=== PATIENT | female | born 1955 | race Caucasian/White ===

== ENCOUNTER → 2016-10-07 | Outpatient (CLI) | payer MEDICARE, BC ==
[2016-10-07 20:29] LABS: Basophils # (A) 0.1 k/uL (0-0.2); Basophils % (A) 1 %; CH 29.9; CHCM 32.7; Eosinophils # (A) 0.2 k/uL (0-0.7); Eosinophils % (A) 3 %; HCT 47.2 % (34.0-46.0); HDW 2.68; HGB 15.2 gm/dL (11.4-16.0); Luc # (Auto) 0.14; Luc % (Auto) 1; Lymphocytes # (A) 1.6 k/uL (1.0-4.8); Lymphocytes % (A) 17 %; MCH 29.7 pg (25.0-35.0); MCHC 32.3 g/dL (31.0-37.0); MCV 91.8 fL (80.0-100.0); Mean Platelet Volume 8.4; Monocytes # (A) 0.5 k/uL (0-1.0); Monocytes % (A) 5 %; Neutrophils # (A) 7.1 k/uL (1.3-7.7); Neutrophils % (A) 73 %; RBC 5.14 m/uL (3.80-5.40); RDW 13.6 % (11.5-15.5); WBC 9.7 k/uL (3.8-10.6); WBC (Perox) 9.87
[2016-10-07 21:19] LABS: ALT 37 U/L (9-52); AST 16 U/L (14-36); Alkaline Phosphatase 130 U/L (38-126); Amylase 41 U/L (30-110); Anion Gap 12 mmol/L; Blood Urea Nitrogen 25 mg/dL (7-17); Calcium 9.6 mg/dL (8.4-10.2); Carbon Dioxide 27 mmol/L (22-30); Chloride 105 mmol/L (98-107); Glucose 96 mg/dL (74-99); Non-African American GFR(MDRD) 51 (>60 ml/min/1.73 sqM); Sodium 144 mmol/L (137-145); Total Bilirubin 1.6 mg/dL (0.2-1.3); Total Protein 7.4 g/dL (6.3-8.2)
== END | disposition home or self-care (01) ==
LOC: MMGSC 12:43
PROVIDERS: ATTEND Family Medicine
DX: R10.9 Unspecified abdominal pain (principal)
CPT/HCPCS: 36415; 80053; 82150; 83690; 85025; 99214

== ENCOUNTER → 2016-10-13 | Outpatient (CLI) | payer MEDICARE, BC ==
--- NOTE | 2016-10-13 09:53 | US ---
EXAMINATION TYPE: US abdomen complete DATE OF EXAM: 10/13/2016 9:31 AM COMPARISON: No previous CLINICAL HISTORY: RUQ Pain R10.11, R10.84 Nausea, R11.0 Abd Pain. RUQ pain x 1 month, nausea, loss of appetite, diarrhea, history of cholecystectomy, obese patient EXAM MEASUREMENTS: Liver Length: 19.0 cm Gallbladder Wall: surgically absent CBD: 0.6 cm Spleen: 11.5 cm Right Kidney: 11.2 x 5.1 x 5.0 cm Left Kidney: 11.1 x 5.5 x 5.1 cm Technically difficult and limited study due to patient's body habitus Pancreas: visualized portions wnl, tail obscured by overlying midline bowel gas Liver: enlarged at 19.0cm, heterogeneous without any definite lesions seen at this time, scanned int ercostally, limited by rib shadowing Gallbladder: surgically absent Evidence for sonographic Jones's sign: no CBD: visualized portions wnl, limited by overlying bowel gas Spleen: visualized portions wnl, limited by rib shadowing Right Kidney: wnl Left Kidney: 0.6cm echogenic focus superior pole Upper IVC: wnl Abd Aorta: visualized portions wnl, limited by overlying midline bowel gas The liver is heterogenous. The intrahepatic portion of the IVC and proximal abdominal aorta are withi n normal limits. The gallbladder is surgically absent. Common bile duct is unremarkable. The visuali zed portions of the pancreas are homogenous. The spleen is unremarkable. Kidneys are symmetric and free of hydronephrosis. Nonobstructing calculus upper pole left kidney. No renal lesions are seen. IMPRESSION: 1. Fatty liver versus diffuse hepatocellular disease. Mild hepatomegaly. 2. Nonobstructing calculus upper pole left kidney.
== END | disposition home or self-care (01) ==
LOC: RADUSWWP 09:06
PROVIDERS: ATTEND Family Medicine
DX: R16.0 Hepatomegaly, not elsewhere classified (principal); N20.0 Calculus of kidney
CPT/HCPCS: 76700

== ENCOUNTER → 2017-02-18 | Outpatient (CLI) | payer MEDICARE, BC ==
--- NOTE | 2017-02-18 21:24 | XR ---
EXAMINATION TYPE: XR KUB DATE OF EXAM: 02/18/2017 COMPARISON: NONE HISTORY: Pain TECHNIQUE: One view abdominal series FINDINGS: The osseous structures are intact. The bowel gas pattern is nonspecific. Lung bases are clear. Calc ifications the pelvis are nonspecific. Arthropathy of the hips. Surgical change in the right upper qu adrant. Degenerative change of the spine. IMPRESSION: 1. Nonspecific abdomen. No definite calcifications overlying the left kidney. Calcifications in the pelvis are nonspecific. A distal ureteral calculus cannot be entirely excluded. No prior x-ray availa ble to compare.
== END ==
LOC: RADXRMAIN 16:16
PROVIDERS: ATTEND Urology
DX: N20.0 Calculus of kidney (principal)
CPT/HCPCS: 74000

== ENCOUNTER → 2017-02-23 | Outpatient (CLI) | payer MEDICARE, BC ==
[2017-02-23 19:33] LABS: Basophils % (A) 1 %; CH 29.8; CHCM 33.5; Eosinophils # (A) 0.2 k/uL (0-0.7); Eosinophils % (A) 3 %; HCT 42.2 % (34.0-46.0); HDW 2.97; HGB 14.4 gm/dL (11.4-16.0); Luc # (Auto) 0.19; Luc % (Auto) 3; Lymphocytes # (A) 1.6 k/uL (1.0-4.8); Lymphocytes % (A) 21 %; MCH 30.6 pg (25.0-35.0); MCHC 34.2 g/dL (31.0-37.0); MCV 89.6 fL (80.0-100.0); Mean Platelet Volume 8.4; Monocytes # (A) 0.5 k/uL (0-1.0); Monocytes % (A) 6 %; Neutrophils % (A) 67 %; RBC 4.72 m/uL (3.80-5.40); RDW 13.4 % (11.5-15.5); WBC 7.5 k/uL (3.8-10.6); WBC (Perox) 7.45
[2017-02-23 19:40] LABS: ALT 40 U/L (9-52); AST 22 U/L (14-36); Alkaline Phosphatase 127 U/L (38-126); Anion Gap 12 mmol/L; Blood Urea Nitrogen 15 mg/dL (7-17); Calcium 9.6 mg/dL (8.4-10.2); Carbon Dioxide 23 mmol/L (22-30); Chloride 110 mmol/L (98-107); Cholesterol 160 mg/dL (<200); Glucose 97 mg/dL (74-99); HDL Cholesterol 49 mg/dL (40-60); Non-African American GFR(MDRD) >60 (>60 ml/min/1.73 sqM); Potassium 4.1 mmol/L (3.5-5.1); Sodium 145 mmol/L (137-145); Total Bilirubin 1.1 mg/dL (0.2-1.3); Total Protein 6.7 g/dL (6.3-8.2)
[2017-02-23 20:28] LABS: Vitamin B12 331 pg/mL (239-931)
== END | disposition home or self-care (01) ==
LOC: MMGSC 13:51
PROVIDERS: ATTEND Family Medicine
DX: E78.5 Hyperlipidemia, unspecified (principal); R53.83 Other fatigue; I10 Essential (primary) hypertension; R10.11 Right upper quadrant pain
CPT/HCPCS: 36415; 80053; 80061; 82306; 82607; 84443; 85025

== ENCOUNTER → 2017-08-10 | Outpatient (CLI) | payer MEDICARE, BC | END | disposition home or self-care (01) | LOC: MMGSC 12:12 | PROVIDERS: ATTEND Family Medicine | DX: J32.9 Chronic sinusitis, unspecified (principal) | CPT/HCPCS: 87070; 90686; 99214 ==

== ENCOUNTER → 2017-11-07 | Outpatient (CLI) | payer MEDICARE, BC ==
--- NOTE | 2017-11-07 13:13 | CT ---
EXAMINATION TYPE: CT abdomen pelvis w con DATE OF EXAM: 11/07/2017 HISTORY: c/o nausea and vomiting, RUQ pain, left groin pain X 9 months. hx of son, tumor removed fr om colon years ago CT DLP: 2438.8mGycm Automated Exposure Control for Dose Reduction was Utilized. CONTRAST: CT scan of the abdomen and pelvis is performed with oral and with IV Contrast, patient injected with 100 mL of Isovue 300. COMPARISON: None. FINDINGS: LUNG BASES: There is some bibasilar linear scarring and/or atelectasis. LIVER/GB: Cholecystectomy clips are seen. PANCREAS: No significant abnormality is seen. SPLEEN: No significant abnormality is seen. ADRENALS: No significant abnormality is seen. KIDNEYS: No significant abnormality is seen. BOWEL: The oral contrast reaches level of the mid transverse colon. There is no suspicious small or l arge bowel dilatation. A few diverticula are seen in the sigmoid colon. There is no convincing CT daya dence for acute diverticulitis. UTERUS/ADNEXA: Uterus is surgically absent or markedly atrophic in appearance. Scattered pelvic phleb oliths are seen. There is 1.3 cm round soft tissue lesion right lower abdomen/upper pelvis anterior t o the iliopsoas muscle could reflect high position residual right ovary or slightly enlarged lymph no de. Clinical correlation advised. LYMPH NODES: No greater than 1cm abdominal or pelvic lymph nodes are clearly appreciated. OSSEOUS STRUCTURES: There is underlying levoconvex scoliosis centered at L1-L2 level. There is advanc ed disc space narrowing and spurring right L1-L2 level. There is facet arthropathy lower lumbar level s. OTHER: No significant additional abnormality is seen. IMPRESSION: No significant acute finding is seen to account for patient's clinical symptoms. Possibly high position residual right ovary versus slightly enlarged right-sided lymph node. Clinical correla tion advised.
== END | disposition home or self-care (01) ==
LOC: RADCTMAIN 11:55
PROVIDERS: ATTEND Family Medicine
DX: R10.11 Right upper quadrant pain (principal); R10.32 Left lower quadrant pain; R11.2 Nausea with vomiting, unspecified
CPT/HCPCS: 74177; Q9967

== ENCOUNTER → 2017-11-30 | Outpatient (CLI) | payer MEDICARE, BC | END | disposition home or self-care (01) | LOC: LABWHC1 10:53 | PROVIDERS: ATTEND Nurse Practitioner Acute Care | DX: I49.3 Ventricular premature depolarization (principal); I49.9 Cardiac arrhythmia, unspecified | CPT/HCPCS: 93005 ==

== ENCOUNTER 2018-01-31 10:53 | Observation (INO) | payer MEDICARE, BC ==
[2018-01-31] MEDS ORDERED: ASPIRIN 81 MG PO STA (11:11)
--- NOTE | 2018-01-31 11:15 | ED ---
Chest Pain HPI - General Chief Complaint: Chest Pain Stated Complaint: Chest pain/sob Time Seen by Provider: 01/31/18 11:05 Source: patient, RN notes reviewed Mode of arrival: wheelchair Limitations: no limitations - History of Present Illness Initial Comments: This is a 63-year-old female who presents with complaints of several days of chest pain seems be worse especially last evening she states is been pressure like chest pain but was very crushing last evening currently is about 8/10 severity he gets somewhat better sitting up but is really better when she supine. She states his mid and right-sided chest pain no cough no fevers chills sweats no recent trauma she states she did have chest pain in the past did have a cardiac catheterization that was good his pain is different than his last pain she had. She also does relate that she uses sleep apnea machine and at times a nasal part will come off. She's not sure whether this has anything to do with the pain today. MD Complaint: chest pain - Related Data Home Medications Medication Instructions Recorded Confirmed Baclofen 10 mg PO TID 01/03/15 01/31/18 Hydrocodone/Acetaminophen [Lortab 1 each PO Q6HR PRN 01/03/15 01/31/18 7.5-325 mg Tablet] Naproxen 500 mg PO Q12HR 01/03/15 01/31/18 Pantoprazole Sodium [Protonix] 40 mg PO BID 01/03/15 01/31/18 tiZANidine [Zanaflex] 4 mg PO HS 01/03/15 01/31/18 Aspirin [Adult Low Dose Aspirin EC] 81 mg PO HS 04/02/16 01/31/18 Atorvastatin [Lipitor] 40 mg PO W/SUPPER 04/02/16 01/31/18 Cholecalciferol [Vitamin D3] 2,000 unit PO DAILY 04/02/16 01/31/18 Gabapentin [Neurontin] 300 mg PO BID 04/02/16 01/31/18 Hydrochlorothiazide [Hydrodiuril] 25 mg PO DAILY 04/02/16 01/31/18 Metoprolol Tartrate [Lopressor] 50 mg PO BID 04/02/16 01/31/18 Oxybutynin Chloride [Ditropan XL] 5 mg PO DAILY 04/02/16 01/31/18 Theophylline 24 Hour [Mark-24] 300 mg PO DAILY PRN 04/02/16 01/31/18 Tolterodine ER [Detrol LA] 4 mg PO DAILY 04/02/16 01/31/18 rOPINIRole HCL [Requip] 0.5 mg PO HS 04/02/16 01/31/18 Escitalopram [Lexapro] 20 mg PO DAILY 01/31/18 01/31/18 Topiramate [Topamax] 50 mg PO DAILY 01/31/18 01/31/18 Venlafaxine HCl ER [Effexor Xr] 37.5 mg PO DAILY 01/31/18 01/31/18 Allergies Allergy/AdvReac Type Severity Reaction Status Date / Time iodine Allergy Rash/Hives, Verified 01/31/18 11:31 itching Review of Systems ROS Statement: Those systems with pertinent positive or pertinent negative responses have been documented in the HPI. ROS Other: All systems not noted in ROS Statement are negative. EKG Findings - EKG Results: EKG: interpreted by ERMD (This EKG was compared with one dated 11/30/17), sinus rhythm (Sinus rhythm rate 68 IL interval 150 to QRS duration 84 daily since QTC of 392/416 nonspecific septal changes) Past Medical History Past Medical History: Asthma, Cancer, Chest Pain / Angina, Fibromyalgia, GERD/ Reflux, Hyperlipidemia, Hypertension, Musculoskeletal Disorder, Neurologic Disorder, Osteoarthritis (OA), Pneumonia, Sleep Apnea/CPAP/BIPAP Additional Past Medical History / Comment(s): hx endometrial cancer (in remission,) migraines, irregular heartbeat, varicose veins, poor circulation- swelling lower legs and feet, cerebral palsy-uses cane History of Any Multi-Drug Resistant Organisms: None Reported Past Surgical History: Cholecystectomy, Hysterectomy, Tonsillectomy Additional Past Surgical History / Comment(s): Carlos cataract, carorid tumor removed,cervical discectomy with fusion, R breast lumpectomy, cox neuromas carlos feet Past Anesthesia/Blood Transfusion Reactions: Previous Problems w/ Anesthesia, Motion Sickness, Postoperative Nausea & Vomiting (PONV) Additional Past Anesthesia/Blood Transfusion Reaction / Comment(s): diff coming out of anesthesia Past Psychological History: Anxiety, Depression Smoking Status: Never smoker Past Alcohol Use History: None Reported Past Drug Use History: None Reported - Past Family History Mother Family Medical History: No Reported History General Exam - General Exam Comments Initial Comments: This is a well-developed well-nourished awake alert oriented 3 female Limitations: no limitations General appearance: alert, anxious Head exam: Present: atraumatic, normocephalic, normal inspection Eye exam: Present: normal appearance, PERRL, EOMI. Absent: scleral icterus, conjunctival injection, periorbital swelling ENT exam: Present: normal exam, mucous membranes moist Neck exam: Present: normal inspection, full ROM. Absent: tenderness, meningismus, lymphadenopathy Respiratory exam: Present: normal lung sounds bilaterally, chest wall tenderness (Some tenderness over the costochondral and costosternal margin on the right but this does not reproduce the patient's pain she states.). Absent: respiratory distress, wheezes, rales, rhonchi, stridor Cardiovascular Exam: Present: regular rate, normal rhythm, normal heart sounds. Absent: systolic murmur, diastolic murmur, rubs, gallop, clicks GI/Abdominal exam: Present: soft, normal bowel sounds, other (Obese abdomen). Absent: distended, tenderness, guarding, rebound, rigid Extremities exam: Present: normal inspection, full ROM, normal capillary refill. Absent: tenderness, pedal edema, joint swelling, calf tenderness Back exam: Present: normal inspection Neurological exam: Present: alert, oriented X3, CN II-XII intact Psychiatric exam: Present: normal affect, normal mood Skin exam: Present: warm, dry, intact, normal color. Absent: rash Course Vital Signs 01/31/18 01/31/18 01/31/18 10:57 11:43 12:00 Temperature 98.6 F Pulse Rate 76 58 L 60 Respiratory 18 18 18 Rate Blood Pressure 157/79 137/64 132/68 O2 Sat by Pulse 95 97 96 Oximetry 01/31/18 01/31/18 12:34 13:28 Temperature Pulse Rate 77 52 L Respiratory 18 20 Rate Blood Pressure 119/65 130/61 O2 Sat by Pulse 95 98 Oximetry Chest Pain MDM - MDM I did review the imaging and report no acute findings. Patient still is having intermittent chest pain patient will be admitted for inpatient evaluation I did discuss the case with the patient her and Dr. Leung Disposition Clinical Impression: Unstable angina pectoris, Chest pain Disposition: ADMITTED IP TO THIS HOSP Condition: Stable Referrals: Monique Maloney MD [Primary Care Provider] - 1-2 days
[2018-01-31 11:46] LABS: Basophils % (A) 0 %; Eosinophils # (A) 0.2 k/uL (0-0.7); Eosinophils % (A) 2 %; HCT 41.3 % (34.0-46.0); HGB 13.9 gm/dL (11.4-16.0); Lymphocytes # (A) 1.4 k/uL (1.0-4.8); Lymphocytes % (A) 14 %; MCH 29.3 pg (25.0-35.0); MCHC 33.5 g/dL (31.0-37.0); MCV 87.4 fL (80.0-100.0); Monocytes # (A) 0.5 k/uL (0-1.0); Monocytes % (A) 6 %; Neutrophils # (A) 7.6 k/uL (1.3-7.7); Neutrophils % (A) 77 %; Platelet Count 338 k/uL (150-450); RBC 4.73 m/uL (3.80-5.40); RDW 13.3 % (11.5-15.5); WBC 9.9 k/uL (3.8-10.6)
[2018-01-31] MEDS: NITROGLYCERIN SL TABS 0.4 MG TAB SUBLINGUAL STA ×3 (11:48→12:12)
[2018-01-31 11:54] LABS: ALT 34 U/L (9-52); AST 22 U/L (14-36); Alkaline Phosphatase 121 U/L (38-126); Amylase <30 U/L (30-110); Anion Gap 9 mmol/L; Blood Urea Nitrogen 14 mg/dL (7-17); Calcium 9.4 mg/dL (8.4-10.2); Carbon Dioxide 26 mmol/L (22-30); Chloride 105 mmol/L (98-107); Glucose 104 mg/dL (74-99); Lipase 45 U/L (23-300); Magnesium 1.8 mg/dL (1.6-2.3); Potassium 3.6 mmol/L (3.5-5.1); Sodium 140 mmol/L (137-145); Total Bilirubin 1.3 mg/dL (0.2-1.3); Total Protein 6.5 g/dL (6.3-8.2)
[2018-01-31 12:07] LABS: Creatine Kinase 74 U/L (30-135)
[2018-01-31 12:19] LABS: Troponin I <0.012 ng/mL (0.000-0.034)
[2018-01-31 12:27] LABS: Partial Thromboplastin Time 24.8 sec (22.0-30.0); Prothrombin Time 10.1 sec (9.0-12.0)
[2018-01-31 12:42] LABS: D-Dimer 0.7 mg/L FEU (<0.60)
[2018-01-31] MEDS ORDERED: FAMOTIDINE 20 MG/2 ML VIAL IV STA (12:51)
[2018-01-31] MEDS ORDERED: methylPREDNISolone SOD SUCCI 125 MG/2 ML VIAL IV STA (12:51)
[2018-01-31] MEDS ORDERED: diphenhydrAMINE 50 MG/ML 1 ML VIAL IVP STA (12:51)
--- NOTE | 2018-01-31 12:54 | XR ---
EXAMINATION TYPE: XR chest 2V DATE OF EXAM: 01/31/2018 COMPARISON: NONE HISTORY: Chest pain and shortness of breath TECHNIQUE: Frontal and lateral views of the chest are obtained. FINDINGS: There is no focal air space opacity, pleural effusion, or pneumothorax seen. The cardiac silhouette size is within normal limits. Patient shows postoperative change to the neck. There are ov erlying cardiac leads. Strand-like densities at the right lung base are noted. IMPRESSION: Probable basilar atelectasis, follow-up as indicated.
--- NOTE | 2018-01-31 15:00 | CT ---
EXAMINATION TYPE: CT chest angio for PE DATE OF EXAM: 01/31/2018 COMPARISON: None HISTORY: 63-year-old female Shortness of breath and Mid to Right sided Chest pain for 3 days TECHNIQUE: Contiguous axial scanning of the chest performed with IV Contrast, patient injected with 1 00 mL of Isovue 370. Coronal/sagittal MIP reconstructions performed. CT DLP: 937.6 mGycm Automated exposure control for dose reduction was used. FINDINGS: Heart is upper limits of normal in size without pericardial effusion. Aorta is normal caliber with conventional arch vessel branching anatomy. Satisfactory opacification of the pulmonary artery system but with mild motion artifacts and addition al artifacts due to patient's large body habitus. This results in heterogeneity especially of the seg mental and more distal arterial branches of the lower lobes. No pulmonary embolus seen within the upp er or mid lungs. No thoracic lymphadenopathy. Strandy atelectasis in the mid and lower lungs. No consolidation or pleural effusion. Visualized upper abdomen shows cholecystectomy clips. Bones: ACDF hardware. Degenerative disc disease lower thoracic spine. IMPRESSION: 1. ARTIFACTS DUE TO SOME MILD MOTION BUT ALSO DUE TO LARGE BODY HABITUS. MANY OF THE SEGMENTAL AND MO RE DISTAL BRANCHES OF THE LOWER LOBES ARE NONDIAGNOSTIC. NO PULMONARY EMBOLUS SEEN IN THE UPPER OR OR D LUNGS. 2. STRANDY AREAS OF ATELECTASIS MID AND LOWER LUNGS.
[2018-01-31] MEDS ORDERED: HEPARIN SODIUM,PORCINE 5,000 UNIT/ML 1 ML VIAL IV ONE (15:36)
[2018-01-31] MEDS ORDERED: NITROGLYCERIN SL TABS 0.4 MG TAB SUBLINGUAL PRN (15:36)
[2018-01-31] MEDS ORDERED: THEOPHYLLINE 24 HOUR 300 MG CAP.ER.24H PO PRN (15:41)
[2018-01-31] MEDS ORDERED: HYDROcodone/APAP 7.5-325MG 1 EACH TAB PO PRN (15:41)
[2018-01-31] MEDS ORDERED: HEPARIN SOD,PORK IN 0.45% NACL 25,000 UNIT in 0.45% NACL 1 500ML.BAG IV SCH (15:45)
[2018-01-31] MEDS: SODIUM CHLORIDE 0.9% 1,000 ML IV SCH (16:11)
[2018-01-31] MEDS ORDERED: LORazepam 1 MG TAB PO PRN (16:41)
--- NOTE | 2018-01-31 16:54 | P.HPIM ---
History of Present Illness Chief Complaint: Chest pain This is a 63-year-old female who has multiple medical problems much of those related to musculoskeletal who came to emergency department complaining of chest pain. She describes chest pain as a centrally located pressure-like started 3 days ago locally and progressively getting worse or no radiation with seed. T from moderate to severe today. She did not try any particular medication for this. She didn't try hydrocodone today with some relief but not full relief. No particular provoking factors. Found that got some what better when laying down but then soon found out the pain got worse and improved after she sat up. Otherwise no any aggravating or alleviating factors. Pain is associated one episode of shortness of breath that lasted a few minutes and self resolved. Otherwise no nausea vomiting headache sour taste in the mouth or heartburns. Also patient noticed some pain and burning sensation in both of her arms and both legs. She cannot exactly point out to exact location she says all over. 2 weeks ago she felt that her legs were weak and she fell down without loss of consciousness. No no problems with bowel movements or urination. She has history of cervical discopathy at with laminectomy done 8 years ago. She does not have any significant neck pain just her usual chronic pain. She is due for another MRI to evaluate some of the symptoms. Review of Systems Constitutional: Reports chronic pain, Denies anorexia, Denies chills, Denies daytime sleepiness, Denies fatigue, Denies fever Ears, nose, mouth and throat: Denies headache, Denies hoarseness Cardiovascular: Reports as per HPI Respiratory: Reports as per HPI Gastrointestinal: Denies abdominal pain, Denies diarrhea, Denies jaundice Genitourinary: Denies difficulty voiding Musculoskeletal: Reports arm numbness/tingling, Reports leg numbness/tingling Integumentary: Denies pruritus, Denies rash Neurological: Reports balance difficulties, Denies ataxia, Denies change in speech, Denies confusion, Denies convulsions, Denies double vision, Denies syncope Psychiatric: Denies anxiety, Denies depression Endocrine: Denies cold intolerance, Denies heat intolerance, Denies recent glucocorticoid use, Denies weight change Past Medical History Past Medical History: Asthma, Cancer, Chest Pain / Angina, Fibromyalgia, GERD/ Reflux, Hyperlipidemia, Hypertension, Musculoskeletal Disorder, Neurologic Disorder, Osteoarthritis (OA), Pneumonia, Sleep Apnea/CPAP/BIPAP Additional Past Medical History / Comment(s): hx endometrial cancer (in remission,) migraines, irregular heartbeat, varicose veins, poor circulation- swelling lower legs and feet, cerebral palsy-uses cane History of Any Multi-Drug Resistant Organisms: None Reported Past Surgical History: Cholecystectomy, Hysterectomy, Tonsillectomy Additional Past Surgical History / Comment(s): Carlos cataract, carorid tumor removed,cervical discectomy with fusion, R breast lumpectomy, cox neuromas carlos feet Past Anesthesia/Blood Transfusion Reactions: Previous Problems w/ Anesthesia, Motion Sickness, Postoperative Nausea & Vomiting (PONV) Additional Past Anesthesia/Blood Transfusion Reaction / Comment(s): diff coming out of anesthesia Past Psychological History: Anxiety, Depression Smoking Status: Never smoker Past Alcohol Use History: None Reported Past Drug Use History: None Reported - Past Family History Mother Family Medical History: No Reported History Medications and Allergies Home Medications Medication Instructions Recorded Confirmed Type Baclofen 10 mg PO TID 01/03/15 01/31/18 History Hydrocodone/Acetaminophen [Lortab 1 each PO Q6HR PRN 01/03/15 01/31/18 History 7.5-325 mg Tablet] Naproxen 500 mg PO Q12HR 01/03/15 01/31/18 History Pantoprazole Sodium [Protonix] 40 mg PO BID 01/03/15 01/31/18 History tiZANidine [Zanaflex] 4 mg PO HS 01/03/15 01/31/18 History Aspirin [Adult Low Dose Aspirin EC] 81 mg PO HS 04/02/16 01/31/18 History Atorvastatin [Lipitor] 40 mg PO W/SUPPER 04/02/16 01/31/18 History Cholecalciferol [Vitamin D3] 2,000 unit PO DAILY 04/02/16 01/31/18 History Gabapentin [Neurontin] 300 mg PO BID 04/02/16 01/31/18 History Hydrochlorothiazide [Hydrodiuril] 25 mg PO DAILY 04/02/16 01/31/18 History Metoprolol Tartrate [Lopressor] 50 mg PO BID 04/02/16 01/31/18 History Oxybutynin Chloride [Ditropan XL] 5 mg PO DAILY 04/02/16 01/31/18 History Theophylline 24 Hour [Mark-24] 300 mg PO DAILY PRN 04/02/16 01/31/18 History Tolterodine ER [Detrol LA] 4 mg PO DAILY 04/02/16 01/31/18 History rOPINIRole HCL [Requip] 0.5 mg PO HS 04/02/16 01/31/18 History Escitalopram [Lexapro] 20 mg PO DAILY 01/31/18 01/31/18 History Topiramate [Topamax] 50 mg PO DAILY 01/31/18 01/31/18 History Venlafaxine HCl ER [Effexor Xr] 37.5 mg PO DAILY 01/31/18 01/31/18 History Allergies Allergy/AdvReac Type Severity Reaction Status Date / Time iodine Allergy Rash/Hives, Verified 01/31/18 11:31 itching Physical Exam Vitals: Vital Signs Temp Pulse Resp BP Pulse Ox 01/31/18 16:10 100.1 F H 61 18 153/72 98 01/31/18 13:28 52 L 20 130/61 98 01/31/18 12:34 77 18 119/65 95 01/31/18 12:00 60 18 132/68 96 01/31/18 11:43 58 L 18 137/64 97 01/31/18 10:57 98.6 F 76 18 157/79 95 Intake and Output 01/31/18 01/31/18 01/31/18 06:59 14:59 22:59 Other: Weight 141.067 kg - Constitutional General appearance: no no acute distress, obese - EENT Eyes: anicteric sclerae, EOMI, PERRLA, dentition normal - Neck Neck: no lymphadenopathy, normal ROM, no rigidity, no stridor, no thyromegaly - Respiratory Respiratory: bilateral: CTA - Cardiovascular Rhythm: regular Heart sounds: normal: S1, S2 Abnormal Heart Sounds: no systolic murmur, no diastolic murmur, no rub - Gastrointestinal General gastrointestinal: normal bowel sounds, no organomegaly, soft, no tenderness - Integumentary Integumentary: normal - Neurologic Neurologic: CNII-XII intact - Musculoskeletal Musculoskeletal: left sided weakness - Psychiatric Psychiatric: A&O x's 3 Results CBC & Chem 7: 01/31/18 11:30 01/31/18 11:30 Labs: Abnormal Lab Results - Last 24 Hours (Table) 01/31/18 01/31/18 Range/Units 11:30 11:30 D-Dimer 0.70 H (<0.60) mg/L FEU Glucose 104 H (74-99) mg/dL Amylase <30 L (30-110) U/L CT scan - chest: report reviewed Thrombosis Risk Factor Assmnt - DVT/VTE Prophylaxis DVT/VTE Prophylaxis: Low risk, early ambulation encouraged Assessment and Plan Plan: 1. Atypical chest pain Troponin negative No significant EKG changes Cardiology consult Continue aspirin and statin Discontinue heparin Check sedimentation rate Pain control next line 2. Arm and leg numbness history of cervical osteoarthritis MRI ordered Patient is claustrophobic and we will attempt to premedicate if possible 3. Obesity May consider checking cortisol level which can be of 1 to PCP office We will check TSH Patient is a full code We'll admit under observation 2 or less midnights Her is surrogate decision maker and he was present in the room during the conversation Time with Patient: Greater than 30
[2018-01-31 17:24] LABS: Creatine Kinase 78 U/L (30-135)
[2018-01-31 17:37] LABS: Creatine Kinase MB 0.9 ng/mL (0.0-2.4); Troponin I <0.012 ng/mL (0.000-0.034)
[2018-01-31] MEDS: BACLOFEN 10 MG TAB PO SCH ×2 (18:36→20:33)
[2018-01-31] MEDS: ATORVASTATIN 40 MG TAB PO SCH (18:36)
[2018-01-31] MEDS: PANTOPRAZOLE 40 MG TABLET PO SCH (18:36)
[2018-01-31] MEDS: NITROGLYCERIN OINT 1 INCH/GM PACKET TOPICAL SCH ×2 (18:41→23:09)
[2018-01-31] MEDS: tiZANidine 4 MG TAB PO SCH (20:32)
[2018-01-31] MEDS: METOPROLOL TARTRATE 50 MG TAB PO SCH (20:32)
[2018-01-31] MEDS: GABAPENTIN 300 MG CAP PO SCH (20:32)
[2018-01-31] MEDS ORDERED: NAPROXEN 250 MG TAB PO PRN (21:00)
[2018-01-31 23:48] LABS: Creatine Kinase 80 U/L (30-135)
[2018-02-01 00:01] LABS: Creatine Kinase MB 0.9 ng/mL (0.0-2.4); Troponin I <0.012 ng/mL (0.000-0.034)
[2018-02-01 02:41] LABS: Cholesterol 179 mg/dL (<200); HDL Cholesterol 49 mg/dL (40-60); LDL Cholesterol,Calculated 110 mg/dL (0-99); Triglycerides 102 mg/dL (<150)
[2018-02-01] MEDS: NITROGLYCERIN OINT 1 INCH/GM PACKET TOPICAL SCH (04:32)
[2018-02-01] MEDS ORDERED: HYDROCHLOROTHIAZIDE 25 MG TAB PO SCH (09:00)
[2018-02-01] MEDS ORDERED: ASPIRIN 325 MG TAB PO SCH (09:00)
[2018-02-01] MEDS ORDERED: TOLTERODINE 4 MG PO SCH (09:00)
[2018-02-01] MEDS: OXYBUTYNIN XL 5 MG TAB.ER.24 PO SCH (10:44)
[2018-02-01] MEDS: TOPIRAMATE 25 MG TAB PO SCH (10:44)
[2018-02-01] MEDS: GABAPENTIN 300 MG CAP PO SCH ×2 (10:44→21:32)
[2018-02-01] MEDS: ESCITALOPRAM 20 MG TAB PO SCH (10:44)
[2018-02-01] MEDS: CHOLECALCIFEROL 1,000 UNIT TAB PO SCH (10:44)
[2018-02-01] MEDS: BACLOFEN 10 MG TAB PO SCH ×3 (10:44→21:32)
[2018-02-01] MEDS: VENLAFAXINE HCL ER 37.5 MG CAP PO SCH (10:44)
[2018-02-01] MEDS: PANTOPRAZOLE 40 MG TABLET PO SCH ×2 (10:44→21:32)
--- NOTE | 2018-02-01 11:49 | P.CRDCN ---
History of Present Illness History of present illness: Mrs. Anthony is a pleasant 63-year-old female past medical history significant for hypertension, obstructive sleep apnea, dyslipidemia, fibromyalgia and obesity. She sees Dr. TESHA Hammond in the office. We have been asked to see her in consultation for chest pain. She complains of progressive shortness of breath over the last 3 weeks. Sometimes with exertion and sometimes at rest. The shortness of breath seemed to intensify over the past 2 days and she started developing a pain in the right anteriro chest wall with radiation to the right shoulder. The pain came while she was sitting down at rest with no specific aggravating or alleviating factors. When she came to the hospital she was given nitroglycerin and aspirin and her pain seemed to subside. She also states over the previous year or so she has noticed her heart "flip flopping" mostly at night when she is sleeping. She wears a C-pap machine and notices the palpitations when her mask has come loose off of her nose. Once she repositions herself the symptoms subside. She underwent cardiac catheterization in March 2016 after a positive stress test which revealed no evidence of obstructive coronary artery disease. She continued to have symptoms of chest discomfort after the procedure as well and was advised risk factor modification. EKG reveals sinus mechanism with non-specific abnormalities, no acute changes noted. Chest xray with basilar atelectasis. No overt heart failure noted. CTA reveals no evidence of pulmonary embolism with strandy areas of atelectasis mid and lower lungs. Laboratory data reviewed, hemoglobin 13.9, platelets 338, d-dimer 0.7, sodium 140, potassium 3.6, magnesium 1.8, creatinine 0.8, cardiac enzymes negative 3, TSH 2.67. Current cardiac medications include Lopressor 50 mg twice a day, hydrochlorothiazide 25 mg daily, atorvastatin 40 mg daily and aspirin 81 mg daily. Most recent echocardiogram performed in the office February 2016 reveals preserved left ventricular systolic function with ejection fraction 60%. There is evidence of mild to moderate mitral regurgitation, mild tricuspid regurgitation and a thickened and calcified aortic valve with no evidence of stenosis. Review of Systems At the time of my exam: CONSTITUTIONAL: Denies fever. Denies chills. EYES: Denies blurred vision. Denies vision changes. Denies eye pain. EARS, NOSE, MOUTH & THROAT: Denies headache. Denies sore throat. Denies ear pain. CARDIOVASCULAR: Denies chest pain. Denies shortness of breath. Denies orthopnea. Denies PND. Denies palpitations. RESPIRATORY: Denies cough. GASTROINTESTINAL: Denies abdominal pain. Denies diarrhea. Denies constipation. Denies nausea. Denies vomiting. MUSCULOSKELETAL: Denies myalgias. INTEGUMENTARY: Denies pruitis. Denies rash. NEUROLOGIC: Denies numbness. Denies tingling. Denies weakness. PSYCHIATRIC: Denies anxiety. Denies depression. ENDOCRINE: Denies fatigue. Denies weight change. Denies polydipsia. Denies polyurina. GENITOURINARY: Denies burning, hematuria or urgency with micturation. HEMATOLOGIC: Denies history of anemia. Denies bleeding. Past Medical History Past Medical History: Asthma, Cancer, Chest Pain / Angina, Fibromyalgia, GERD/ Reflux, Hyperlipidemia, Hypertension, Musculoskeletal Disorder, Neurologic Disorder, Osteoarthritis (OA), Pneumonia, Sleep Apnea/CPAP/BIPAP Additional Past Medical History / Comment(s): hx endometrial cancer (in remission,) migraines, irregular heartbeat, varicose veins, poor circulation- swelling lower legs and feet, cerebral palsy-uses cane, occipital neuralgia, optic neuritis, venners front teeth, past stress test History of Any Multi-Drug Resistant Organisms: None Reported Past Surgical History: Cholecystectomy, Heart Catheterization, Hysterectomy, Tonsillectomy Additional Past Surgical History / Comment(s): Chet cataract, benign carotid tumor- removed,cervical discectomy with fusion, R breast lumpectomy, cox neuromas chet feet Past Anesthesia/Blood Transfusion Reactions: Previous Problems w/ Anesthesia, Motion Sickness, Postoperative Nausea & Vomiting (PONV) Additional Past Anesthesia/Blood Transfusion Reaction / Comment(s): diff coming out of anesthesia Smoking Status: Never smoker - Past Family History Mother Family Medical History: Hypertension, Osteoarthritis (OA) Additional Family Medical History / Comment(s): neuropathy, carpal tunnel Father Family Medical History: Hypertension Medications and Allergies Home Medications Medication Instructions Recorded Confirmed Type Baclofen 10 mg PO TID 01/03/15 01/31/18 History Hydrocodone/Acetaminophen [Lortab 1 each PO Q6HR PRN 01/03/15 01/31/18 History 7.5-325 mg Tablet] Naproxen 500 mg PO Q12HR 01/03/15 01/31/18 History Pantoprazole Sodium [Protonix] 40 mg PO BID 01/03/15 01/31/18 History tiZANidine [Zanaflex] 4 mg PO HS 01/03/15 01/31/18 History Aspirin [Adult Low Dose Aspirin EC] 81 mg PO HS 04/02/16 01/31/18 History Atorvastatin [Lipitor] 40 mg PO W/SUPPER 04/02/16 01/31/18 History Cholecalciferol [Vitamin D3] 2,000 unit PO DAILY 04/02/16 01/31/18 History Gabapentin [Neurontin] 300 mg PO BID 04/02/16 01/31/18 History Hydrochlorothiazide [Hydrodiuril] 25 mg PO DAILY 04/02/16 01/31/18 History Oxybutynin Chloride [Ditropan XL] 5 mg PO DAILY 04/02/16 01/31/18 History Theophylline 24 Hour [Mark-24] 300 mg PO DAILY PRN 04/02/16 01/31/18 History Tolterodine ER [Detrol LA] 4 mg PO DAILY 04/02/16 01/31/18 History rOPINIRole HCL [Requip] 0.5 mg PO HS 04/02/16 01/31/18 History Escitalopram [Lexapro] 20 mg PO DAILY 01/31/18 01/31/18 History Topiramate [Topamax] 50 mg PO DAILY 01/31/18 01/31/18 History Venlafaxine HCl ER [Effexor Xr] 37.5 mg PO DAILY 01/31/18 01/31/18 History Allergies Allergy/AdvReac Type Severity Reaction Status Date / Time iodine Allergy Rash/Hives, Verified 01/31/18 11:31 itching Physical Exam Vitals: Vital Signs Temp Pulse Pulse Resp BP BP Pulse Ox 02/01/18 03:40 97.4 F L 45 L 18 139/66 95 02/01/18 03:39 18 02/01/18 00:02 98 F 52 L 18 109/52 95 02/01/18 00:00 18 01/31/18 20:00 18 01/31/18 17:47 98.4 F 85 18 138/84 97 01/31/18 16:10 100.1 F H 61 18 153/72 98 01/31/18 13:28 52 L 20 130/61 98 01/31/18 12:34 77 18 119/65 95 01/31/18 12:00 60 18 132/68 96 01/31/18 11:43 58 L 18 137/64 97 01/31/18 10:57 98.6 F 76 18 157/79 95 Intake and Output 01/31/18 02/01/18 02/01/18 22:59 06:59 14:59 Intake Total 300 Balance 300 Intake: Oral 300 Other: # Voids 1 Weight 143.9 kg Blood pressure 160/81 heart rate 44 afebrile maintaining oxygen saturation on nasal cannula GENERAL: This is a 63-year-old female in no apparent distress at the time of my examination. Morbidly obese HEENT: Head is atraumatic, normocephalic. Pupils are equal, round. Sclerae anicteric. Conjunctivae are clear. Mucous membranes of the mouth are moist. Neck is supple. There is no jugular venous distention. No carotid bruit is heard. LUNGS: Clear to auscultation no wheezes, rales or rhonchi. No chest wall tenderness is noted on palpation or with deep breathing. HEART: Regular rate and rhythm with murmur at the left sternal border, no rubs or gallops. S1 and S2 heard. ABDOMEN: Soft, nontender. Bowel sounds are heard. No organomegaly noted. EXTREMITIES: 1+ bilateral lower extremity pitting edema with redness and no calf tenderness noted. VASCULAR: Radial and dorsalis pedis pulses palpated, no evidence of clubbing. NEUROLOGIC: Patient is awake, alert and oriented x3. Results 01/31/18 11:30 01/31/18 11:30 Cardiac Enzymes 01/31/18 01/31/18 01/31/18 Range/Units 11:30 11:30 16:58 AST 22 (14-36) U/L CK-MB (CK-2) 1.0 0.9 (0.0-2.4) ng/mL Troponin I <0.012 <0.012 (0.000-0.034) ng/mL 01/31/18 Range/Units 23:16 AST (14-36) U/L CK-MB (CK-2) 0.9 (0.0-2.4) ng/mL Troponin I <0.012 (0.000-0.034) ng/mL Coagulation 01/31/18 Range/Units 11:30 PT 10.1 (9.0-12.0) sec APTT 24.8 (22.0-30.0) sec Lipids 01/31/18 Range/Units 11:30 Triglycerides 102 (<150) mg/dL Cholesterol 179 (<200) mg/dL HDL Cholesterol 49 (40-60) mg/dL CBC 01/31/18 Range/Units 11:30 WBC 9.9 (3.8-10.6) k/uL RBC 4.73 (3.80-5.40) m/uL Hgb 13.9 (11.4-16.0) gm/dL Hct 41.3 (34.0-46.0) % Plt Count 338 (150-450) k/uL Comprehensive Metabolic Panel 01/31/18 Range/Units 11:30 Sodium 140 (137-145) mmol/L Potassium 3.6 (3.5-5.1) mmol/L Chloride 105 (98-107) mmol/L Carbon Dioxide 26 (22-30) mmol/L BUN 14 (7-17) mg/dL Creatinine 0.80 (0.52-1.04) mg/dL Glucose 104 H (74-99) mg/dL Calcium 9.4 (8.4-10.2) mg/dL AST 22 (14-36) U/L ALT 34 (9-52) U/L Alkaline Phosphatase 121 (38-126) U/L Total Protein 6.5 (6.3-8.2) g/dL Albumin 4.0 (3.5-5.0) g/dL Current Medications Generic Name Dose Route Start Last Admin Trade Name Freq PRN Reason Stop Dose Admin Hydrocodone Bitart/Acetaminophen 1 each 01/31/18 15:41 01/31/18 20:32 [place] 7.5-325 PO 1 each Q6HR PRN Administration Moderate Pain Aspirin 325 mg 02/01/18 09:00 Aspirin PO DAILY [facility] Atorvastatin Calcium 40 mg 01/31/18 17:30 01/31/18 18:36 Lipitor PO 40 mg W/SUPPER JED Administration Baclofen 10 mg 01/31/18 16:00 01/31/18 20:33 Lioresal PO 10 mg TID [facility] Administration Cholecalciferol 2,000 unit 02/01/18 09:00 Vitamin D3 PO DAILY [facility] Escitalopram Oxalate 20 mg 02/01/18 09:00 Lexapro PO DAILY JED Gabapentin 300 mg 01/31/18 21:00 01/31/18 20:32 Neurontin PO 300 mg BID JED Administration Sodium Chloride 1,000 mls @ 20 mls/hr 01/31/18 15:45 01/31/18 16:11 Saline 0.9% IV 20 mls/hr .Q24H JED Administration Lorazepam 1 mg 01/31/18 16:41 Ativan PO ONCE PRN 30 mins prior MRI Metoprolol Tartrate 50 mg 01/31/18 21:00 01/31/18 20:32 Lopressor PO 50 mg BID JED Administration Naproxen 500 mg 01/31/18 21:00 Naprosyn PO Q12HR PRN Moderate Pain Nitroglycerin 1 inch 01/31/18 18:00 02/01/18 04:32 Nitro-Bid Oint TOPICAL Not Given Q6HR [facility] Nitroglycerin 0.4 mg 01/31/18 15:36 Nitrostat SUBLINGUAL Q5M PRN Chest Pain Oxybutynin Chloride 5 mg 02/01/18 09:00 Ditropan Xl PO DAILY [facility] Pantoprazole Sodium 40 mg 01/31/18 17:30 01/31/18 18:36 Protonix PO 40 mg AC-BID JED Administration Ropinirole HCl 0.5 mg 01/31/18 21:00 01/31/18 20:32 Requip PO 0.5 mg HS JED Administration Tizanidine HCl 4 mg 01/31/18 21:00 01/31/18 20:32 Zanaflex PO 4 mg HS [facility] Administration Topiramate 50 mg 02/01/18 09:00 Topamax PO DAILY [facility] Venlafaxine HCl 37.5 mg 02/01/18 09:00 Effexor Xr PO DAILY [facility] Intake and Output 01/31/18 02/01/18 02/01/18 22:59 06:59 14:59 Intake Total 300 Balance 300 Intake: Oral 300 Other: # Voids 1 Weight 143.9 kg 01/31/18 11:30 01/31/18 11:30 Assessment and Plan Assessment: ASSESSMENT Chest pain, atypical with shortness of breath. An acute coronary event has been ruled out. Cardiac catheterization 2016 with no evidence of obstructive coronary artery disease. Febrile illness, 100.1F on admission Hypertension Dyslipidemia Bradycardia Obstructive sleep apnea PLAN An acute coronary event has been ruled out. Discontinue Nitropaste. Obtain 2-D echocardiogram and Doppler study to assess cardiac structure and function. Check proBNP level. Decrease Lopressor to 12.5 mg BID for bradycardia. Start lisinopril 5 mg daily. Further evaluation of possible pneumonic process with fever, shortness of breath and abnormal chest xray. Further recommendations to follow. Thank you kindly for this consultation. Nurse Practitioner note has been reviewed, I agree with a documented findings and plan of care. Patient was seen and examined.
[2018-02-01] MEDS: LISINOPRIL 5 MG TAB PO SCH (12:11)
--- NOTE | 2018-02-01 13:11 | ECHOF ---
Referral Reason:sob MEASUREMENTS -------- HEIGHT: 165.1 cm WEIGHT: 142.9 kg BP: IVSd: 1.0 cm (0.6 - 1.1) LVIDd: 4.5 cm (3.9 - 5.3) LVPWd: 1.3 cm (0.6 - 1.1) IVSs: 1.2 cm LVIDs: 2.4 cm LVPWs: 1.4 cm Ao Diam: 3.2 cm (2.0 - 3.7) AV Cusp: 2.0 cm (1.5 - 2.6) LA Diam: 3.5 cm (2.7 - 3.8) MV EXCURSION: 20.130 mm (> 18.000) MV EF SLOPE: 121 mm/s (70 - 150) EPSS: 1.3 cm MV E Obie: 0.88 m/s MV DecT: 171 ms MV A Obie: 0.75 m/s MV E/A Ratio: 1.18 RAP: 5.00 mmHg RVSP: 9.13 mmHg FINDINGS -------- Sinus rhythm. This was a technically difficult study with suboptimal views. The left ventricular size is normal. There is borderline concentric left ventricular hypertrophy. Overall left ventricular systolic function is normal with, an EF between 55 - 60 %. The right ventricle is normal in size and function. The left atrium is normal in size. The right atrium is normal in size. 5.0mg of Lumason was utilized for enhancement of images The aortic valve was not well visualized. The mitral valve was not well visualized. There is trace mitral regurgitation. The tricuspid valve was not well visualized. Trace tricuspid regurgitation present. The pulmonic valve was not well visualized. The aortic root size is normal. CONCLUSIONS -------- 1. Sinus rhythm. 2. This was a technically difficult study with suboptimal views. 3. The left ventricular size is normal. 4. There is borderline concentric left ventricular hypertrophy. 5. Overall left ventricular systolic function is normal with, an EF between 55 - 60 %. 6. The right ventricle is normal in size and function. 7. The left atrium is normal in size. 8. The right atrium is normal in size. 9. 5.0mg of Lumason was utilized for enhancement of images 10. The aortic valve was not well visualized. 11. The mitral valve was not well visualized. 12. There is trace mitral regurgitation. 13. The tricuspid valve was not well visualized. 14. Trace tricuspid regurgitation present. 15. The pulmonic valve was not well visualized. 16. The aortic root size is normal. COLD WORKING SUPERVISOR: Aminah Wallace RDCS
[2018-02-01] MEDS: METOPROLOL TARTRATE 50 MG TAB PO SCH (13:21)
[2018-02-01] MEDS ORDERED: LORazepam 1 MG TAB PO PRN (15:04)
[2018-02-01] MEDS ORDERED: LOPERAMIDE 2 MG CAP PO PRN (15:21)
--- NOTE | 2018-02-01 15:27 | P.PN ---
Subjective states that she is feeling "much better". Chest pain better. No CADET, abd pain or SOB currently. No leg or arm numbness. SHe has multiple non specific MSK and other often conflicting complaints and significant dose of anxiety over that, but definitely this AM reports to be feeling better and more confident. Objective - Vital Signs Vital signs: Vital Signs Temp 98.4 F 02/01/18 12:00 Pulse 75 02/01/18 12:00 Resp 18 02/01/18 12:00 BP 161/74 02/01/18 12:00 Pulse Ox 92 L 02/01/18 12:00 Intake & Output 01/31/18 02/01/18 02/01/18 18:59 06:59 18:59 Intake Total 300 1020 Balance 300 1020 Weight 143.9 kg Intake: Oral 300 1020 Other: # Voids 1 1 - Constitutional General appearance: Present: cooperative, no acute distress - EENT Eyes: Present: anicteric sclerae, EOMI, PERRLA - Neck Neck: Present: normal ROM. Absent: lymphadenopathy - Respiratory Respiratory: bilateral: CTA - Cardiovascular Rhythm: regular Heart sounds: normal: S1, S2 - Gastrointestinal General gastrointestinal: Present: normal bowel sounds, soft. Absent: organomegaly, tenderness - Integumentary Integumentary: Absent: cyanotic, rash - Neurologic Neurologic: Present: CNII-XII intact - Musculoskeletal Musculoskeletal: Present: strength equal bilaterally - Psychiatric Psychiatric: Present: A&O x's 3 - Labs CBC & Chem 7: 01/31/18 11:30 01/31/18 11:30 Labs: Abnormal Lab Results - Last 24 Hours (Table) 01/31/18 01/31/18 Range/Units 11:30 11:30 ESR 22 H (0-20) mm/hr LDL Cholesterol, Calc 110 H (0-99) mg/dL - Imaging and Cardiology CT scan - chest: report reviewed, image reviewed Assessment and Plan Plan: 1. Chest pain with atypical features cardiology following trop negative x 3 2. Arm and leg numbness history of cervical osteoarthritis and thoracic and cervical laminectomy MRI ordered no bladder/BM problems 3. Obesity TSH pending 4. Anxiety
--- NOTE | 2018-02-01 16:40 | MR ---
EXAMINATION TYPE: MR cervical spine wo/w con DATE OF EXAM: 02/01/2018 COMPARISON: None HISTORY: Neck pain, chet arm numbness, hx surgery TECHNIQUE: Multiplanar, multisequence images of the cervical spine were acquired utilizing 14 mL intravenous Nikhil avist gadolinium contrast. Diffusion weighted imaging was performed. There is a plate with screws fusing anteriorly the cervical spine from C3 to C6. There is metal artif act. At C6-7 there is small posterior disc herniation. There is some narrowing of the spinal canal at C6-7 with mild flattening of the cervical spinal cord. The canal measures 6.5 mm. There is no defini te cord edema. There is mild uniform narrowing of the spinal canal at the level of the fusion surgery to 8 mm. Precontrast images show no pathologic enhancement. There is no evidence of paraspinal mass. IMPRESSION: Multilevel anterior fusion surgery. Small posterior disc herniation at C6-7. Mild spinal stenosis at C6-7. No fracture seen.
[2018-02-01] MEDS: SODIUM CHLORIDE 0.9% 1,000 ML IV SCH (19:38)
[2018-02-01] MEDS ORDERED: METOPROLOL TARTRATE 12.5 MG TAB PO SCH (21:00)
[2018-02-01] MEDS: ATORVASTATIN 40 MG TAB PO SCH (21:32)
[2018-02-01] MEDS: tiZANidine 4 MG TAB PO SCH (21:32)
[2018-02-02] MEDS ORDERED: FUROSEMIDE 10 MG/ML 4 ML VIAL IV STA (06:47)
--- NOTE | 2018-02-02 07:13 | P.PN ---
Subjective Progress Note Date: 02/02/18 Principal diagnosis: Shortness of breath/bilateral lower extremities edema This is a pleasant 63-year-old female patient who sees Dr. TESHA Hammond in the office as an outpatient with a past medical history significant for obesity, hypertension, dyslipidemia, presented to the hospital complaining of chest discomfort and shortness of breath. The patient did undergo a heart catheterization 2 years ago and that revealed normal coronaries. This time the patient was ruled out for acute coronary event. On follow-up with her today, she stated that overall she is feeling better. She still have bilateral lower extremities edema but the shortness of breath is better. No chest pain or chest discomfort. No dizziness or lightheadedness. She did have fever when she presented to the hospital. She was bradycardic and yesterday we did decrease the dose of metoprolol but I am going to DC the metoprolol completely because she continues to be bradycardic during the night with heart rate in the 30s. We did add lisinopril to control the blood pressure and the blood pressure seems to be better. Objective - Vital Signs Vital signs: Vital Signs Temp 97.5 F L 02/02/18 04:00 Pulse 69 02/02/18 04:00 Resp 18 02/02/18 04:00 BP 115/70 02/02/18 04:00 Pulse Ox 90 L 02/02/18 04:00 Intake & Output 02/01/18 02/02/18 02/02/18 18:59 06:59 18:59 Intake Total 1260 Balance 1260 Intake: Oral 1260 Other: Voiding Method Toilet # Voids 1 1 - Constitutional General appearance: Present: no acute distress - Respiratory Respiratory: bilateral: diminished - Cardiovascular Rhythm: regular Heart sounds: normal: S1, S2 - Labs CBC & Chem 7: 01/31/18 11:30 01/31/18 11:30 Assessment and Plan Assessment: Assessment #1 shortness of breath which has improved #2 bilateral lower extremities edema #3 sinus bradycardia #4 hypertension #5 dyslipidemia #6 obesity Plan #1 the patient did have a heart cath 2 years ago showed normal coronaries #2 this admission she was ruled out for acute coronary event #3 I will DC the metoprolol in view of the bradycardia #4 continue the lisinopril #5 I would give the patient one dose of IV Lasix for the edema in the lower extremities and she might need to have Lasix by mouth as an outpatient #6 hospital discharge home later on today
[2018-02-02 07:54] VITALS: RESP 16
[2018-02-02] MEDS: TOPIRAMATE 25 MG TAB PO SCH (08:08)
[2018-02-02] MEDS: PANTOPRAZOLE 40 MG TABLET PO SCH (08:08)
[2018-02-02] MEDS: GABAPENTIN 300 MG CAP PO SCH (08:08)
[2018-02-02] MEDS: ESCITALOPRAM 20 MG TAB PO SCH (08:08)
[2018-02-02] MEDS: OXYBUTYNIN XL 5 MG TAB.ER.24 PO SCH (08:08)
[2018-02-02] MEDS: LISINOPRIL 5 MG TAB PO SCH (08:08)
[2018-02-02] MEDS: CHOLECALCIFEROL 1,000 UNIT TAB PO SCH (08:08)
[2018-02-02] MEDS: VENLAFAXINE HCL ER 37.5 MG CAP PO SCH (08:08)
[2018-02-02] MEDS: BACLOFEN 10 MG TAB PO SCH (08:08)
[2018-02-02] MEDS ORDERED: ASPIRIN 81 MG PO SCH (09:00)
--- NOTE | 2018-02-02 10:14 | P.DS ---
Providers Date of admission: 01/31/18 15:42 Attending physician: Sheron Leung DO Consults: 01/31/18 15:36 Consult Physician Urgent Consulting Provider: Immanuel Ledezma Reason/Comments: Chest pain Do you want consulting provider notified?: Yes Primary care physician: [facility] Course: Admission diagnosis: 1. Chest pain 2. Hypertension 3. Chronic neck pain next. 4. Cerebral palsy Discharge diagnosis: 1. non anginal chest pain 2. Hypertension 3. Leg swelling 4. Cervical spondylosis 5. Sinus bradycardia Consultants on this admission: Cardiology Procedure done on this admission: None Pertinent studies and labs on this admission: Echocardiogram that showed EF of 55%, mild LVH, no valvular abnormalities CT chest: No pulmonary embolism, no infiltrates, no masses or pleural effusions , couple of strandy atelectasis in the lower lungs MRI cervical spine: Previous laminectomy and fusion. Mild disc herniation C6- C7 with very mild spinal cause stenosis and without compromise of spinal cord. Patient was not able to proceed with thoracic MRI due to the large body habitus. Medication changes: Metoprolol was discontinued and instead of it lisinopril 5 mg daily was started Hydrochlorothiazide was discontinued and instead of it Lasix 20 mg every other day was started Reason For admission: This is a 63-year-old female with multiple medical problems, who presented to emergency department complaining of chest pain. She described chest pain as constant with occasional worsening for 3 days progressively getting worse. No particular provoking factors reviewed no particular alleviating or aggravating factors. She try [place] for the pain without significant improvement. Pain was not connected with deep breaths cough or body position. She also felt some shortness of breath. There was no coughing or expectoration. She does have some chronic leg swelling that was not worsened. Initial workup included EKG that was unchanged from before, serial troponin that was negative, chest exam CTA with the above results and CBC and routine labs were otherwise unremarkable. Hospital course: Patient was admitted under observation. Cardiology was consulted. They valid to the patient felt that her pain is not anginal. She did have cardiac catheterization 2 years ago without any significant coronary artery disease. She had multiple stress tests in the past that were negative. They felt that she might have some leg swelling and some increase in fluid volume divided contributing to her symptoms hence she was given Lasix. Otherwise since she mentioned that occasionally she would have some nonspecific numbness in both arms and both legs without any specific distribution and without any motor weakness MRI of the cervical spine was done with above results. On the day of discharge I saw and evaluated the patient. She stated that she is doing much better and then her chest pain has resolved. She was ambulating in the room and went to the bathroom on her own and took a shower. Is no any shortness of breath. She felt that she may be wheezy but no wheeziness was found on exam. Physical examination her vital signs were stable, head and neck examination was unremarkable, lungs she has diminished breath sounds which was unchanged from before likely due to large body habitus but there were no wheezing, rhonchi or crackles. Cardiovascular examination showed a regular rhythm and rate S1-S2 no significant murmurs rubs or gallops. Abdomen was obese soft nontender nondistended. Extremities showed trace pedal edema and some skin hyperpigmentation without any asymmetry in the size of both legs and no warmth or tenderness of the cough. Cardiology cleared the patient for discharge and recommended patient to be discharged on lisinopril instead of metoprolol due to bradycardia. Also they recommended switching to Lasix from hydrochlorothiazide. Patient was given prescription for lisinopril. She was also given prescription for Lasix 10 mg every other day. She is instructed to follow-up with primary care physician and obtain BMP in 7 days she will follow-up with her extracorporeal technician in 2 weeks Patient Condition at Discharge: Good Plan - Discharge Summary Discharge Rx Participant: No New Discharge Prescriptions: New Furosemide [Lasix] 20 mg PO DIRECTED #10 tablet Lisinopril [Zestril] 5 mg PO DAILY #10 tab Continue Pantoprazole Sodium [Protonix] 40 mg PO BID Hydrocodone/Acetaminophen [Lortab 7.5-325 mg Tablet] 1 each PO Q6HR PRN PRN Reason: Pain Baclofen 10 mg PO TID tiZANidine [Zanaflex] 4 mg PO HS rOPINIRole HCL [Requip] 0.5 mg PO HS Oxybutynin Chloride [Ditropan XL] 5 mg PO DAILY Gabapentin [Neurontin] 300 mg PO BID Atorvastatin [Lipitor] 40 mg PO W/SUPPER Aspirin [Adult Low Dose Aspirin EC] 81 mg PO HS Cholecalciferol [Vitamin D3] 2,000 unit PO DAILY Topiramate [Topamax] 50 mg PO DAILY Escitalopram [Lexapro] 20 mg PO DAILY Venlafaxine HCl ER [Effexor XR] 37.5 mg PO DAILY Discontinued Naproxen 500 mg PO Q12HR Tolterodine ER [Detrol LA] 4 mg PO DAILY Theophylline 24 Hour [Mark-24] 300 mg PO DAILY PRN PRN Reason: asthma Metoprolol Tartrate [Lopressor] 50 mg PO BID Hydrochlorothiazide [Hydrodiuril] 25 mg PO DAILY Discharge Medication List Baclofen 10 mg PO TID 01/03/15 [History] Hydrocodone/Acetaminophen [Lortab 7.5-325 mg Tablet] 1 each PO Q6HR PRN [History] Pantoprazole Sodium [Protonix] 40 mg PO BID 01/03/15 [History] tiZANidine [Zanaflex] 4 mg PO HS 01/03/15 [History] Aspirin [Adult Low Dose Aspirin EC] 81 mg PO HS 04/02/16 [History] Atorvastatin [Lipitor] 40 mg PO W/SUPPER 04/02/16 [History] Cholecalciferol [Vitamin D3] 2,000 unit PO DAILY 04/02/16 [History] Gabapentin [Neurontin] 300 mg PO BID 04/02/16 [History] Oxybutynin Chloride [Ditropan XL] 5 mg PO DAILY 04/02/16 [History] rOPINIRole HCL [Requip] 0.5 mg PO HS 04/02/16 [History] Escitalopram [Lexapro] 20 mg PO DAILY 01/31/18 [History] Topiramate [Topamax] 50 mg PO DAILY 01/31/18 [History] Venlafaxine HCl ER [Effexor XR] 37.5 mg PO DAILY 01/31/18 [History] Furosemide [Lasix] 20 mg PO DIRECTED #10 tablet 02/02/18 [Rx] Lisinopril [Zestril] 5 mg PO DAILY #10 tab 02/02/18 [Rx] Activity/Diet/Wound Care/Special Instructions: resume usual activity Follow up with PCP Heart healthy diet due to new medications check BMP in 7 days Discharge Disposition: HOME SELF-CARE
[2018-02-02 11:40] VITALS: BP 125/73; PULSE 52; TEMP 97.3
[2018-02-03] MEDS ORDERED: FUROSEMIDE 40 MG TAB PO SCH (09:00)
== END 2018-02-02 13:53 | disposition home or self-care (01) ==
LOC: EC 10:53 → 3OBS 15:42
PROVIDERS: ADMIT Internal Medicine; ATTEND Internal Medicine
DX: R07.89 Other chest pain (principal); R06.02 Shortness of breath; R60.0 Localized edema; R00.1 Bradycardia, unspecified; R50.9 Fever, unspecified; I10 Essential (primary) hypertension; M47.812 Spondylosis without myelopathy or radiculopathy, cervical region; G80.9 Cerebral palsy, unspecified; I83.90 Asymptomatic varicose veins of unspecified lower extremity; G43.909 Migraine, unspecified, not intractable, without status migrainosus; M79.7 Fibromyalgia; K21.9 Gastro-esophageal reflux disease without esophagitis; J45.909 Unspecified asthma, uncomplicated; G47.33 Obstructive sleep apnea (adult) (pediatric); E78.5 Hyperlipidemia, unspecified; J98.11 Atelectasis; M19.90 Unspecified osteoarthritis, unspecified site; F40.240 Claustrophobia; F32.9 Major depressive disorder, single episode, unspecified; F41.9 Anxiety disorder, unspecified; E66.01 Morbid (severe) obesity due to excess calories; Z68.43 Body mass index [BMI] 50.0-59.9, adult; G89.29 Other chronic pain; M54.2 Cervicalgia; R20.0 Anesthesia of skin; Z79.1 Long term (current) use of non-steroidal anti-inflammatories (NSAID); Z79.82 Long term (current) use of aspirin; Z79.899 Other long term (current) drug therapy; Z91.048 Other nonmedicinal substance allergy status; Z90.49 Acquired absence of other specified parts of digestive tract; Z99.89 Dependence on other enabling machines and devices; Z98.1 Arthrodesis status; Z90.710 Acquired absence of both cervix and uterus; Z98.42 Cataract extraction status, left eye; Z98.41 Cataract extraction status, right eye; Z85.42 Personal history of malignant neoplasm of other parts of uterus; Z87.01 Personal history of pneumonia (recurrent); Z82.0 Family history of epilepsy and other diseases of the nervous system; Z82.61 Family history of arthritis; Z82.49 Family history of ischemic heart disease and other diseases of the circulatory system
CPT/HCPCS: 96375 ×5; 96376 ×2; 96365 ×2; 99285 ×2; 36415; 93005; 85379; 83880; 80061; 80053; 85652; 82150; 82550; 82553; 83690; 83735; 84443; 84484; 85025; 85610; 85730; 71046; 71275; 72156; G0378 ×3; C8929; J1200; J1644 ×2; J1940; J2930; A9581; Q9967; 93306

== ENCOUNTER → 2018-09-11 | Outpatient (CLI) | payer MEDICARE, BC ==
--- NOTE | 2018-09-11 14:15 | XR ---
EXAMINATION TYPE: XR chest 2V DATE OF EXAM: 09/11/2018 COMPARISON: Prior chest x-ray 08/25/2018 HISTORY: Pneumonia TECHNIQUE: Frontal and lateral views of the chest are obtained. FINDINGS: Bandlike area of increased attenuation present at the right lung base, I question some bron chial wall thickening present at the posterior lung bases. There is no focal air space opacity, pleur al effusion, or pneumothorax seen. The cardiac silhouette size is within normal limits. Prominence i n the region of the ascending aorta could be technical. The osseous structures are intact. IMPRESSION: Possible residual atelectasis or scarring. Correlate for bronchitis, reactive airways di sease Additional findings above.
--- NOTE | 2018-09-11 14:21 | XR ---
Left RIBS HISTORY: Left rib strain 4 views of the left ribs Bone mineralization is maintained. There is no evident displaced rib fracture. There is a spinal curv ature noted. IMPRESSION: No displaced fracture. Bone scan could be performed for increased sensitivity as indicate d
== END | disposition home or self-care (01) ==
LOC: RADXRMAIN 12:17
PROVIDERS: ATTEND Family Medicine
DX: J18.9 Pneumonia, unspecified organism (principal); R52 Pain, unspecified
CPT/HCPCS: 71046

== ENCOUNTER → 2019-01-08 | Outpatient (CLI) | payer MEDICARE, BC ==
--- NOTE | 2019-01-08 15:24 | US ---
LOWER EXTREMITY VENOUS INSUFFICIENCY SIDE PERFORMED: Bilateral 1) Color flow is present and patency is documented in the following vessels. No DVT or SVT is noted . EIV Common Femoral Vein Deep Femoral Vein Femoral Vein Popliteal Vein Proximal Calf Veins Greater Saph Vein Upper Small Saph Vein 2) There is venous reflux noted at the following venous levels: None 3) Incompetent perforators are noted at these levels: None IMPRESSION: No diagnostic evidence of venous insufficiency.
== END | disposition home or self-care (01) ==
LOC: RADUSWWP 14:15
PROVIDERS: ATTEND Internal Medicine Interventional Cardiology
DX: I87.2 Venous insufficiency (chronic) (peripheral) (principal); R60.0 Localized edema
CPT/HCPCS: 93970

== ENCOUNTER → 2019-02-20 | Outpatient (CLI) | payer OTHER | END | disposition home or self-care (01) | LOC: RADUSWWP 13:04 | PROVIDERS: ATTEND Internal Medicine Interventional Cardiology | DX: Z53.9 Procedure and treatment not carried out, unspecified reason (principal) ==

== ENCOUNTER → 2019-02-20 | Outpatient (CLI) | payer MEDICARE, BC ==
--- NOTE | 2019-02-20 14:27 | CT ---
EXAMINATION TYPE: CT abdomen pelvis w con DATE OF EXAM: 02/20/2019 HISTORY: LLQ pain. CT DLP: 3341.7mGycm Automated Exposure Control for Dose Reduction was Utilized. CONTRAST: CT scan of the abdomen and pelvis is performed with IV Contrast, patient injected with 100 mL of Isov ue 300. COMPARISON: CT abdomen and pelvis November 07, 2017 FINDINGS: LUNG BASES: No significant abnormality is appreciated. LIVER/GB: Cholecystectomy clips are redemonstrated. Liver remains heterogeneously hypodense suggestin g diffuse fatty infiltration. PANCREAS: No significant abnormality is seen. SPLEEN: No significant abnormality is seen. ADRENALS: No significant abnormality is seen. KIDNEYS: Subcentimeter low dense lesions scattered throughout both kidneys are too small to further c haracterize but presumably benign, no significant change from prior. They are more numerous in the ri ght kidney versus left kidney. Symmetric cortical medullary uptake and excretion from both kidneys wi thout hydronephrosis seen bilaterally. BOWEL: Oral contrast reaches level of distal transverse colon. No suspicious small or large bowel dil atation. Terminal ilium felt within normal limits axial image 54. There is stable soft tissue nodule near cecum axial image 52 measuring 1.5 x 1.2 cm unchanged from prior study. This could reflect resid ual right ovary and high position or stable slightly enlarged lymph node. Appendix not visualized sim ilar to prior. No inflammatory change at base of cecum is seen. Occasional diverticula in the sigmoid colon without CT evidence for acute diverticulitis. UTERUS/ADNEXA: Uterus surgically absent. Scattered pelvic phleboliths redemonstrated. LYMPH NODES: No greater than 1cm new abdominal or pelvic lymph nodes are appreciated. OSSEOUS STRUCTURES: Multilevel facet arthropathy in the mid to lower lumbar spine. Prominent spurring and disc space narrowing in the upper lumbar spine is prominent T12-L1 and L1-L2 levels. Moderate na rrowing of both hip joints. OTHER: No significant additional abnormality is seen. IMPRESSION: No significant new or acute finding is seen to account for patient's clinical symptoms of left lower quadrant pain.
== END | disposition home or self-care (01) ==
LOC: RADCTMAIN 13:43
PROVIDERS: ATTEND Family Medicine
DX: R10.32 Left lower quadrant pain (principal)
CPT/HCPCS: 74177; Q9967

== ENCOUNTER → 2019-12-21 | Outpatient (CLI) | payer MEDICARE, BC ==
--- NOTE | 2019-12-21 15:52 | US ---
EXAMINATION TYPE: US carotid duplex BILAT DATE OF EXAM: 12/21/2019 COMPARISON: NONE CLINICAL HISTORY: R20.2 numbness. weakness EXAM MEASUREMENTS: RIGHT: Peak Systolic Velocity (PSV) cm/sec ----- Right CCA: 98.2 ----- Right ICA: 140 ----- Right ECA: 89.4 ICA/CCA ratio: 1.4 RIGHT: End Diastole cm/sec ----- Right CCA: 20.5 ----- Right ICA: 13.2 ----- Right ECA: 24.9 LEFT: Peak Systolic Velocity (PSV) cm/sec ----- Left CCA: 86.4 ----- Left ICA: 146 ----- Left ECA: 119 ICA/CCA ratio: 1.2 LEFT: End Diastole cm/sec ----- Left CCA: 12.3 ----- Left ICA: 44.2 ----- Left ECA: 0.0 VERTEBRALS (direction of flow): Right Vertebral: Antegrade Left Vertebral: Antegrade Rhythm: Arrhythmia Mild amount of plaque visualized in bilateral bulbs. Elevated velocities in right and left ICA IMPRESSION: 1. Elevated velocities within the internal carotid arteries bilaterally compatible with 50-69% narrow ing. Correlate with the patient's symptoms. 2. Incidental note is made of a 1.3 cm solid thyroid nodule on the left. If further evaluated with th yroid ultrasound. Criteria for Assigning % of Stenosis / Diameter reduction (Estimation based on the indirect measurements of the internal carotid artery velocities (ICA PSV). 1. Normal (no stenosis)=ICA PSV < 125 cm/s: ratio < 2.0: ICA EDV<40 cm/s. 2. Less than 50% stenosis=ICA PSV < 125 cm/s: ratio < 2.0: ICA EDV<40 cm/s. 3. 50 to 69% stenosis=ICA PSV of 125 to 230 cm/s: ration 2.0 ? 4.0: ICA EDV 40-100 cm/s. 4. Greater than 70% stenosis to near occlusion= ICA PSV > 230 cm/s: ratio > 4.0: ICA EDV > 100 cm/s. 5. Near occlusion= ICA PSV velocities may be low or undetectable: variable ratio and ICA EDV. 6. Total occlusion=unable to detect flow.
== END | disposition home or self-care (01) ==
LOC: RADUSWWP 12:32
PROVIDERS: ATTEND Family Medicine
DX: I65.23 Occlusion and stenosis of bilateral carotid arteries (principal)
CPT/HCPCS: 93880

== ENCOUNTER → 2020-01-10 | Outpatient (CLI) | payer MEDICARE, BC ==
--- NOTE | 2020-01-10 15:09 | US ---
EXAMINATION TYPE: US thyroid st tissue head/neck DATE OF EXAM: 01/10/2020 COMPARISON: NONE CLINICAL HISTORY: E04.1 Thyroid Nodule. Thyroid nodules GLAND SIZE: Right Lobe: 3.8 x 1.5 x 1.5 cm Overall Parenchyma: homogenous Left Lobe: 4.4 x 1.7 x 1.8 cm Overall Parenchyma: homogeneous Isthmus Thickness: .3 cm NODULES RIGHT: # of nodules measured on right: 0 LEFT: # of nodules measured on left: 1 1. 1.8 x 1.0 x 1.3 cm solid nodule at the mid pole with well-defined margins; . This nodule is wide r than tall and shows intranodular vascularity. Prior size: No previous ISTHMUS: # of nodules measured in the isthmus: 0 Bilateral neck scanned, no evidence of lymphadenopathy. IMPRESSION: Solid nodule within the left lobe of the thyroid is amenable to fine-needle aspiration
== END | disposition home or self-care (01) ==
LOC: RADUSWWP 13:43
PROVIDERS: ATTEND Family Medicine
DX: R22.0 Localized swelling, mass and lump, head (principal); E04.1 Nontoxic single thyroid nodule
CPT/HCPCS: 76536

== ENCOUNTER → 2020-02-28 | Outpatient (CLI) | payer MEDICARE, BC ==
[2020-02-28 19:10] LABS: T4, Free (Free Thyroxine) 1.2 ng/dL (0.80-1.80)
== END | disposition home or self-care (01) ==
LOC: LABWHC1 10:47
PROVIDERS: ATTEND Internal Medicine Endocrinology, Diabetes & Metabolism
DX: E04.1 Nontoxic single thyroid nodule (principal)
CPT/HCPCS: 36415; 84439; 84443

== ENCOUNTER 2020-03-06 12:31 | Day surgery (SDC) | payer MEDICARE, BC ==
[2020-03-06] MEDS ORDERED: ALPRAZolam 0.5 MG TAB PO STA (13:09)
[2020-03-06 13:15] VITALS: RESP 16; TEMP 98.3
--- NOTE | 2020-03-06 14:25 | US ---
ULTRASOUND GUIDED FNA THYROID BIOPSY: CLINICAL HISTORY: Request for left thyroid nodule FNA FINDINGS: The procedure was explained to the patient. The risks, complications, benefits and alternatives were discussed and any questions were answered. Informed consent was obtained. Patient was placed supin e on the ultrasound table and prepped and draped in the usual sterile fashion. Utilizing a 25 gauge needle, five passes were made into the requested left thyroid nodule. Patient was stable throughout the procedure. Pathology is pending. All elements of maximal barrier technique were utilized. IMPRESSION: 1. Successful ultrasound guided FNA thyroid biopsy.
[2020-03-06 14:41] VITALS: BP 134/75; PULSE 68
== END 2020-03-06 14:35 | disposition home or self-care (01) ==
LOC: RADPROMAIN 12:31
PROVIDERS: ATTEND Internal Medicine Endocrinology, Diabetes & Metabolism
DX: E04.1 Nontoxic single thyroid nodule (principal)
CPT/HCPCS: 10005; 88173; 88305

== ENCOUNTER → 2020-04-01 | Outpatient (CLI) | payer MEDICARE, BC ==
--- NOTE | 2020-04-02 19:01 | ECHOF ---
Referral Reason:I50.9 Heart failure, unspecified MEASUREMENTS -------- HEIGHT: 165.1 cm WEIGHT: 142.9 kg BP: RVIDd: 4.7 cm (< 3.3) IVSd: 1.6 cm (0.6 - 1.1) LVIDd: 4.8 cm (3.9 - 5.3) LVPWd: 1.6 cm (0.6 - 1.1) IVSs: 1.6 cm LVIDs: 3.0 cm LVPWs: 1.8 cm LAESV Index (A-L): 29.91 ml/m Ao Diam: 2.2 cm (2.0 - 3.7) AV Cusp: 1.5 cm (1.5 - 2.6) MV E Obie: 0.97 m/s MV DecT: 183 ms MV A Obie: 0.87 m/s MV E/A Ratio: 1.11 RAP: 5.00 mmHg RVSP: 27.00 mmHg FINDINGS -------- This was a technically difficult study with suboptimal views. The left ventricular size is normal. There is moderate concentric left ventricular hypertrophy. O verall left ventricular systolic function is normal with, an EF between 55 - 60 %. The right ventricle is moderate to severely enlarged. LA is midly dilated 29-33ml/m2. The right atrium was not well visualized. 5.0mg of Lumason was utilized for enhancement of images Interatrial and interventricular septum intact. The aortic valve was not well visualized. There is no evidence of aortic regurgitation. There is no evidence of aortic stenosis. The mitral valve was not well visualized. The tricuspid valve was not well visualized. Mild tricuspid regurgitation present. There is no ev idence of pulmonary hypertension. The right ventricular systolic pressure, as measured by Doppler, is 27.00mmHg. The pulmonic valve was not well visualized. The aortic root size is normal. IVC Not well visulized. There is no pericardial effusion. CONCLUSIONS -------- 1. The left ventricular size is normal. 2. There is moderate concentric left ventricular hypertrophy. 3. Overall left ventricular systolic function is normal with, an EF between 55 - 60 %. 4. The right ventricle is moderate to severely enlarged. 5. LA is midly dilated 29-33ml/m2. 6. Mild tricuspid regurgitation present. FIRE ENGINEER: Alysa Pelletier RDCS
== END | disposition home or self-care (01) ==
LOC: RADECHMAIN 11:32
PROVIDERS: ATTEND Internal Medicine
DX: I07.1 Rheumatic tricuspid insufficiency (principal)
CPT/HCPCS: C8929; Q9950; 93306

== ENCOUNTER 2020-06-25 11:08 | Emergency (ER) | payer MEDICARE, BC ==
[2020-06-25 11:16] VITALS: RESP 18; TEMP 98.4
[2020-06-25] MEDS ORDERED: MORPHINE SULFATE 4 MG/ML SYRINGE IM STA (11:32)
--- NOTE | 2020-06-25 11:35 | ED ---
General Adult HPI - General Chief complaint: Fall Stated complaint: Fall Time Seen by Provider: 06/25/20 11:18 Source: patient Mode of arrival: ambulatory Limitations: no limitations - History of Present Illness Initial comments: Dictation was produced using [employer] dictation software. please excuse any grammatical, word or spelling errors. This patient was cared for during a federal and state declared state of emergency secondary to Covid 19 Chief Complaint: 65-year-old female presents with head pain, neck pain, back pain and ankle pain History of Present Illness: 65-year-old obese female she resents today with pain of her head neck back and left ankle. Patient states 7 days ago she fell. She slipped on slippery surface falling backwards. That she did decide to come until today because her symptoms haven't really been improving. She wanted to be evaluated for traumatic injuries. She has history of chronic left lower e xtremity lymphedema. She states that her pain is worse with palpation and movement. Denies any numbness tingling or paresthesias to the arms or legs. She states the pain is to her lower thoracic spine. Patient has been ambulating over the last 7 days. The ROS documented in this emergency department record has been reviewed and confirmed by me. Those systems with pertinent positive or negative responses have been documented in the HPI. All other systems are other negative and/or noncontributory. PHYSICAL EXAM: General Impression: Alert and oriented x3, not in acute distress HEENT: Normocephalic atraumatic, extra-ocular movements intact, pupils equal and reactive to light bilaterally, mucous membranes moist. Cardiovascular: Heart regular rate and rhythm Chest: Able to complete full sentences, no retractions, no tachypnea Abdomen: abdomen soft, non-tender, non-distended, no organomegaly Musculoskeletal: Pulses present and equal in all extremities, no peripheral edema, tenderness to the lower thoracic spinal area Left ankle: Ecchymoses around the heel, pain with movement and palpation Motor: no focal deficits noted Neurological: CN II-XII grossly intact, no focal motor or sensory deficits noted Skin: Intact with no visualized rashes Psych: Normal affect and mood ED course: 65-year-old female presents with head neck back left ankle pain after fall several days ago. Vital signs upon arrival are within acceptable limits. Computed tomography scan of the head and C-spine was obtained showing no acute processes. X-ray tib-fib x-ray shows fracture of the distal aspect of the left tibia. Spine x-ray shows no acute fractures. Computed tomography scan of the left lower extremity shows fracture of the posterior tibia, distal fibula and medial metaphyseal tibia. Concerning for trimalleolar fracture. Case is discussed with neck branch reviewed the films. They requested that patient be discharged with posterior splint follow-up in the office. They did request a dedicated ankle x-ray to evaluate the mortise joint. Patient placed in a short posterior mold splint. Patient will be discharged with analgesics. She is told to remain nonweightbearing of the left lower extremity. She is given outpatient follow-up with Dr. Martin. - Related Data Home Medications Medication Instructions Recorded Confirmed Pantoprazole Sodium [Protonix] 40 mg PO BID 01/03/15 06/25/20 Cholecalciferol [Vitamin D3 (25 3,000 unit PO BID 04/02/16 06/25/20 Mcg = 1000 Iu)] Gabapentin [Neurontin] 300 mg PO TID 04/02/16 06/25/20 Naproxen [Naprosyn] 500 mg PO Q12HR 07/05/18 06/25/20 Atorvastatin [Lipitor] 80 mg PO DAILY 06/25/20 06/25/20 Citalopram Hydrobromide 10 mg PO DAILY 06/25/20 06/25/20 [Citalopram HBr] lisinopriL 20 mg PO DAILY 06/25/20 06/25/20 Previous Rx's Medication Instructions Recorded HYDROcodone/APAP 5-325MG [Oscar 1 tab PO Q6HR PRN 3 Days #12 tab 06/25/20 5-325] Allergies Allergy/AdvReac Type Severity Reaction Status Date / Time iodine Allergy Rash/Hives, Verified 06/25/20 13:11 itching latex Allergy "redness" Verified 06/25/20 13:11 Review of Systems ROS Statement: Those systems with pertinent positive or pertinent negative responses have been documented in the HPI. ROS Other: All systems not noted in ROS Statement are negative. 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 Rt breast lumpectomy - negative for cancer per pt. migraines, irregular heartbeat, varicose veins, poor circulation- swelling lower legs and feet, cerebral palsy-uses cane, occipital neuralgia, optic neuritis, veneers front teeth, cardiac stress test, uses cpap, cerebral palsy. History of Any Multi-Drug Resistant Organisms: None Reported Past Surgical History: Cholecystectomy, Heart Catheterization, Hysterectomy, Tonsillectomy Additional Past Surgical History / Comment(s): Carlos cataract, benign carotid tumor- removed,cervical discectomy with fusion, R breast lumpectomy neg CA, cox neuromas carlos feet, steroid injections into carlos shoulders,rt hip ,cervical spine last inject 05/14 Past Anesthesia/Blood Transfusion Reactions: Previous Problems w/ Anesthesia, Motion Sickness, Postoperative Nausea & Vomiting (PONV) Additional Past Anesthesia/Blood Transfusion Reaction / Comment(s): diff coming out of anesthesia Past Psychological History: Anxiety, Depression Smoking Status: Never smoker Past Alcohol Use History: None Reported Past Drug Use History: None Reported - Past Family History Mother Family Medical History: Hypertension, Osteoarthritis (OA) Additional Family Medical History / Comment(s): neuropathy, carpal tunnel Father Family Medical History: Hypertension General Exam Limitations: no limitations Course Vital Signs 06/25/20 06/25/20 11:10 13:48 Temperature 98.4 F Pulse Rate 64 54 L Respiratory 18 18 Rate Blood Pressure 160/86 154/71 O2 Sat by Pulse 96 98 Oximetry Medical Decision Making - Lab Data Lab Results 06/25/20 Range/Units 14:01 Urine Color Yellow Urine Appearance Clear (Clear) Urine pH 5.5 (5.0-8.0) Ur Specific [place] 1.025 (1.001-1.035) Urine Protein Negative (Negative) Urine Glucose (UA) Negative (Negative) Urine Ketones Negative (Negative) Urine Blood Negative (Negative) Urine Nitrite Negative (Negative) Urine Bilirubin Negative (Negative) Urine Urobilinogen <2.0 (<2.0) mg/dL Ur Leukocyte Esterase Negative (Negative) Disposition Clinical Impression: Ankle fracture Disposition: HOME SELF-CARE Condition: Fair Instructions (If sedation given, give patient instructions): Ankle Fracture (ED) Prescriptions: HYDROcodone/APAP 5-325MG [Oscar 5-325] 1 tab PO Q6HR PRN 3 Days #12 tab PRN Reason: Severe Pain Is patient prescribed a controlled substance at d/c from ED?: Yes If prescribed controlled substance>3 days was MAPS reviewed?: Prescribed <3 Days Referrals: Brandt Martin DO [Doctor of Osteopathic Medicine] - 1-2 days Time of Disposition: 15:31
--- NOTE | 2020-06-25 13:01 | CT ---
EXAMINATION TYPE: CT brain xavier wo con DATE OF EXAM: 06/25/2020 COMPARISON: None HISTORY: 65-year-old female fall today, back and foot pain CT DLP: 1797.3 mGycm Automated exposure control for dose reduction was used. Technique: Examination of the head was done in axial plane without intravenous contrast. Coronal and sagittal reconstructions performed. CT of the cervical spine was obtained in axial plane without intravenous injection of contrast mater ial. Coronal and sagittal reformatted images were obtained from the axial views for evaluation of f ractures, spinal alignment and canal. FINDINGS: Head: There is no evidence of acute intracranial hemorrhage, acute ischemic changes, mass, mass-effect, or extra-axial fluid collection. There is no effacement of cerebral sulci or basal subarachnoid cister ns. There is no hydrocephalus. There is no midline shift. Lemons-white matter distinction is preserv ed. Paranasal sinuses and mastoid air cells are well pneumatized. Visualized orbits and globes are intact . Cervical spine: No craniocervical junction optimally, predental space widening, or prevertebral soft tissue swelling. Degenerative changes of the C1 dens articulation. Status post C3-C6 ACDF. Advanced degenerative disc disease both above and below the fusion at C2-C3 a nd C6-C7. Disc osteophyte complex at C6/C7 may contribute to a moderate spinal canal stenosis though assessment is limited due to the metal artifact and large patient body habitus. Trace grade 1 anterolisthesis below the fusion at C6-C7. Facet arthropathy. No acute fracture identified. Some type of surgical material is present in the region of the right ca rotid bifurcation. Sagittal and coronal reformatted images confirm above findings. COMBINED IMPRESSION: 1. No acute intracranial abnormality seen. 2. No acute fracture of the cervical spine. Status post C3-C6 ACDF. Advanced spondylotic changes both above and below the fusion at C2-C3 and C6-C7. Possible underlying moderate spinal canal narrowing a t C6/C7 with grade 1 anterolisthesis. 3. Densities at the right carotid bifurcation relating to prior surgical material. Clinically correla te.
--- NOTE | 2020-06-25 13:17 | XR ---
Left leg, left foot Frontal and lateral views of the left leg, 3 views the left foot submitted, no comparisons HISTORY: Trauma 8 days prior, pain Lucencies present in the soft tissues of the left leg. There is some arthropathy in the left knee. Wally ne mineralization, alignment are maintained. Posterior to the distal leg there is some bandlike areas of increased density within the soft tissues. Plantar calcaneal spur is noted incidentally. At the p osterior aspect of the distal tibia there is a cortical disruption suggestive of minimally displaced fracture. There is soft tissue swelling. Digits are flexed. No dislocation. IMPRESSION: Findings suggestive of fracture of the distal aspect of the left tibia posteriorly. There may be myositis ossificans in the soft tissues, correlate for cellulitis, edema. Plantar calcaneal s pur.
--- NOTE | 2020-06-25 13:26 | XR ---
Frontal and lateral spine HISTORY: Trauma and pain Frontal and lateral views of the cervical, thoracic, lumbar spine submitted on a total of 9 images, c omparison CT cervical spine 06/25/2020 CERVICAL spine shows anterior cervical fusion and discectomy changes as noted on cervical spine CT. T here is extensive spondylosis at C2-3, C6-7 with associated loss of disc height. Surgical corrine are present within the soft tissues anteriorly toward the right. Anterolisthesis grade 1 L5-S1, L4-5. Lumbar vertebral bodies show preserved height. Bone mineralizati on is reduced. There is multilevel spondylosis. Loss of disc height is present at L5-S1. Sclerosis pr esent in the posterior elements. There is mild levoscoliosis centered at L3. Surgical clips present r ight upper quadrant. There are overlying artifacts. T12-L1 shows loss of disc height with some anterior wedging at T12, vacuum phenomenon present T11-12, T12-L1. Thoracic vertebral bodies show preserved height, there is multilevel spondylosis. IMPRESSION: Degenerative disc disease, facet arthropathy, postop changes, osteopenia. No acute fractu re or subluxation is evident.
[2020-06-25] MEDS ORDERED: HYDROmorphone 0.5 MG/0.5 ML SYRINGE IM STA (13:42)
[2020-06-25 14:18] LABS: Appearance,Urine Clear (Clear); Bilirubin,Urine Negative (Negative); Blood,Urine Negative (Negative); Color,Urine Yellow; Glucose,Urine (UA) Negative (Negative); Ketones,Urine Negative (Negative); Leukocyte Esterase,Urine Negative (Negative); Nitrite,Urine Negative (Negative); PH, Urine 5.5 (5.0-8.0); Protein,Urine Negative (Negative); Specific Gravity,Urine 1.025 (1.001-1.035); Urobilinogen,Urine <2.0 mg/dL (<2.0)
--- NOTE | 2020-06-25 15:16 | CT ---
EXAMINATION TYPE: CT lower extremity LT wo con DATE OF EXAM: 06/25/2020 COMPARISON: None HISTORY: leg pain, knee to foot CT DLP: 389.2 mGycm Automated exposure control for dose reduction was used. Graft technique: Axial images 3 mm thick sect ions. Reconstructed images in the coronal and sagittal plane FINDINGS: There is complete loss of the patellofemoral joint space. No joint effusion is evident. There is late ral subluxation of the patella. There is distal fibular fracture best visualized on the sagittal reconstructed images. Additionally, a posterior tibial nondisplaced fracture is noted. A subtle avulsion of the cortex of the medial meta physeal tibia is noted. Superficial soft tissue swelling is present diffusely. IMPRESSION: 1. NONDISPLACED POSTERIOR TIBIAL FRACTURE. 2. SUBTLE CORTICAL FRACTURE OF THE MEDIAL METAPHYSEAL TIBIA. 3. DISTAL FIBULAR FRACTURE.
[2020-06-25] MEDS ORDERED: ACET/COD 300 MG/30 MG STARTER PACK 6 TAB BTL PO STA (15:31)
--- NOTE | 2020-06-25 15:44 | XR ---
Left ankle HISTORY: Fracture 3 views of left ankle. There is soft tissue swelling. There is overlying splint. Posterior distal fibular and tibial fractur es are not displaced. There is no dislocation. Nondisplaced medial metaphyseal distal left tibial fra cture is seen. IMPRESSION: Fractures in splint
[2020-06-25 15:45] VITALS: BP 126/67; PULSE 61
== END 2020-06-25 15:55 | disposition home or self-care (01) ==
LOC: EC 11:08
DX: S82.892A Other fracture of left lower leg, initial encounter for closed fracture (principal); S82.202A Unspecified fracture of shaft of left tibia, initial encounter for closed fracture; S82.402A Unspecified fracture of shaft of left fibula, initial encounter for closed fracture; S82.302A Unspecified fracture of lower end of left tibia, initial encounter for closed fracture; S90.32XA Contusion of left foot, initial encounter; I11.0 Hypertensive heart disease with heart failure; I50.9 Heart failure, unspecified; K21.9 Gastro-esophageal reflux disease without esophagitis; M79.7 Fibromyalgia; M19.90 Unspecified osteoarthritis, unspecified site; E78.5 Hyperlipidemia, unspecified; G47.30 Sleep apnea, unspecified; G43.909 Migraine, unspecified, not intractable, without status migrainosus; F32.9 Major depressive disorder, single episode, unspecified; F41.9 Anxiety disorder, unspecified; Z79.1 Long term (current) use of non-steroidal anti-inflammatories (NSAID); Z79.899 Other long term (current) drug therapy; Z91.048 Other nonmedicinal substance allergy status; Z91.040 Latex allergy status; Z99.89 Dependence on other enabling machines and devices; W01.198A Fall on same level from slipping, tripping and stumbling with subsequent striking against other object, initial encounter; Y93.89 Activity, other specified
CPT/HCPCS: 81003; 72082; 73590; 73610; 73630; 73700; 72125; 70450; 99284; 29515; 96372 ×2; J2270; J1170

== ENCOUNTER 2021-04-13 10:16 | Observation (INO) | payer MEDICARE, BC ==
[2021-04-13] MEDS ORDERED: DOBUTamine DRIP for NUC MED 500 MG in DEXTROSE/WATER 1 250ML.BAG IV PRN (10:32)
[2021-04-13] MEDS ORDERED: METOPROLOL TARTRATE 5 MG/5 ML VIAL IVP ONE (11:10)
[2021-04-13] MEDS ORDERED: NALOXONE 0.4 MG/ML 1 ML VIAL IV PRN (12:59)
[2021-04-13] MEDS ORDERED: APIXABAN 5 MG TAB PO SCH (13:15)
--- NOTE | 2021-04-13 13:45 | P.CRDCN ---
History of Present Illness Consult date: 04/13/21 History of present illness: HISTORY OF PRESENT ILLNESS: This is a 66-year-old female with a past medical history significant for palpitations, hypertension, hyperlipidemia, and osteoarthritis. Patient follows in the office with Brisa but has not been seen in the office since 2019. The patient presented to the hospital for an outpatient dobutamine stress echo for cardiac clearance to undergo a total knee replacement in the near future. Elizabeth thompson completed the stress test and during the recovery phase, she went into atrial fibrillation with RVR. The patient denies a previous history of atrial fibrillation. Patient was given Lopressor 5mg IVP with improvement of her heart rate into the 120s. EKG reveals afib with RVR. Laboratory data: pending at the time of this dictation Current home cardiac medications include lisinopril 20 mg daily and Lipitor 80 mg daily Most recent echocardiogram obtained in 2015 revealed ejection fraction 60%. Trace aortic regurgitation. Mild tricuspid regurgitation. [id number] mitral regurgitation. REVIEW OF SYSTEMS: At the time of my exam: CONSTITUTIONAL: Denies fever or chills. HEENT: Denies blurred vision, vision changes, or eye pain. Denies hemoptysis CARDIOVASCULAR: Denies chest pain. Denies orthopnea. Denies PND. Denies palpitations RESPIRATORY: Denies shortness of breath. GASTROINTESTINAL: Denies abdominal pain. Denies nausea or vomiting. HEMATOLOGIC: Denies bleeding disorders. GENITOURINARY: Denies any blood in urine. SKIN: Denies pruitis. Denies rash. PHYSICAL EXAM: VITAL SIGNS: Reviewed. GENERAL: Well-developed in no acute distress. HEENT: Head is normocephalic. Pupils are equal, round. Sclerae anicteric. Mucous membranes of the mouth are moist. Neck supple. No JVD or thyromegaly LUNGS: Respirations even and unlabored. Lungs essentially clear to auscultation bilaterally. HEART: Tachycardic. Irregular rate and rhythm. S1 and S2 heard. ABDOMEN: Soft. Nondistended. Nontender. EXTREMITIES: Normal range of motion. No clubbing or cyanosis. Peripheral pulses intact. No lower extremity edema NEUROLOGIC: Awake and alert. Oriented x 3. ASSESSMENT: New onset atrial fibrillation with RVR History of palpitations Hypertension Hyperlipidemia Osteoarthritis Obstructive sleep apnea PLAN: Patient will be admitted overnight for cardiac monitoring Resume home cardiac medications Begin Eliquis 5mg BID. Consult case management for insurance coverage. Begin metoprolol 50mg BID Continue telemetry monitoring Check hemoglobin A1C, CMP, CBC, TSH, and lipid panel Await results of patients stress test from today Further recommendations pending patient course Nurse practitioner note has been reviewed by physician. Signing provider agrees with the documented findings, assessment, and plan of care. 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 Rt breast lumpectomy - negative for cancer per pt. migraines, irregular heartbeat, varicose veins, poor circulation-swe lling lower legs and feet, cerebral palsy-uses cane, occipital neuralgia, optic neuritis, veneers front teeth, cardiac stress test, uses cpap, cerebral palsy. History of Any Multi-Drug Resistant Organisms: None Reported Past Surgical History: Cholecystectomy, Heart Catheterization, Hysterectomy, Tonsillectomy Additional Past Surgical History / Comment(s): Chet cataract, benign carotid tumor- removed,cervical discectomy with fusion, R breast lumpectomy neg CA, cox neuromas chet feet, steroid injections into chet shoulders,rt hip ,cervical spine last inject 05/14 Past Anesthesia/Blood Transfusion Reactions: Previous Problems w/ Anesthesia, Motion Sickness, Postoperative Nausea & Vomiting (PONV) Additional Past Anesthesia/Blood Transfusion Reaction / Comment(s): diff coming out of anesthesia Past Psychological History: Anxiety, Depression Smoking Status: Never smoker Past Alcohol Use History: None Reported Past Drug Use History: None Reported - Past Family History Mother Family Medical History: Hypertension, Osteoarthritis (OA) Additional Family Medical History / Comment(s): neuropathy, carpal tunnel Father Family Medical History: Hypertension Medications and Allergies Home Medications Medication Instructions Recorded Confirmed Type Pantoprazole Sodium [Protonix] 40 mg PO BID 01/03/15 06/25/20 History Cholecalciferol [Vitamin D3 (25 3,000 unit PO BID 04/02/16 06/25/20 History Mcg = 1000 Iu)] Gabapentin [Neurontin] 300 mg PO TID 04/02/16 06/25/20 History Naproxen [Naprosyn] 500 mg PO Q12HR 07/05/18 06/25/20 History Atorvastatin [Lipitor] 80 mg PO DAILY 06/25/20 06/25/20 History Citalopram Hydrobromide 10 mg PO DAILY 06/25/20 06/25/20 History [Citalopram HBr] HYDROcodone/APAP 5-325MG [[place] 1 tab PO Q6HR PRN 3 Days #12 tab 06/25/20 Rx 5-325] lisinopriL 20 mg PO DAILY 06/25/20 06/25/20 History Apixaban [Eliquis] 5 mg PO BID #60 tab 04/13/21 Rx Allergies Allergy/AdvReac Type Severity Reaction Status Date / Time iodine Allergy Rash/Hives, Verified 04/13/21 13:22 itching latex Allergy "redness" Verified 04/13/21 13:22 Physical Exam Vitals: Intake and Output 04/12/21 04/13/21 04/13/21 22:59 06:59 14:59 Other: Weight 126.5 kg Results Current Medications Generic Name Dose Route Start Last Admin Trade Name Freq PRN Reason Stop Dose Admin Hydrocodone Bitart/Acetaminophen 1 each 04/13/21 12:56 Hydrocodone/Apap 5-325mg 1 Each Tab PO Q6HR PRN Severe Pain Apixaban 5 mg 04/13/21 13:15 Apixaban 5 Mg Tab PO BID [facility] Protocol Atorvastatin Calcium 80 mg 04/14/21 09:00 Atorvastatin 80 Mg Tab PO DAILY [facility] Cholecalciferol 75 mcg 04/13/21 21:00 Cholecalciferol 25 Mcg (1000 Iu) Tablet PO BID [facility] Citalopram Hydrobromide 10 mg 04/14/21 09:00 Citalopram Hydrobromide 10 Mg Tab PO DAILY [facility] Gabapentin 300 mg 04/13/21 16:00 Gabapentin 300 Mg Cap PO TID [facility] Dobutamine HCl/Dextrose 500 mg 250 mls @ 0 mls/hr 04/13/21 10:32 / IV Solution IV 04/13/21 23:59 .Q0M PRN Per Protocol Protocol Per Protocol Lisinopril 20 mg 04/14/21 09:00 Lisinopril 20 Mg Tab PO DAILY [facility] Metoprolol Tartrate 50 mg 04/13/21 13:15 Metoprolol Tartrate 50 Mg Tab PO BID JED Naloxone HCl 0.2 mg 04/13/21 12:59 Naloxone 0.4 Mg/Ml 1 Ml Vial IV Q2M PRN Opioid Reversal Pantoprazole Sodium 40 mg 04/13/21 17:30 Pantoprazole 40 Mg Tablet PO AC-BID JED Intake and Output 04/12/21 04/13/21 04/13/21 22:59 06:59 14:59 Other: Weight 126.5 kg Patient Weight 04/14/21 06:59 Weight 126.5 kg
[2021-04-13 14:09] LABS: Basophils # (A) 0.1 k/uL (0-0.2); Basophils % (A) 1 %; Eosinophils # (A) 0.2 k/uL (0-0.7); Eosinophils % (A) 2 %; HCT 45.2 % (34.0-46.0); HGB 14.9 gm/dL (11.4-16.0); Lymphocytes # (A) 1.8 k/uL (1.0-4.8); Lymphocytes % (A) 15 %; MCH 30.1 pg (25.0-35.0); MCHC 32.9 g/dL (31.0-37.0); MCV 91.7 fL (80.0-100.0); Mean Platelet Volume 8.2; Monocytes # (A) 0.6 k/uL (0-1.0); Monocytes % (A) 5 %; Neutrophils # (A) 9.5 k/uL (1.3-7.7); Neutrophils % (A) 78 %; Platelet Count 350 k/uL (150-450); RBC 4.93 m/uL (3.80-5.40); RDW 13.4 % (11.5-15.5); WBC 12.2 k/uL (3.8-10.6)
[2021-04-13 14:20] LABS: ALT 21 U/L (4-34); AST 24 U/L (14-36); African American GFR (CKD) >90 (>60 ml/min/1.73 sqM); Albumin 4.4 g/dL (3.5-5.0); Alkaline Phosphatase 147 U/L (38-126); Anion Gap 12 mmol/L; Blood Urea Nitrogen 18 mg/dL (7-17); Calcium 9.8 mg/dL (8.4-10.2); Carbon Dioxide 21 mmol/L (22-30); Chloride 110 mmol/L (98-107); Glucose 110 mg/dL (74-99); Non-African American GFR(CKD) 84 (>60 ml/min/1.73 sqM); Potassium 4.1 mmol/L (3.5-5.1); Sodium 143 mmol/L (137-145); Total Bilirubin 1.5 mg/dL (0.2-1.3); Total Protein 7.4 g/dL (6.3-8.2)
--- NOTE | 2021-04-13 16:35 | P.STRESS ---
- Stress Test Note Stress Test Results/Findings: Exam Performed: Exam Date: Reason for Exam: Height: 5 ft 5 in Weight: 126.5 kg Protocol: Stage: Duration of Exercise: Resting Heart Rate: Resting Blood Pressure: Maximum Achieved Heart Rate: Maximum Achieved Blood Pressure: 85% PMHR: 100% PMHR: METS: Technologist Comment: Stress Test Results/Findings: Dobutamine stress echo with Definity contrast Distant 170 beats minute, Baseline blood pressure 152/64 mmHg baseline 12-lead EKG showed sinus rhythm with atrial couplets and triplets Patient is a dobutamine infusion per protocol up to 30 mics. She complained of chest discomfort during the infusion but without any significant ST-T abnormalities. Occasional PVCs noted At the recovery the patient and atrial fibrillation with RVR and later received metoprolol to control her rate Baseline 2-D echo images showed normal LV systolic function without segmental wall motion abnormalities. Definity contrast was used With dobutamine there was a stepwise increment in overall LV contractility without development of any wall motion abnormalities. At recovery duration global LV systolic function with normal Impression No echocardiographic evidence for ischemia No ECG evidence for ischemia Occasional PVCs Atrial fibrillation induced during the recovery, sustained
--- NOTE | 2021-04-13 16:42 | P.CRDCN ---
History of Present Illness History of present illness: 66-year-old obese female awaiting bilateral knee surgery She has a history of hypertension History of dyslipidemia Family history of atrial fibrillation CHANA VASC score is 3 Sustained atrial fibrillation induced Suggest Patient stable from a cardiac standpoint to proceed with knee surgery Admitted overnight to control heart rates and initiate anticoagulation Is quite likely that she will convert to sinus rhythm spontaneously Metoprolol 50 mg twice daily ELIQUIS 5 mg twice daily There is no evidence for ischemia on the stress test and she would proceed with knee surgery as clinically indicated Check TSH Check hemoglobin A1c Check lipid panel on atorvastatin Patient will follow Dr. 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 Rt breast lumpectomy - negative for cancer per pt. migraines, irregular heartbeat, varicose veins, poor circulation- swelling lower legs and feet, cerebral palsy-uses cane, occipital neuralgia, optic neuritis, veneers front teeth, cardiac stress test, uses cpap, cerebral palsy. History of Any Multi-Drug Resistant Organisms: None Reported Past Surgical History: Cholecystectomy, Heart Catheterization, Hysterectomy, Tonsillectomy Additional Past Surgical History / Comment(s): [place] cataract, benign carotid tumor- removed,cervical discectomy with fusion, R breast lumpectomy neg CA, cox neuromas carlos feet, steroid injections into [place] shoulders,rt hip ,cervical spine last inject 05/14 Past Anesthesia/Blood Transfusion Reactions: Previous Problems w/ Anesthesia, Motion Sickness, Postoperative Nausea & Vomiting (PONV) Additional Past Anesthesia/Blood Transfusion Reaction / Comment(s): diff coming out of anesthesia Past Psychological History: Anxiety, Depression Smoking Status: Never smoker Past Alcohol Use History: None Reported Past Drug Use History: None Reported - Past Family History Mother Family Medical History: Hypertension, Osteoarthritis (OA) Additional Family Medical History / Comment(s): neuropathy, carpal tunnel Father Family Medical History: Hypertension Medications and Allergies Home Medications Medication Instructions Recorded Confirmed Type Pantoprazole Sodium [Protonix] 40 mg PO BID 01/03/15 04/13/21 History Cholecalciferol [Vitamin D3 (25 75 unit PO DAILY 04/02/16 04/13/21 History Mcg = 1000 Iu)] Gabapentin [Neurontin] 300 mg PO AC-TID 04/02/16 04/13/21 History Naproxen [Naprosyn] 500 mg PO AC-BID@1200,1800 07/05/18 04/13/21 History Atorvastatin [Lipitor] 80 mg PO AC-SUPPER 06/25/20 04/13/21 History Citalopram Hydrobromide 10 mg PO DAILY 06/25/20 04/13/21 History [Citalopram HBr] Apixaban [Eliquis] 5 mg PO BID #60 tab 04/13/21 Rx HYDROcodone/APAP 7.5-325MG [[place] 1 tab PO DAILY PRN 04/13/21 04/13/21 History 7.5-325] Lisinopril [Prinivil] 10 mg PO DAILY 04/13/21 04/13/21 History Loperamide [Imodium] 2 mg PO QID PRN 04/13/21 04/13/21 History Mupirocin 2% Oint [Bactroban 2% 1 applic TOPICAL BID 04/13/21 04/13/21 History Oint] rOPINIRole HCL [Requip] 1 mg PO HS 04/13/21 04/13/21 History tiZANidine [Zanaflex] 4 mg PO HS 04/13/21 04/13/21 History Allergies Allergy/AdvReac Type Severity Reaction Status Date / Time iodine Allergy Rash/Hives, Verified 04/13/21 14:11 itching latex Allergy "redness" Verified 04/13/21 14:11 Physical Exam Vitals: Intake and Output 04/13/21 04/13/21 04/13/21 06:59 14:59 22:59 Intake Total 240 Balance 240 Intake: Oral 240 Other: # Bowel Movements 2 Weight 126.5 kg Results 04/13/21 13:14 04/13/21 13:14 Cardiac Enzymes 04/13/21 Range/Units 13:14 AST 24 (14-36) U/L CBC 04/13/21 Range/Units 13:14 WBC 12.2 H (3.8-10.6) k/uL RBC 4.93 (3.80-5.40) m/uL Hgb 14.9 (11.4-16.0) gm/dL Hct 45.2 (34.0-46.0) % Plt Count 350 (150-450) k/uL Comprehensive Metabolic Panel 04/13/21 Range/Units 13:14 Sodium 143 (137-145) mmol/L Potassium 4.1 (3.5-5.1) mmol/L Chloride 110 H (98-107) mmol/L Carbon Dioxide 21 L (22-30) mmol/L BUN 18 H (7-17) mg/dL Creatinine 0.75 (0.52-1.04) mg/dL Glucose 110 H (74-99) mg/dL Calcium 9.8 (8.4-10.2) mg/dL AST 24 (14-36) U/L ALT 21 (4-34) U/L Alkaline Phosphatase 147 H (38-126) U/L Total Protein 7.4 (6.3-8.2) g/dL Albumin 4.4 (3.5-5.0) g/dL Current Medications Generic Name Dose Route Start Last Admin Trade Name Freq PRN Reason Stop Dose Admin Hydrocodone Bitart/Acetaminophen 1 each 04/13/21 12:56 Hydrocodone/Apap 5-325mg 1 Each Tab PO Q6HR PRN Severe Pain Atorvastatin Calcium 80 mg 04/14/21 09:00 Atorvastatin 80 Mg Tab PO DAILY [facility] Cholecalciferol 75 mcg 04/13/21 21:00 Cholecalciferol 25 Mcg (1000 Iu) Tablet PO BID [facility] Citalopram Hydrobromide 10 mg 04/14/21 09:00 Citalopram Hydrobromide 10 Mg Tab PO DAILY [facility] Gabapentin 300 mg 04/13/21 16:00 Gabapentin 300 Mg Cap PO TID [facility] Dobutamine HCl/Dextrose 500 mg 250 mls @ 0 mls/hr 04/13/21 10:32 / IV Solution IV 04/13/21 23:59 .Q0M PRN Per Protocol Protocol Per Protocol Lisinopril 20 mg 04/14/21 09:00 Lisinopril 20 Mg Tab PO DAILY [facility] Metoprolol Tartrate 50 mg 04/13/21 13:15 Metoprolol Tartrate 50 Mg Tab PO BID JED Naloxone HCl 0.2 mg 04/13/21 12:59 Naloxone 0.4 Mg/Ml 1 Ml Vial IV Q2M PRN Opioid Reversal Pantoprazole Sodium 40 mg 04/13/21 17:30 Pantoprazole 40 Mg Tablet PO AC-BID JED Rivaroxaban 20 mg 04/13/21 17:30 Rivaroxaban 20 Mg Tab PO W/SUPPER JED Protocol Intake and Output 04/13/21 04/13/21 04/13/21 06:59 14:59 22:59 Intake Total 240 Balance 240 Intake: Oral 240 Other: # Bowel Movements 2 Weight 126.5 kg Patient Weight 04/14/21 06:59 Weight 126.5 kg 04/13/21 13:14 04/13/21 13:14
[2021-04-13] MEDS: GABAPENTIN 300 MG CAP PO SCH ×2 (17:40→21:08)
[2021-04-13] MEDS: PANTOPRAZOLE 40 MG TABLET PO SCH (17:40)
[2021-04-13] MEDS: METOPROLOL TARTRATE 50 MG TAB PO SCH ×2 (17:40→21:08)
[2021-04-13] MEDS: RIVAROXABAN 20 MG TAB PO SCH (17:40)
[2021-04-13] MEDS: HYDROcodone/APAP 5-325MG 1 EACH TAB PO PRN (17:40)
[2021-04-13 21:04] LABS: Chol/HDL Ratio 2.99 Ratio; LDL Cholesterol,Calculated 85.6 mg/dL (0.0-131.0); VLDL Calculation 17.54 mg/dL (5.00-40.00)
[2021-04-13] MEDS: CHOLECALCIFEROL 25 MCG (1000 IU) TABLET PO SCH (21:08)
[2021-04-14] MEDS: PANTOPRAZOLE 40 MG TABLET PO SCH ×2 (06:15→17:10)
[2021-04-14] MEDS: METOPROLOL TARTRATE 50 MG TAB PO SCH (08:50)
[2021-04-14] MEDS: ATORVASTATIN 80 MG TAB PO SCH (08:59)
[2021-04-14] MEDS: GABAPENTIN 300 MG CAP PO SCH ×3 (08:59→21:18)
[2021-04-14] MEDS: CHOLECALCIFEROL 25 MCG (1000 IU) TABLET PO SCH ×2 (08:59→21:18)
[2021-04-14] MEDS: lisinopriL 20 MG TAB PO SCH (08:59)
[2021-04-14] MEDS: CITALOPRAM HYDROBROMIDE 10 MG TAB PO SCH (11:00)
[2021-04-14] MEDS: METOPROLOL SUCCINATE (ER) 25 MG TAB.ER.24H PO SCH (11:01)
[2021-04-14] MEDS: FLECAINIDE 50 MG TAB PO SCH ×2 (11:01→21:18)
--- NOTE | 2021-04-14 11:41 | P.PN ---
Subjective Progress Note Date: 04/14/21 HISTORY OF PRESENT ILLNESS: This is a 66-year-old female with a past medical history significant for palpitations, hypertension, hyperlipidemia, and osteoarthritis. Patient follows in the office with Brisa but has not been seen in the office since 2019. The patient presented to the hospital for an outpatient dobutamine stress echo for cardiac clearance to undergo a total knee replacement in the near future. Patient completed the stress test and during the recovery phase, she went into atrial fibrillation with RVR. The patient denies a previous history of atrial fibrillation. Patient was given Lopressor 5mg IVP with improvement of her heart rate into the 120s. EKG reveals afib with RVR. Laboratory data: pending at the time of this dictation Current home cardiac medications include lisinopril 20 mg daily and Lipitor 80 mg daily Most recent echocardiogram obtained in 2015 revealed ejection fraction 60%. Trace aortic regurgitation. Mild tricuspid regurgitation. [id number] mitral regurgitation. 04/14/2021 Patient underwent stress testing yesterday which was negative for ischemia. Patient converted to sinus mechanism. She is maintaining sinus mechanism this morning with a heart rate in the 50s. She denies chest pain or pressure. D enies shortness of breath. TSH within normal limits. PHYSICAL EXAM: VITAL SIGNS: Reviewed. GENERAL: Well-developed in no acute distress. HEENT: Head is normocephalic. Pupils are equal, round. Sclerae anicteric. Mucous membranes of the mouth are moist. Neck supple. No JVD or thyromegaly LUNGS: Respirations even and unlabored. Lungs essentially clear to auscultation bilaterally. HEART: Regular rate and rhythm. S1 and S2 heard. ABDOMEN: Soft. Nondistended. Nontender. EXTREMITIES: Normal range of motion. No clubbing or cyanosis. Peripheral pulses intact. No lower extremity edema NEUROLOGIC: Awake and alert. Oriented x 3. ASSESSMENT: New onset paroxysmal atrial fibrillation with RVR History of palpitations Hypertension Hyperlipidemia Osteoarthritis Obstructive sleep apnea PLAN: Continue current cardiac medications Change metoprolol to long acting 25mg daily Add Flecainide 50mg BID Patients stress test completed yesterday was negative for ischemia Patient is cleared from a cardiac standpoint to undergo knee surgery She is to follow up with Dr. Ledezma 8 weeks postoperatively Anticipate discharge home tomorrow Nurse practitioner note has been reviewed by physician. Signing provider agrees with the documented findings, assessment, and plan of care. Objective - Vital Signs Vital signs: Vital Signs Temp 97.6 F 04/14/21 08:00 Pulse 51 L 04/14/21 08:00 Resp 18 04/14/21 08:00 BP 108/62 04/14/21 08:00 Pulse Ox 96 04/14/21 08:00 Intake & Output 04/13/21 04/14/21 04/14/21 18:59 06:59 18:59 Intake Total 420 600 180 Output Total 550 Balance 420 50 180 Weight 126.5 kg 129.5 kg Intake: Oral 420 600 180 Output: Urine 550 Other: Voiding Method Bedside Commode # Voids 1 1 # Bowel Movements 2 - Labs CBC & Chem 7: 04/13/21 13:14 04/13/21 13:14 Labs: Abnormal Lab Results - Last 24 Hours (Table) 04/13/21 04/13/21 Range/Units 13:14 13:14 WBC 12.2 H (3.8-10.6) k/uL Neutrophils # 9.5 H (1.3-7.7) k/uL Chloride 110 H (98-107) mmol/L Carbon Dioxide 21 L (22-30) mmol/L BUN 18 H (7-17) mg/dL Glucose 110 H (74-99) mg/dL Total Bilirubin 1.5 H (0.2-1.3) mg/dL Alkaline Phosphatase 147 H (38-126) U/L
[2021-04-14] MEDS: HYDROcodone/APAP 5-325MG 1 EACH TAB PO PRN (14:25)
[2021-04-14] MEDS: RIVAROXABAN 20 MG TAB PO SCH (17:10)
[2021-04-15] MEDS: PANTOPRAZOLE 40 MG TABLET PO SCH ×2 (06:24→16:58)
[2021-04-15] MEDS: FLECAINIDE 50 MG TAB PO SCH (08:45)
[2021-04-15] MEDS: CHOLECALCIFEROL 25 MCG (1000 IU) TABLET PO SCH (08:45)
[2021-04-15] MEDS: GABAPENTIN 300 MG CAP PO SCH ×2 (08:45→16:58)
[2021-04-15] MEDS: ATORVASTATIN 80 MG TAB PO SCH (08:45)
[2021-04-15] MEDS: METOPROLOL SUCCINATE (ER) 25 MG TAB.ER.24H PO SCH (08:45)
[2021-04-15] MEDS: CITALOPRAM HYDROBROMIDE 10 MG TAB PO SCH (08:46)
[2021-04-15] MEDS: lisinopriL 20 MG TAB PO SCH (12:21)
--- NOTE | 2021-04-15 14:20 | P.DS ---
Providers Date of admission: 04/13/21 12:18 Attending physician: Immanuel Ledezma Primary care physician: Stated None Hospital Course: INTERVAL HISTORY: This is a 66-year-old female with a past medical history significant for palpitations, hypertension, hyperlipidemia, and osteoarthritis. Patient follows in the office with Brisa but has not been seen in the office since 2019. The patient presented to the hospital for an outpatient dobutamine stress echo on 04/13/21 for cardiac clearance to undergo a total knee replacement in the near future. Patient completed the stress test and during the recovery phase, she went into atrial fibrillation with RVR. Patient was given Lopressor 5mg IVP with improvement of her heart rate into the 120s. Stress test was negative for reversible ischemia. She converted to sinus mechaism. She is maintaining sinus mechanism with heart rate in the 50s, occasional PACs. PHYSICAL EXAMINATION: Blood pressure 142/64, heart rate 54 respirations 16 temp 97.8F. Patient is 98% on room air HEART: S1, S2 normal. LUNGS: Clear to auscultation. NECK: Supple. ABDOMEN: Soft. EXTREMITIES: 2+ peripheral pulses. LAB DATA: WBC 12.2, hemoglobin 14.9, platelets 350, sodium 143, potassium 4.1, BUN 18, serum creatinine 0.7, hemoglobin A1c 5.1, triglycerides 87, cholesterol 155, LDL 85, HDL 51, TSH within normal limits EKG: Sinus bradycardia, HR 52, t wave inversion in lead III, QT/QTc 412/383 FINAL IMPRESSION: New onset paroxysmal atrial fibrillation with RVR, CHANA VASC score is 3 History of palpitations Hypertension Hyperlipidemia Osteoarthritis Obstructive sleep apnea PLAN: Patient may be able to be discharged home today. We will make him a follow-up appointment with Dr. Ledezma in 6 weeks. Continue metoprolol succinate 25 mg daily, flecainide 50 mg twice a day. Patient will be anticoagulated with Xarelto Plan - Discharge Summary Discharge Rx Participant: Yes New Discharge Prescriptions: New Flecainide [Tambocor] 50 mg PO Q12HR 30 Days #60 tab Metoprolol Succinate (ER) [Toprol XL] 25 mg PO DAILY 30 Days #30 tablet Rivaroxaban [Xarelto] 20 mg PO W/SUPPER 30 Days #30 tab Continue Pantoprazole Sodium [Protonix] 40 mg PO BID Gabapentin [Neurontin] 300 mg PO AC-TID Cholecalciferol [Vitamin D3 (25 Mcg = 1000 Iu)] 75 unit PO DAILY Citalopram Hydrobromide [Citalopram HBr] 10 mg PO DAILY Atorvastatin [Lipitor] 80 mg PO AC-SUPPER HYDROcodone/APAP 7.5-325MG [[place] 7.5-325] 1 tab PO DAILY PRN PRN Reason: Pain Lisinopril [Prinivil] 10 mg PO DAILY No Action Naproxen [Naprosyn] 500 mg PO AC-BID@1200,1800 Mupirocin 2% Oint [Bactroban 2% Oint] 1 applic TOPICAL BID Loperamide [Imodium] 2 mg PO QID PRN PRN Reason: Diarrhea rOPINIRole HCL [Requip] 1 mg PO HS tiZANidine [Zanaflex] 4 mg PO HS Discharge Medication List Pantoprazole Sodium [Protonix] 40 mg PO BID 01/03/15 [History] Cholecalciferol [Vitamin D3 (25 Mcg = 1000 Iu)] 75 unit PO DAILY 04/02/16 [History] Gabapentin [Neurontin] 300 mg PO AC-TID 04/02/16 [History] Naproxen [Naprosyn] 500 mg PO AC-BID@1200,1800 07/05/18 [History] Atorvastatin [Lipitor] 80 mg PO AC-SUPPER 06/25/20 [History] Citalopram Hydrobromide [Citalopram HBr] 10 mg PO DAILY 06/25/20 [History] HYDROcodone/APAP 7.5-325MG [[place] 7.5-325] 1 tab PO DAILY PRN 04/13/21 [History] Lisinopril [Prinivil] 10 mg PO DAILY 04/13/21 [History] Loperamide [Imodium] 2 mg PO QID PRN 04/13/21 [History] Mupirocin 2% Oint [Bactroban 2% Oint] 1 applic TOPICAL BID 04/13/21 [History] rOPINIRole HCL [Requip] 1 mg PO HS 04/13/21 [History] tiZANidine [Zanaflex] 4 mg PO HS 04/13/21 [History] Flecainide [Tambocor] 50 mg PO Q12HR 30 Days #60 tab 04/15/21 [Rx] Metoprolol Succinate (ER) [Toprol XL] 25 mg PO DAILY 30 Days #30 tablet 04/15/21 [Rx] Rivaroxaban [Xarelto] 20 mg PO W/SUPPER 30 Days #30 tab 04/15/21 [Rx] Follow up Appointment(s)/Referral(s): Immanuel Ledezma MD [STAFF PHYSICIAN] - 6 Weeks (Needs to see Dr. Ledezma 8 weeks AFTER her knee surgery) Patient Instructions/Handouts: Rivaroxaban (By mouth), A-fib (Atrial Fibrill ation) (DC) Discharge/Stand Alone Forms: Who Do I Call?, Community Resources, Help In The Home, Outpatient Counseling
[2021-04-15] MEDS: HYDROcodone/APAP 5-325MG 1 EACH TAB PO PRN (16:58)
[2021-04-15] MEDS: RIVAROXABAN 20 MG TAB PO SCH (16:58)
[2021-04-15 17:51] VITALS: BP 132/72; PULSE 50; RESP 15; TEMP 97.5
== END 2021-04-15 19:30 | disposition home or self-care (01) ==
LOC: RADNMMAIN 10:16 → 3SCARD 12:18
PROVIDERS: ADMIT Internal Medicine Clinical Cardiac Electrophysiology; ATTEND Internal Medicine Clinical Cardiac Electrophysiology
DX: I48.0 Paroxysmal atrial fibrillation (principal); R00.2 Palpitations; I11.0 Hypertensive heart disease with heart failure; I50.9 Heart failure, unspecified; E78.5 Hyperlipidemia, unspecified; M19.90 Unspecified osteoarthritis, unspecified site; G47.33 Obstructive sleep apnea (adult) (pediatric); I34.0 Nonrheumatic mitral (valve) insufficiency; J45.909 Unspecified asthma, uncomplicated; M79.7 Fibromyalgia; K21.9 Gastro-esophageal reflux disease without esophagitis; G43.909 Migraine, unspecified, not intractable, without status migrainosus; I83.90 Asymptomatic varicose veins of unspecified lower extremity; M79.89 Other specified soft tissue disorders; G80.9 Cerebral palsy, unspecified; M54.81 Occipital neuralgia; H46.9 Unspecified optic neuritis; F41.9 Anxiety disorder, unspecified; F32.9 Major depressive disorder, single episode, unspecified; E66.9 Obesity, unspecified; Z68.42 Body mass index [BMI] 45.0-49.9, adult; Z87.01 Personal history of pneumonia (recurrent); Z90.710 Acquired absence of both cervix and uterus; Z90.49 Acquired absence of other specified parts of digestive tract; Z98.1 Arthrodesis status; Z79.899 Other long term (current) drug therapy; Z79.1 Long term (current) use of non-steroidal anti-inflammatories (NSAID); Z79.01 Long term (current) use of anticoagulants; Z91.040 Latex allergy status; Z91.048 Other nonmedicinal substance allergy status; Z82.61 Family history of arthritis; Z82.0 Family history of epilepsy and other diseases of the nervous system; Z82.49 Family history of ischemic heart disease and other diseases of the circulatory system
CPT/HCPCS: 97116; 97530 ×2; 97163; 97535; 97167; 80061; 80053; 84443; 85025; 83036; G0378 ×3; C8930; J1250; Q9950; 93351

== ENCOUNTER 2021-11-09 10:02 | Day surgery (SDC) | payer MEDICARE, BC ==
[2021-11-09 11:01] LABS: Mean Platelet Volume 8.1; Platelet Count 308 k/uL (150-450)
[2021-11-09 11:19] LABS: INR 1.2 (<1.2); Prothrombin Time 12.5 sec (9.0-12.0)
[2021-11-09 15:47] VITALS: RESP 20
[2021-11-09 15:48] VITALS: BP 181/95; PULSE 74
--- NOTE | 2021-11-10 08:09 | US ---
ULTRASOUND GUIDED FNA AND CORE THYROID BIOPSY: CLINICAL HISTORY: Left thyroid nodule FINDINGS: The procedure was explained to the patient. The risks, complications, benefits and alternatives were discussed and any questions were answered. Informed consent was obtained. Patient was placed supin e on the ultrasound table and prepped and draped in the usual sterile fashion. Utilizing a 25 gauge needle, five passes were made into the requested left thyroid nodule. Subsequently, twoI 20-gauge co re biopsy samples were obtained. Patient was stable throughout the procedure. Pathology is pending. All elements of maximal barrier technique were utilized. IMPRESSION: 1. Successful ultrasound guided FNA and core thyroid biopsy.
== END 2021-11-09 15:00 | disposition home or self-care (01) ==
LOC: RADPROMAIN 10:02
PROVIDERS: ATTEND Internal Medicine
DX: E04.2 Nontoxic multinodular goiter (principal)
CPT/HCPCS: 10005; 21550; 36415; 60100; 70460; 70491; 82565; 84520; 85049; 85610; 88173; 88305

== ENCOUNTER → 2021-11-09 | Outpatient (CLI) | payer MEDICARE, BC ==
--- NOTE | 2021-11-09 14:16 | CT ---
EXAMINATION TYPE: CT soft tissue neck w con DATE OF EXAM: 11/09/2021 COMPARISON: Correlation ultrasound 01/10/2020 HISTORY: 66-year-old female right-sided neck lump, 672.70 Multinodular goiter TECHNIQUE: Contiguous axial scanning of the soft tissues of the neck performed with IV Contrast, toya ent injected with 100 mL of Isovue 300. Coronal/sagittal reconstructions performed. CT DLP: 672.70 mGycm Automated exposure control for dose reduction was used. FINDINGS: Visualized orbits and globes, paranasal sinuses, intracranial structures, and mastoid air cells appea r clear. The nasopharynx appears clear. Retropharyngeal course of the bilateral ICAs causing some impression on the back wall of the hypophar ynx. Oropharynx is clear. Tracheal column as well as the glottic and subglottic structures and visualized upper lungs appear clear. Epiglottis and prevertebral soft tissues are satisfactory. Multiple surgical clips right carotid bifurcation. Palpable marker is present overlying this region. The carotid arteries are patent. The parotid and submandibular glands appear satisfactory. Left lobe of thyroid gland estimated at 4.0 cm. Right lobe of the thyroid gland estimated at 3.6 cm. Unable to clearly identify a thyroid nodule by CT. No cervical lymphadenopathy seen. Of note, there is severe degenerative change of the adjacent sternoclavicular joints with bilateral h ypertrophy joint capsules. Hypertrophic changes extend to abut the inferior aspect of the thyroid gla nd on both sides.. Postsurgical change of C3-C6 ACDF. Moderate to advanced degenerative disc disease below the fusion. IMPRESSION: 1. THYROID GLAND MEASURING UP TO 4.0 CM LONG. UNABLE TO CLEARLY IDENTIFY A DISCRETE THYROID NODULE BY CT. PLEASE REFER TO ULTRASOUND BEING PERFORMED TODAY. 2. SEVERE BILATERAL STERNOCLAVICULAR JOINT OA WITH BILATERAL MARKED CAPSULAR HYPERTROPHY WHICH COULD BE DUE TO SYNOVITIS OR JOINT EFFUSIONS. OF NOTE, THE HYPERTROPHIED JOINT CAPSULES EXTEND TO ABUT THE LOWER POLE OF THE THYROID GLAND ON BOTH SIDES. 3. SURGICAL CLIPS AT THE RIGHT CAROTID BIFURCATION. THERE IS AN OVERLYING PALPABLE MARKER. NO CERVICA L LYMPHADENOPATHY OR SUSPICIOUS MASS IDENTIFIED HERE.
--- NOTE | 2021-11-09 14:33 | CT ---
EXAMINATION TYPE: CT brain w con DATE OF EXAM: 11/09/2021 COMPARISON: 06/25/2020 HISTORY: 66-year-old female Syncope battery depletion. 1311.40 TECHNIQUE: Contiguous axial scanning of the brain performed with IV Contrast, patient injected with i ncluded in neck mL of Isovue 300. Coronal/sagittal reconstructions performed. CT DLP: 1311.40 mGycm Automated exposure control for dose reduction was used. FINDINGS: There is no abnormal enhancing mass or midline shift identified. The ventricles and sulci are within normal limits in size. No extra-axial fluid collection identified. No effacement of the basal subara chnoid cisterns. There appears to be diffusely very small caliber to the vertebral and basilar arteri es. Trace mucosal thickening ethmoid air cells. Orbits and globes appear intact. Mastoid air cells well p neumatized. IMPRESSION: 1. NO ENHANCING INTRACRANIAL LESIONS. NO MASS EFFECT OR MIDLINE SHIFT. 2. INCIDENTALLY, THERE IS DIFFUSELY DIMINUTIVE APPEARANCE TO THE VERTEBRAL AND BASILAR ARTERIES. CONSTANTINE ELATE FOR ANY POTENTIAL CHRONIC SYMPTOMS OF VERTEBROBASILAR INSUFFICIENCY IN THIS PATIENT.
== END | disposition home or self-care (01) ==
LOC: RADCTMAIN 10:01
PROVIDERS: ATTEND General Practice
DX: M19.09 Primary osteoarthritis, other specified site (principal)
CPT/HCPCS: 70491; 70460; 36415; Q9967

== ENCOUNTER 2023-10-08 11:09 | Inpatient (IN) | payer MEDICARE, BC ==
[2023-10-08] MEDS: SODIUM CHLORIDE 0.9% 500 ML 500 ML IV ONE (11:36)
[2023-10-08 12:03] LABS: ALT 22 U/L (4-34); AST 27 U/L (14-36); African American GFR (CKD) 80 (>60 ml/min/1.73 sqM); Albumin 3.9 g/dL (3.5-5.0); Alkaline Phosphatase 114 U/L (38-126); Anion Gap 8 mmol/L; Blood Urea Nitrogen 11 mg/dL (7-17); Carbon Dioxide 21 mmol/L (22-30); Chloride 108 mmol/L (98-107); Glucose 106 mg/dL (74-99); Magnesium 1.8 mg/dL (1.6-2.3); Non-African American GFR(CKD) 69 (>60 ml/min/1.73 sqM); Potassium 3.8 mmol/L (3.5-5.1); Sodium 137 mmol/L (137-145); Total Bilirubin 1.4 mg/dL (0.2-1.3); Total Protein 6.6 g/dL (6.3-8.2)
[2023-10-08 12:08] LABS: Basophils # (A) 0.1 k/uL (0-0.2); Basophils % (A) 1 %; Eosinophils # (A) 0.2 k/uL (0-0.7); Eosinophils % (A) 2 %; HCT 41.5 % (34.0-46.0); Lymphocytes # (A) 1.4 k/uL (1.0-4.8); Lymphocytes % (A) 17 %; MCH 29.8 pg (25.0-35.0); MCHC 33.8 g/dL (31.0-37.0); MCV 88.2 fL (80.0-100.0); Mean Platelet Volume 8.1; Monocytes # (A) 0.6 k/uL (0-1.0); Monocytes % (A) 8 %; Neutrophils # (A) 5.6 k/uL (1.3-7.7); Neutrophils % (A) 71 %; Platelet Count 250 k/uL (150-450); RBC 4.71 m/uL (3.80-5.40); RDW 13.9 % (11.5-15.5)
--- NOTE | 2023-10-08 12:41 | ED ---
General Adult HPI - General Chief complaint: Fall Stated complaint: Fall Time Seen by Provider: 10/08/23 11:11 Source: patient, EMS, RN notes reviewed Mode of arrival: EMS Limitations: no limitations - History of Present Illness Initial comments: 68-year-old female presents emergency department via EMS chief complaint of fall, weakness she states that she started having right thigh pain yesterday she took some Toradol and Zanaflex for this. She states today she started having left leg pain with movement. She denies any bowel, bladder incontinence r etention states she has bad back. She states she slid out of her bed states that she called for lift assist but was extremely weak so EMS brought her in for evaluation. She states she does have generalized weakness denies any focal weakness denies any head injury no loss conscious - Related Data Home Medications Medication Instructions Recorded Confirmed Pantoprazole Sodium [Protonix] 40 mg PO BID 01/03/15 11/09/21 Cholecalciferol [Vitamin D3 (25 75 unit PO DAILY 04/02/16 11/09/21 Mcg = 1000 Iu)] Gabapentin [Neurontin] 300 mg PO AC-TID 04/02/16 11/09/21 Naproxen [Naprosyn] 500 mg PO AC-BID@1200,1800 07/05/18 11/09/21 Atorvastatin [Lipitor] 80 mg PO AC-SUPPER 06/25/20 11/09/21 Citalopram Hydrobromide 10 mg PO DAILY 06/25/20 11/09/21 [Citalopram HBr] HYDROcodone/APAP 7.5-325MG [[place] 1 tab PO DAILY PRN 04/13/21 11/09/21 7.5-325] Loperamide [Imodium] 2 mg PO QID PRN 04/13/21 11/09/21 Mupirocin 2% Oint [Bactroban 2% 1 applic TOPICAL BID 04/13/21 11/09/21 Oint] lisinopriL [Prinivil] 10 mg PO DAILY 04/13/21 11/09/21 rOPINIRole HCL [Requip] 1 mg PO HS 04/13/21 11/09/21 tiZANidine [Zanaflex] 4 mg PO HS 04/13/21 11/09/21 Warfarin [Coumadin] 7.5 mg PO DAILY 10/28/21 11/09/21 Celecoxib [CeleBREX] 50 mg PO DAILY 11/09/21 11/09/21 Previous Rx's Medication Instructions Recorded Flecainide [Tambocor] 50 mg PO Q12HR 30 Days #60 tab 04/15/21 Metoprolol Succinate (ER) [Toprol 25 mg PO DAILY 30 Days #30 tablet 04/15/21 XL] Allergies Allergy/AdvReac Type Severity Reaction Status Date / Time iodine Allergy Rash/Hives, Verified 10/08/23 11:19 itching latex Allergy "redness" Verified 10/08/23 11:19 Review of Systems ROS Statement: Those systems with pertinent positive or pertinent negative responses have been documented in the HPI. ROS Other: All systems not noted in ROS Statement are negative. 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 Rt breast lumpectomy - negative for cancer per pt. migraines, irregular heartbeat, varicose veins, poor circulation- swelling lower legs and feet, cerebral palsy-uses cane, occipital neuralgia, optic neuritis, veneers front teeth, cardiac stress test, uses cpap, cerebral palsy. History of Any Multi-Drug Resistant Organisms: None Reported Past Surgical History: Cholecystectomy, Heart Catheterization, Hysterectomy, Tonsillectomy Additional Past Surgical History / Comment(s): Carlos cataract, benign carotid tumor- removed,cervical discectomy with fusion, R breast lumpectomy neg CA, cox neuromas carlos feet, steroid injections into carlos shoulders,rt hip ,cervical spine last inject 05/14 Past Anesthesia/Blood Transfusion Reactions: Previous Problems w/ Anesthesia, Motion Sickness, Postoperative Nausea & Vomiting (PONV) Additional Past Anesthesia/Blood Transfusion Reaction / Comment(s): diff coming out of anesthesia Past Psychological History: Anxiety, Depression Smoking Status: Never smoker Past Alcohol Use History: None Reported Past Drug Use History: None Reported - Past Family History Mother Family Medical History: Hypertension, Osteoarthritis (OA) Additional Family Medical History / Comment(s): neuropathy, carpal tunnel Father Family Medical History: Hypertension General Exam Limitations: no limitations General appearance: alert, in no apparent distress, obese Head exam: Present: atraumatic, normocephalic, normal inspection Eye exam: Present: normal appearance, PERRL, EOMI. Absent: scleral icterus, conjunctival injection, periorbital swelling Neck exam: Present: normal inspection. Absent: tenderness, meningismus, lymphadenopathy Respiratory exam: Present: normal lung sounds bilaterally. Absent: respiratory distress, wheezes, rales, rhonchi, stridor Cardiovascular Exam: Present: regular rate, normal rhythm, normal heart sounds. Absent: systolic murmur, diastolic murmur, rubs, gallop, clicks GI/Abdominal exam: Present: soft, normal bowel sounds. Absent: distended, tenderness, guarding, rebound, rigid Extremities exam: Present: other (Lower extremity strength 3-5 right 4-5 left neurovascular intact there is diffuse swelling noted) Neurological exam: Present: alert, oriented X3, reflexes normal. Absent: CN II- XII intact, motor sensory deficit Skin exam: Present: warm, dry, intact, normal color. Absent: rash Course Vital Signs 10/08/23 10/08/23 10/08/23 11:11 13:10 15:59 Temperature 98.5 F Pulse Rate 77 55 L 58 L Respiratory 20 22 16 Rate Blood Pressure 148/79 133/80 148/72 O2 Sat by Pulse 96 98 99 Oximetry EKG Findings - EKG Comments: EKG Findings:: EKG performed at 11: 41 sinus rhythm with a rate of 67 RI 176 QRS 92 QT/QTc 397/413 - EKG Results: EKG: interpreted by ROBERT Medical Decision Making - Medical Decision Making Was pt. sent in by a medical professional or institution (, PA, WHITE SPOOLER, urgent care, hospital, or fpc...) When possible be specific @ -No Did you speak to anyone other than the patient for history (EMS, parent, family, police, friend...)? What history was obtained from this source @ -No Did you review nursing and triage notes (agree or disagree)? Why? @ -I reviewed and agree with nursing and triage notes Were old charts reviewed (outside hosp., previous admission, EMS record, old EKG, old radiological studies, urgent care reports/EKG's, fpc records)? Report findings @ -No old charts were reviewed Differential Diagnosis (chest pain, altered mental status, abdominal pain women, abdominal pain men, vaginal bleeding, weakness, fever, dyspnea, syncope, headache, dizziness, GI bleed, back pain, seizure, CVA, palpatations, mental health, musculoskeletal)? @ -[Differential Weakness: Hypoglycemia, shock, sepsis, hyponatremia, anemia, infection, GA, ETOH, adverse medicine reaction, overdose, stroke, this is not meant to be an all-inclusive list. EKG interpreted by me (3pts min.). @ -As above X-rays interpreted by me (1pt min.). @ - x-ray lumbar spine showing degenerative changes, wedge deformities noted Pelvis x-ray shows degenerative changes no acute fracture CT interpreted by me (1pt min.). @ -None done U/S interpreted by me (1pt. min.). @ -None done What testing was considered but not performed or refused? (CT, X-rays, U/S, labs)? Why? @ -None What meds were considered but not given or refused? Why? @ -None Did you discuss the management of the patient with other professionals (professionals i.e. , PA, WHITE SPOOLER, lab, RT, psych nurse, secondary social studies teacher, cosmetician apprentice, teacher, welfare officer, watch caser)? Give summary @ -Dr. Lyles for admission secondary to unable to ambulate, requiring admission and rehab Was smoking cessation discussed for >3mins.? @ -No Was critical care preformed (if so, how long)? @ -No Were there social determinants of health that impacted care today? How? (Homelessness, low income, unemployed, alcoholism, drug addiction, transportation, low edu. Level, literacy, decrease access to med. care, [facility], rehab)? @ -No Was there de-escalation of care discussed even if they declined (Discuss DNR or withdrawal of care, Hospice)? DNR status @ -No What co-morbidities impacted this encounter? (DM, HTN, Smoking, COPD, CAD, Cancer, CVA, ARF, Chemo, Hep., AIDS, mental health diagnosis, sleep apnea, morbid obesity)? @ -Obesity, chronic pain Was patient admitted / discharged? Hospital course, mention meds given and route, prescriptions, significant lab abnormalities, going to OR and other pertinent info. @ -Admitted patient is unable to ambulate with assistance, laboratory studies not reveal any specific findings patient is having increasing back pain and will require admission for rehab will consult orthopedic spine on-call Dr. Goldberg Undiagnosed new problem with uncertain prognosis? @ -No Drug Therapy requiring intensive monitoring for toxicity (Heparin, Nitro, Insulin, Cardizem)? @ -No Were any procedures done? @ -No Diagnosis/symptom? @ -Back pain, weakness, unable to ambulate Acute, or Chronic, or Acute on Chronic? @ -Acute Uncomplicated (without systemic symptoms) or Complicated (systemic symptoms)? @ -Uncomplicated Side effects of treatment? @ -No Exacerbation, Progression, or Severe Exacerbation? @ -No Poses a threat to life or bodily function? How? (Chest pain, USA, GA, pneumonia, PE, COPD, DKA, ARF, appy, cholecystitis, CVA, Diverticulitis, Homicidal, Suicidal, threat to staff... and all critical care pts) @ -No - Lab Data Result diagrams: 10/08/23 11:34 10/08/23 11:34 Lab Results 10/08/23 10/08/23 10/08/23 Range/Units 11:24 11:34 11:34 WBC 8.0 (3.8-10.6) k/uL RBC 4.71 (3.80-5.40) m/uL Hgb 14.0 (11.4-16.0) gm/dL Hct 41.5 (34.0-46.0) % MCV 88.2 (80.0-100.0) fL MCH 29.8 (25.0-35.0) pg MCHC 33.8 (31.0-37.0) g/dL RDW 13.9 (11.5-15.5) % Plt Count 250 (150-450) k/uL MPV 8.1 Neutrophils % 71 % Lymphocytes % 17 % Monocytes % 8 % Eosinophils % 2 % Basophils % 1 % Neutrophils # 5.6 (1.3-7.7) k/uL Lymphocytes # 1.4 (1.0-4.8) k/uL Monocytes # 0.6 (0-1.0) k/uL Eosinophils # 0.2 (0-0.7) k/uL Basophils # 0.1 (0-0.2) k/uL Sodium 137 (137-145) mmol/L Potassium 3.8 (3.5-5.1) mmol/L Chloride 108 H (98-107) mmol/L Carbon Dioxide 21 L (22-30) mmol/L Anion Gap 8 mmol/L BUN 11 (7-17) mg/dL Creatinine 0.87 (0.52-1.04) mg/dL Est GFR (CKD-EPI)AfAm 80 (>60 ml/min/1.73 sqM) Est GFR (CKD-EPI)NonAf 69 (>60 ml/min/1.73 sqM) Glucose 106 H (74-99) mg/dL Lactic Ac Sepsis Rflx Plasma Lactic Acid [place] 3.0 H* (0.7-2.0) mmol/L Calcium 9.0 (8.4-10.2) mg/dL Magnesium 1.8 (1.6-2.3) mg/dL Total Bilirubin 1.4 H (0.2-1.3) mg/dL AST 27 (14-36) U/L ALT 22 (4-34) U/L Alkaline Phosphatase 114 (38-126) U/L Total Protein 6.6 (6.3-8.2) g/dL Albumin 3.9 (3.5-5.0) g/dL Urine Color Urine Appearance (Clear) Urine pH (5.0-8.0) Ur Specific [place] (1.001-1.035) Urine Protein (Negative) Urine Glucose (UA) (Negative) Urine Ketones (Negative) Urine Blood (Negative) Urine Nitrite (Negative) Urine Bilirubin (Negative) Urine Urobilinogen (<2.0) mg/dL Ur Leukocyte Esterase (Negative) 10/08/23 10/08/23 10/08/23 Range/Units 12:05 13:59 14:38 WBC (3.8-10.6) k/uL RBC (3.80-5.40) m/uL Hgb (11.4-16.0) gm/dL Hct (34.0-46.0) % MCV (80.0-100.0) fL MCH (25.0-35.0) pg MCHC (31.0-37.0) g/dL RDW (11.5-15.5) % Plt Count (150-450) k/uL MPV Neutrophils % % Lymphocytes % % Monocytes % % Eosinophils % % Basophils % % Neutrophils # (1.3-7.7) k/uL Lymphocytes # (1.0-4.8) k/uL Monocytes # (0-1.0) k/uL Eosinophils # (0-0.7) k/uL Basophils # (0-0.2) k/uL Sodium (137-145) mmol/L Potassium (3.5-5.1) mmol/L Chloride (98-107) mmol/L Carbon Dioxide (22-30) mmol/L Anion Gap mmol/L BUN (7-17) mg/dL Creatinine (0.52-1.04) mg/dL Est GFR (CKD-EPI)AfAm (>60 ml/min/1.73 sqM) Est GFR (CKD-EPI)NonAf (>60 ml/min/1.73 sqM) Glucose (74-99) mg/dL Lactic Ac Sepsis Rflx Y Plasma Lactic Acid [place] 1.0 (0.7-2.0) mmol/L Calcium (8.4-10.2) mg/dL Magnesium (1.6-2.3) mg/dL Total Bilirubin (0.2-1.3) mg/dL AST (14-36) U/L ALT (4-34) U/L Alkaline Phosphatase (38-126) U/L Total Protein (6.3-8.2) g/dL Albumin (3.5-5.0) g/dL Urine Color Colorless Urine Appearance Clear (Clear) Urine pH 5.0 (5.0-8.0) Ur Specific [place] 1.011 (1.001-1.035) Urine Protein Negative (Negative) Urine Glucose (UA) Negative (Negative) Urine Ketones Negative (Negative) Urine Blood Negative (Negative) Urine Nitrite Negative (Negative) Urine Bilirubin Negative (Negative) Urine Urobilinogen <2.0 (<2.0) mg/dL Ur Leukocyte Esterase Negative (Negative) Disposition Clinical Impression: Fall, Unable to ambulate, Back pain Disposition: ADMITTED IP TO THIS HOSP Condition: Fair Time of Disposition: 15:39
[2023-10-08] MEDS: ONDANSETRON 4 MG/2 ML VIAL IVP STA (13:03)
[2023-10-08] MEDS: HYDROmorphone 0.5 MG/0.5 ML SYRINGE IVP STA (13:03)
--- NOTE | 2023-10-08 13:52 | XR ---
EXAMINATION TYPE: XR lumbar spine 2 or 3V DATE OF EXAM: 10/08/2023 1:05 PM CLINICAL INDICATION:Female, 68 years old with history of pain; [facility] COMPARISON: 06/25/2020 TECHNIQUE: XR lumbar spine 2 or 3V - Frontal, lateral and coned in L5-S1 lateral views of the spine. FINDINGS: Multiple vertebral bodies demonstrate wedging which is not significantly changed from 2020. No evidence of any acute osseous pathology. No evidence of loss of vertebral body height is seen. T here is normal alignment of the lumbar vertebral bodies. Mild scattered disc space narrowing. Multile ramirez marginal osteophyte formation throughout the visualized spine. There is facet joint arthropathy t hroughout the spine. Scattered at least mild neural foraminal stenosis. IMPRESSION: 1. Wedging of multiple vertebral body is not significantly changed from prior in 2019 2. Moderate to severe multilevel disc degeneration.
--- NOTE | 2023-10-08 13:52 | XR ---
EXAMINATION TYPE: XR pelvis AP view DATE OF EXAM: 10/08/2023 1:05 PM CLINICAL INDICATION:Female, 68 years old with history of pain; [facility] COMPARISON: None TECHNIQUE: The pelvis was examined in a single projection. FINDINGS: There is no evidence of fracture or dislocation. There is no soft tissue abnormality. No a bnormal calcifications are present. The spine appears intact. The hips appear intact. Osteophyte form ation of the superior acetabulum bilaterally with mild joint space narrowing. IMPRESSION: No acute osseous pathology. Mild degeneration changes of the hip.
[2023-10-08 14:11] LABS: Appearance,Urine Clear (Clear); Bilirubin,Urine Negative (Negative); Blood,Urine Negative (Negative); Color,Urine Colorless; Glucose,Urine (UA) Negative (Negative); Ketones,Urine Negative (Negative); Leukocyte Esterase,Urine Negative (Negative); Nitrite,Urine Negative (Negative); Protein,Urine Negative (Negative); Specific Gravity,Urine 1.011 (1.001-1.035); Urobilinogen,Urine <2.0 mg/dL (<2.0)
[2023-10-08] MEDS ORDERED: NALOXONE 0.4 MG/ML 1 ML VIAL IV PRN (15:36)
[2023-10-08] MEDS ORDERED: ONDANSETRON 4 MG/2 ML VIAL IVP PRN (15:36)
[2023-10-08] MEDS: DEXAMETHASONE SOD PHOSPHATE 10 MG/ML 1 ML VIAL IVP STA (15:56)
[2023-10-08] MEDS ORDERED: ACETAMINOPHEN TAB 325 MG TAB PO PRN (16:44)
--- NOTE | 2023-10-08 16:46 | P.HPIM ---
History of Present Illness H&P Date: 10/08/23 Patient is a 68-year-old female with history of degenerative disc disease, hypertension, dyslipidemia, GERD, paroxysmal atrial fibrillation on warfarin presenting with lower extremity weakness, bilateral. She claims that she was in her usual state of health as of yesterday. She started experiencing increased lower back pain with pain radiating down her right leg. She ended up taking Z anaflex and gabapentin with some relief. When she woke up this morning she had difficulty moving her left leg. Weakness is more prominent when she stands up. She denies any numbness or tingling in bilateral lower extremities. She denies any saddle anesthesia or loss of bowel or bladder control. She denies any fevers, chills, chest pain, shortness of breath, abdominal pain, nausea, vomiting, urinary or bowel complaints. She denies any recent travel history. She denies any smoking, alcohol use or illicit drug use. She normally ambulates using a walker. In the ED, temperature was 98.5, pulse 77, respiratory rate 20, blood pressure 148/79, saturating 98% on room air. WBC 8, hemoglobin 14, platelet 250, bicarb 21, anion gap 8, creatinine 0.87, lactate 3, total bili 1.4, AST 27, ALT 22, ALP 114, urinalysis negative. EKG shows sinus rhythm with occasional PACs with none specific ST-T wave changes. Lumbar x-ray shows wedging of multiple vertebral body not significantly changed from prior in 2019, moderate to severe multilevel disc degeneration. Pelvic x-ray shows no acute osseous pathology, mild degeneration changes of the hip. Patient was given IV fluids which improved her lactate. Started on pain medications as well as consulted Ortho spine surgery for back pain as potential cause for lower extremity weakness. Physical therapy also consulted. Pertinent positives and negatives as discussed in HPI, a complete review of systems was performed and all other systems are negative. Patient seen and examined at bedside. Vital signs reviewed General: nontoxic, no distress, appears at stated age, morbidly obese Derm: warm, dry, ulcer on anterior right lower extremity, with minimal surrounding erythema Head: atraumatic, normocephalic, symmetric Eyes: EOMI, no lid lag, anicteric sclera, pupils equal round reactive to light ENT: Nose and ears atraumatic Neck: No thyromegaly, supple Mouth: no lip lesion, mucus membranes moist Cardiovascular: S1S2 reg, no murmur, no edema Lungs: clear to auscultation bilateral, no rhonchi, no rales, no wheeze, no accessory muscle use Abdominal: soft, nontender to palpation, no guarding, no appreciable organomegaly Ext: Strength 3/5 in right lower extremity, 4/5 in the left lower extremity, intact sensation bilateral Neuro: CN II-XII grossly intact Psych: Alert, oriented, appropriate affect Assessment/Plan: Active: Acute on chronic lower extremity weakness Acute on chronic back pain Multilevel degenerative disc disease Chronic debility - Ortho spine surgery consulted - Pain control with oral Mertens as needed, IV Dilaudid as needed - Senna scheduled - PT consult Paroxysmal atrial fibrillation -Continue warfarin, pharmacy to dose, monitor INR Resolved: Lactic acidosis Chronic: Hypertension Dyslipidemia GERD Restart home meds when reconciled by pharmacy. The patient is admitted with an anticipated less than 2 midnight stay as observation status for evaluation of weakness. Surrogate decision-maker: Significant other CODE STATUS: Full code DVT prophylaxis: Coumadin Anticipated discharge date: Pending clinical course Anticipated discharge place: Pending clinical course A total of 55 minutes was spent on the care of this complex patient more than 50% of the time was spent in counseling and care coordination. 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 Rt breast lumpectomy - negative for cancer per pt. migraines, irregular heartbeat, varicose veins, poor circulation- swelling lower legs and feet, cerebral palsy-uses cane, occipital neuralgia, optic neuritis, veneers front teeth, cardiac stress test, uses cpap, cerebral palsy. History of Any Multi-Drug Resistant Organisms: None Reported Past Surgical History: Cholecystectomy, Heart Catheterization, Hysterectomy, Tonsillectomy Additional Past Surgical History / Comment(s): Carlos cataract, benign carotid tumor- removed,cervical discectomy with fusion, R breast lumpectomy neg CA, mo rton neuromas carlos feet, steroid injections into carlos shoulders,rt hip ,cervical spine last inject 05/14 Past Anesthesia/Blood Transfusion Reactions: Previous Problems w/ Anesthesia, Motion Sickness, Postoperative Nausea & Vomiting (PONV) Additional Past Anesthesia/Blood Transfusion Reaction / Comment(s): diff coming out of anesthesia Past Psychological History: Anxiety, Depression Smoking Status: Never smoker Past Alcohol Use History: None Reported Past Drug Use History: None Reported - Past Family History Mother Family Medical History: Hypertension, Osteoarthritis (OA) Additional Family Medical History / Comment(s): neuropathy, carpal tunnel Father Family Medical History: Hypertension Medications and Allergies Home Medications Medication Instructions Recorded Confirmed Type Pantoprazole Sodium [Protonix] 40 mg PO BID 01/03/15 11/09/21 History Cholecalciferol [Vitamin D3 (25 75 unit PO DAILY 04/02/16 11/09/21 History Mcg = 1000 Iu)] Gabapentin [Neurontin] 300 mg PO AC-TID 04/02/16 11/09/21 History Naproxen [Naprosyn] 500 mg PO AC-BID@1200,1800 07/05/18 11/09/21 History Atorvastatin [Lipitor] 80 mg PO AC-SUPPER 06/25/20 11/09/21 History Citalopram Hydrobromide 10 mg PO DAILY 06/25/20 11/09/21 History [Citalopram HBr] HYDROcodone/APAP 7.5-325MG [Mertens 1 tab PO DAILY PRN 04/13/21 11/09/21 History 7.5-325] Loperamide [Imodium] 2 mg PO QID PRN 04/13/21 11/09/21 History Mupirocin 2% Oint [Bactroban 2% 1 applic TOPICAL BID 04/13/21 11/09/21 History Oint] lisinopriL [Prinivil] 10 mg PO DAILY 04/13/21 11/09/21 History rOPINIRole HCL [Requip] 1 mg PO HS 04/13/21 11/09/21 History tiZANidine [Zanaflex] 4 mg PO HS 04/13/21 11/09/21 History Flecainide [Tambocor] 50 mg PO Q12HR 30 Days #60 tab 04/15/21 11/09/21 Rx Metoprolol Succinate (ER) [Toprol 25 mg PO DAILY 30 Days #30 tablet 04/15/21 11/09/21 Rx XL] Warfarin [Coumadin] 7.5 mg PO DAILY 10/28/21 11/09/21 History Celecoxib [CeleBREX] 50 mg PO DAILY 11/09/21 11/09/21 History Allergies Allergy/AdvReac Type Severity Reaction Status Date / Time iodine Allergy Rash/Hives, Verified 10/08/23 11:19 itching latex Allergy "redness" Verified 10/08/23 11:19 Physical Exam Vitals: Vital Signs Temp Pulse Resp BP Pulse Ox 10/08/23 15:59 58 L 16 148/72 99 10/08/23 13:10 55 L 22 133/80 98 10/08/23 11:11 98.5 F 77 20 148/79 96 Intake and Output 10/08/23 10/08/23 10/08/23 06:59 14:59 22:59 Other: Weight 172.365 kg Results CBC & Chem 7: 10/08/23 11:34 10/08/23 11:34 Labs: Abnormal Lab Results - Last 24 Hours (Table) 10/08/23 10/08/23 Range/Units 11:24 11:34 Chloride 108 H (98-107) mmol/L Carbon Dioxide 21 L (22-30) mmol/L Glucose 106 H (74-99) mg/dL Plasma Lactic Acid Rocael 3.0 H* (0.7-2.0) mmol/L Total Bilirubin 1.4 H (0.2-1.3) mg/dL
[2023-10-08 17:49] LABS: INR 3.5 (<1.2); Prothrombin Time 34.5 sec (10.0-12.5)
[2023-10-08] MEDS: HYDROmorphone 0.5 MG/0.5 ML SYRINGE IVP PRN (18:45)
[2023-10-08] MEDS: WARFARIN 1 MG TAB PO ONE (18:47)
[2023-10-08] MEDS: ATORVASTATIN 80 MG TAB PO SCH (22:06)
[2023-10-08] MEDS: FLECAINIDE 50 MG TAB PO SCH (22:07)
[2023-10-08] MEDS: HYDROcodone/APAP 5-325MG 1 EACH TAB PO PRN (22:07)
[2023-10-08] MEDS: PANTOPRAZOLE 40 MG TABLET PO SCH (22:07)
[2023-10-08] MEDS: tiZANidine 4 MG TAB PO SCH (22:07)
[2023-10-09] MEDS: lisinopriL 10 MG TAB PO SCH (07:51)
[2023-10-09] MEDS: METOPROLOL SUCCINATE (ER) 25 MG TAB.ER.24H PO SCH (07:52)
[2023-10-09] MEDS: SENNOSIDES 8.6 MG TAB PO SCH (07:52)
[2023-10-09 08:20] LABS: INR 3.6 (<1.2); Prothrombin Time 35.6 sec (10.0-12.5)
[2023-10-09 09:52] LABS: ALT 23 U/L (4-34); AST 26 U/L (14-36); African American GFR (CKD) 80 (>60 ml/min/1.73 sqM); Albumin 3.7 g/dL (3.5-5.0); Albumin/Globulin Ratio 1.4; Alkaline Phosphatase 119 U/L (38-126); Anion Gap 8 mmol/L; Blood Urea Nitrogen 17 mg/dL (7-17); Calcium 9.5 mg/dL (8.4-10.2); Carbon Dioxide 24 mmol/L (22-30); Chloride 109 mmol/L (98-107); Globulin 2.7 g/dL; Glucose 157 mg/dL (74-99); Non-African American GFR(CKD) 69 (>60 ml/min/1.73 sqM); Potassium 4.3 mmol/L (3.5-5.1); Sodium 141 mmol/L (137-145); Total Protein 6.4 g/dL (6.3-8.2)
--- NOTE | 2023-10-09 10:25 | P.PN ---
Subjective Progress Note Date: 10/09/23 Hospital Course: 68-year-old female with history of degenerative disc disease, hypertension, dy slipidemia, GERD, paroxysmal atrial fibrillation on warfarin presenting with lower extremity weakness, bilateral. In the ED, temperature was 98.5, pulse 77, respiratory rate 20, blood pressure 148/79, saturating 98% on room air. WBC 8, hemoglobin 14, platelet 250, bicarb 21, anion gap 8, creatinine 0.87, lactate 3, total bili 1.4, AST 27, ALT 22, ALP 114, urinalysis negative. EKG shows sinus rhythm with occasional PACs with none specific ST-T wave changes. Lumbar x-ray shows wedging of multiple vertebral body not significantly changed from prior in 2019, moderate to severe multilevel disc degeneration. Pelvic x-ray shows no acute osseous pathology, mild degeneration changes of the hip. Patient was given IV fluids which improved her lactate. Started on pain medications as well as consulted Ortho spine surgery for back pain as potential cause for lower extremity weakness. Physical therapy also consulted. Subjective: Seen and examined at bedside. No acute events overnight. Still has not been able to get out of the bed. Still has back pain radiating down to her right leg. Denies any pain in the left lower extremity. Pertinent positives and negatives as discussed above, a complete review of systems was performed and all other systems are negative. Vitals Signs Reviewed. General: nontoxic, no distress, appears at stated age, morbidly obese Derm: warm, dry, ulcer on anterior right lower extremity, with minimal surrounding erythema Head: atraumatic, normocephalic, symmetric Eyes: EOMI, no lid lag, anicteric sclera, pupils equal round reactive to light ENT: Nose and ears atraumatic Neck: No thyromegaly, supple Mouth: no lip lesion, mucus membranes moist Cardiovascular: S1S2 reg, no murmur, no edema Lungs: clear to auscultation bilateral, no rhonchi, no rales, no wheeze, no accessory muscle use Abdominal: soft, nontender to palpation, no guarding, no appreciable organomegaly Ext: Strength 3/5 in right lower extremity, 4/5 in the left lower extremity, int act sensation bilateral Neuro: CN II-XII grossly intact Psych: Alert, oriented, appropriate affect Data Reviewed Today: Pertinent Labs: Bicarb 24, creatinine 0.87, blood sugars 157, total bili 1, INR 3.6 Imaging: No new imaging Assessment and Plan: Active: Acute on chronic lower extremity weakness Acute on chronic back pain Multilevel degenerative disc disease Chronic debility - Ortho spine surgery consulted, patient may need back MRI - Pain control with oral Orefield as needed, IV Dilaudid as needed - Senna scheduled - PT consult Paroxysmal atrial fibrillation Supratherapeutic INR -Continue warfarin, pharmacy to dose, monitor INR - No active bleeding Resolved: Lactic acidosis Chronic: Hypertension Dyslipidemia GERD DVT ppx: Coumadin Code status: Full code Anticipated discharge place: Pending clinical course Anticipated discharge time: Pending clinical course Objective - Vital Signs Vital signs: Vital Signs Temp 98.1 F 10/09/23 07:46 Pulse 60 10/09/23 07:46 Resp 17 10/09/23 07:46 BP 128/68 10/09/23 07:46 Pulse Ox 97 10/09/23 07:46 FiO2 Intake & Output 10/08/23 10/09/23 10/09/23 18:59 06:59 18:59 Output Total 500 200 Balance -500 -200 Weight 172.365 kg Output: Urine 500 200 Other: Voiding Method External Catheter External Catheter - Labs CBC & Chem 7: 10/08/23 11:34 10/09/23 07:44 Labs: Abnormal Lab Results - Last 24 Hours (Table) 10/08/23 10/08/23 10/08/23 Range/Units 11:24 11:34 17:28 PT 34.5 H (10.0-12.5) sec INR 3.5 H (<1.2) Chloride 108 H (98-107) mmol/L Carbon Dioxide 21 L (22-30) mmol/L Glucose 106 H (74-99) mg/dL Plasma Lactic Acid Rocael 3.0 H* (0.7-2.0) mmol/L Total Bilirubin 1.4 H (0.2-1.3) mg/dL 10/09/23 10/09/23 Range/Units 07:44 07:45 PT 35.6 H (10.0-12.5) sec INR 3.6 H (<1.2) Chloride 109 H (98-107) mmol/L Carbon Dioxide (22-30) mmol/L Glucose 157 H (74-99) mg/dL Plasma Lactic Acid Rocael (0.7-2.0) mmol/L Total Bilirubin (0.2-1.3) mg/dL
--- NOTE | 2023-10-09 11:56 | P.CNOR ---
History of Present Illness - [facility] Consult date: 10/09/23 Requesting physician: Elias Moreira Consult reason: other (Chronic low back pain and Bilateral lower extremity radi culopathy and weakness) History of present illness: History of Presenting Illness Patient is a Pleasant 68-year-old female who presented to the ER due to inability to ambulate and lower extremity radiculopathy and weakness. Patient reports that she was attempting to get out of bed in the morning on 10/08/2023 and had severe pain of the right lower extremity and loss of function to the left lower extremity and had slid from her bed. She was unable to get herself up and states that she called for lift assist but was extremely weak so EMS brought her in for evaluation. Patient is on Coumadin due to a-fib, she denies hitting h er head or having LOC. Patient reports that she does live alone and is normally ambulatory with a walker. Patient does have a medical history of Asthma, Chest Pain / Angina, Heart Failure, Fibromyalgia, GERD/Reflux, Hyperlipidemia, Hypertension, Musculoskeletal Disorder, Cerebral Palsy, Osteoarthritis (OA), Pneumonia, Sleep Apnea, utilizes CPAP. She does have an orthopedic history of left ankle posterior distal fibular and tibial fractures in which she was seen and treated for in our office. She also has history of C3-C6 ACDF, Bilateral knee replacement, and Chronic low back pain. Patient seen and examined this morning. Patient is resting comfortably in bed. She states she has not been up since admission. Patient states overall she does not have any increased low back pain at this time. She reports increased pain into the right lower extremity that radiates from the lateral right hip into the right anterior and lateral thigh to just below the knee with weakness. She denies any pain into the left lower extremity, only numbness into the left lower extremity when standing. Patient states while laying in bed her left lower extremity is not bothering her and she has full sensation. Patient states she has followed with pain management prior for her lumbar and cervical spine. She states that she was taking gabapentin and had discontinued on her own due to reading possible side effects and family concern. Patient reports that she has history with incontinence of bladder. Patient states she is looking forward to getting up with PT to evaluate her mobility status. Review of Systems Pertinent positives and negatives as discussed in HPI, a complete review of systems was performed and all other systems are negative. Physical Examination General: The patient is awake and alert, in no acute distress Skin: Skin is warm and dry with no obvious rashes or lesions. Eye: Pupils are equal, round and reactive to light, extra-ocular movements are intact; there is normal conjunctiva bilaterally. Neck: The neck is supple, there is no tenderness and ROM intact. Cardiovascular: There is a regular rate and rhythm. No murmur, rub or gallop is appreciated. Respiratory: Lungs are clear to auscultation, respirations are non-labored, breath sounds are equal. Gastrointestinal: Soft, non-distended, non-tender abdomen. Back: There is no tenderness to palpation in the midline, paralumbar, parathoracic or buttocks region. There is no obvious deformity. Musculoskeletal: ROM limited secondary to pain and stiffness from surgical procedure. Shoulder abduction 5/5, elbow flexors 5/5, wrist dorsiflexors 5/5. finger abductor 5/5, email campaign specialist 5/5, hip flexor 5/5, knee flexor 5/5, ankle dorsiflexor 5/5, ankle plantarflexion 5/5 and extensor hallucis 5/5. Neurological: CN 2-12 intact. There are no obvious motor or sensory deficits. Movement and coordination equal and intact. Sensory exam to light touch intact C5-T1 and intact from L2-S1. Reflexes 2/4 in bilateral upper and lower extremities. Negative Hoffmans, babinski, and clonus signs. Psychiatric: Cooperative, appropriate mood & affect, normal judgment. Assessment and Plan Lumbar x-ray shows wedging of multiple vertebral body not significantly changed from prior in 2020, moderate to severe multilevel disc degeneration. Pelvic x- ray shows no acute osseous pathology, mild degeneration changes of the hip. 1. Lumbar spondylosis 2. Chronic L1-L2 compression fractures 3. Grade 1 anterolithesis L4-L5, L5-S1 4. Grade 1 retrolithesis L1-L2, L2-L3 5. Degenerative disc disease 6. Bilateral lower extremity radiculopathy 7. Bilateral lower extremity weakness 8. Multiple Complex comorbidities - Appreciate medical management - MRI of the lumbar spine has been ordered for further evaluation - Pain management - Continue with [place] and Tizanidine, Recommend trial of IV steroids and Gabapentin. - GI prophylaxis - per medical - DVT prophylaxis - Coumadin - PT/OT - weightbearing as tolerated with a walker as needed. - Appreciate consult I reviewed and discussed this case with my attending Dr. Goldberg, whom has reviewed this chart and films and is in agreement with assessment and plan of care as outlined above. I have personally seen and examined the patient, performed the documentation and the assessment and plan as written. Number of minutes spent on the visit: 35m. 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 Rt breast lumpectomy - negative for cancer per pt. migraines, irregular heartbeat, varicose veins, poor circulation- swelling lower legs and feet, cerebral palsy-uses cane, occipital neuralgia, optic neuritis, veneers front teeth, cardiac stress test, uses cpap, cerebral palsy. History of Any Multi-Drug Resistant Organisms: None Reported Past Surgical History: Cholecystectomy, Heart Catheterization, Hysterectomy, Tonsillectomy Additional Past Surgical History / Comment(s): Carlos cataract, benign carotid tumor- removed,cervical discectomy with fusion, R breast lumpectomy neg CA, ocx neuromas carlos feet, steroid injections into carlos shoulders,rt hip ,cervical spine last inject 05/14 Past Anesthesia/Blood Transfusion Reactions: Previous Problems w/ Anesthesia, Motion Sickness, Postoperative Nausea & Vomiting (PONV) Additional Past Anesthesia/Blood Transfusion Reaction / Comm: diff coming out of anesthesia Past Psychological History: Anxiety, Depression Additional Psychological History / Comment(s): lives alone, uses cane when up also has a rollator Smoking Status: Never smoker Past Alcohol Use History: None Reported Past Drug Use History: None Reported - Past Family History Mother Family Medical History: Hypertension, Osteoarthritis (OA) Additional Family Medical History / Comment(s): neuropathy, carpal tunnel Father Family Medical History: Hypertension Medications and Allergies Home Medications Medication Instructions Recorded Confirmed Type Pantoprazole Sodium [Protonix] 40 mg PO BID 01/03/15 10/08/23 History tiZANidine [Zanaflex] 4 mg PO BID 04/13/21 10/08/23 History Flecainide [Tambocor] 50 mg PO Q12HR 30 Days #60 tab 04/15/21 10/08/23 Rx Warfarin [Coumadin] 7.5 mg PO DIRECTED 10/28/21 10/08/23 History Atorvastatin [Lipitor] 80 mg PO HS 10/08/23 10/08/23 History Celecoxib [CeleBREX] 200 mg PO DIRECTED 10/08/23 10/08/23 History Cholecalciferol [Vitamin D3 (25 50 mcg PO DAILY 10/08/23 10/08/23 History Mcg = 1000 Iu)] Metoprolol Succinate (ER) [Toprol 25 mg PO DIRECTED 10/08/23 10/08/23 History XL] Nitroglycerin Sl Tabs [Nitrostat] 0.4 mg SUBLINGUAL Q5M PRN 10/08/23 10/08/23 History Oxybutynin Chloride [oxyBUTYnin 15 mg PO HS 10/08/23 10/08/23 History chloride ER] Warfarin Sodium 6 mg PO MOTUWETHFR 10/08/23 10/08/23 History lisinopriL [Zestril] 30 mg PO DAILY 10/08/23 10/08/23 History rOPINIRole HCL [Requip] 5 mg PO HS 10/08/23 10/08/23 History traMADol HCL 50 mg PO TID PRN 10/08/23 10/08/23 History Allergies Allergy/AdvReac Type Severity Reaction Status Date / Time iodine Allergy Rash/Hives, Verified 10/08/23 17:29 itching latex Allergy "redness" Verified 10/08/23 17:29 Results - Labs Labs: Abnormal Lab Results - Last 24 Hours (Table) 10/08/23 10/08/23 10/08/23 Range/Units 11:24 11:34 17:28 PT 34.5 H (10.0-12.5) sec INR 3.5 H (<1.2) Chloride 108 H (98-107) mmol/L Carbon Dioxide 21 L (22-30) mmol/L Glucose 106 H (74-99) mg/dL Plasma Lactic Acid Rocael 3.0 H* (0.7-2.0) mmol/L Total Bilirubin 1.4 H (0.2-1.3) mg/dL 10/09/23 10/09/23 Range/Units 07:44 07:45 PT 35.6 H (10.0-12.5) sec INR 3.6 H (<1.2) Chloride 109 H (98-107) mmol/L Carbon Dioxide (22-30) mmol/L Glucose 157 H (74-99) mg/dL Plasma Lactic Acid Rocael (0.7-2.0) mmol/L Total Bilirubin (0.2-1.3) mg/dL H & H 10/08/23 Range/Units 11:34 Hgb 14.0 (11.4-16.0) gm/dL Hct 41.5 (34.0-46.0) % Coagulation 10/08/23 10/09/23 Range/Units 17:28 07:45 INR 3.5 H 3.6 H (<1.2) Result Diagrams: 10/08/23 11:34 10/09/23 07:44
[2023-10-09] MEDS ORDERED: DEXAMETHASONE SOD PHOSPHATE 4 MG/ML 1 ML VIAL IVP PRN (12:03)
[2023-10-09] MEDS: DEXAMETHASONE SOD PHOSPHATE 4 MG/ML 1 ML VIAL IVP SCH (12:29)
[2023-10-09] MEDS: CEPHALEXIN 500 MG CAP PO SCH (12:29)
[2023-10-09] MEDS: GABAPENTIN 300 MG CAP PO SCH (12:29)
[2023-10-09] MEDS: WARFARIN 0.5 MG TAB PO ONE (18:26)
[2023-10-10 03:04] VITALS: RESP 17
[2023-10-10 04:27] LABS: INR 3.1 (<1.2); Prothrombin Time 30.4 sec (10.0-12.5)
--- NOTE | 2023-10-10 09:00 | P.PN ---
Subjective Progress Note Date: 10/10/23 Principal diagnosis: Chronic low back pain Bilateral lower extremity radiculopathy and weakness Patient seen and examined this morning. Patient is resting comfortably in bed. She does report generalized fatigue. Current heart rate is recorded 36 bpm. Staff attempted to assist patient at bedside last night and patient declined due to weakness. IV Decadron was initiated yesterday, patient reports that she does feel some improvement in her symptoms. She continues to have complaint of aching pain that radiates from the Lateral right hip across the anterior right thigh to just below the knee. MRI has been scheduled for 12:15 today. Continue to encourage patient to work with physical therapy if medically stable. Further recommendations will follow. Objective - Vital Signs Vital signs: Vital Signs Temp 97.7 F 10/10/23 06:58 Pulse 35 L 10/10/23 06:58 Resp 17 10/10/23 06:58 BP 122/66 10/10/23 06:58 Pulse Ox 94 L 10/10/23 06:58 FiO2 Intake & Output 10/09/23 10/10/23 10/10/23 18:59 06:59 18:59 Output Total 870 300 Balance -870 -300 Output: Urine 870 300 Other: Voiding Method External Catheter External Catheter # Voids 3 - Exam General: The patient is awake and alert, in no acute distress Skin: Skin is warm and dry with no obvious rashes or lesions. Eye: Pupils are equal, round and reactive to light, extra-ocular movements are intact; there is normal conjunctiva bilaterally. Neck: The neck is supple, there is no tenderness and ROM intact. Cardiovascular: There is an irregular rate. No murmur, rub or gallop is appreciated. Respiratory: Respirations are non-labored, breath sounds are equal. Gastrointestinal: Soft, non-distended, non-tender abdomen. Back: There is no tenderness to palpation in the midline, paralumbar, parathoracic or buttocks region. There is no obvious deformity. Musculoskeletal: ROM limited secondary to pain. Bilateral Shoulder abduction 4/5, elbow flexors 4/5, wrist dorsiflexors 4/5. fin rachell abductor 4/5, almond cutting machine tender 4/5. Left hip flexor 4/5, knee flexor 4/5, ankle dorsiflexor 4/5, ankle plantarflexion 4/5 and extensor hallucis 4/5. Right hip flexor 4-/5, knee flexor 4-/5, ankle dorsiflexor 4-/5, ankle plan tarflexion 4-/5 and extensor hallucis 4-/5 Neurological: CN 2-12 intact. There are no obvious motor or sensory deficits. Movement and coordination equal and intact. Sensory exam to light touch intact C5-T1 and intact from L2-S1. Reflexes 2/4 in bilateral upper and lower extremities. Negative Hoffmans, babinski, and clonus signs. Psychiatric: Cooperative, appropriate mood & affect, normal judgment. - Labs CBC & Chem 7: 10/08/23 11:34 10/09/23 07:44 Labs: Abnormal Lab Results - Last 24 Hours (Table) 10/09/23 10/09/23 10/10/23 Range/Units 07:44 07:45 03:19 PT 35.6 H 30.4 H (10.0-12.5) sec INR 3.6 H 3.1 H (<1.2) Chloride 109 H (98-107) mmol/L Glucose 157 H (74-99) mg/dL Assessment and Plan Assessment: 1. Lumbar spondylosis 2. Chronic L1-L2 compression fractures 3. Grade 1 anterolithesis L4-L5, L5-S1 4. Grade 1 retrolithesis L1-L2, L2-L3 5. Degenerative disc disease 6. Bilateral lower extremity radiculopathy 7. Bilateral lower extremity weakness 8. Multiple Complex comorbidities Plan: - Appreciate medical management - MRI of the lumbar spine has been scheduled for 1215 today for further evaluation - Pain management - Continue with [place] and Tizanidine, IV Decadron and Gabapentin. - GI prophylaxis - per medical - DVT prophylaxis - Coumadin - PT/OT - weightbearing as tolerated with a walker as needed. - Appreciate consult I reviewed and discussed this case with my attending Dr. Goldberg, whom has reviewed this chart and films and is in agreement with assessment and plan of ca re as outlined above. I have personally seen and examined the patient, performed the documentation and the assessment and plan as written. Number of minutes spent on the visit: 35m.
[2023-10-10] MEDS ORDERED: ARTIFICIAL TEARS-HYPROMELLOSE DROPS 15 ML BTL LEFT EYE SCH (10:00)
[2023-10-10] MEDS: diazePAM 5 MG TAB PO ONE (11:36)
--- NOTE | 2023-10-10 14:26 | MR ---
EXAMINATION TYPE: MR lumbar spine wo con DATE OF EXAM: 10/10/2023 COMPARISON: None HISTORY: BLE radiculopathy and weakness CONTRAST: 0 mL intravenous Gadavist. TECHNIQUE: Multiplanar, multisequence images of the lumbar spine were acquired. FINDINGS: L5-S1: No significant disc bulge or disc herniation. No spinal canal stenosis. Disc desiccation and mild narrowing of disc height is present. Facet hypertrophy is present. This mass impingement on the right foramen.. L4-L5: No significant disc bulge or disc herniation. No spinal canal stenosis. Moderate right and m ild left foraminal stenosis is present. Facet hypertrophy is present. Ligamentum flavum laxity is pr esent with mild posterior lateral thecal sac compression. No stenosis is evident.. L3-L4: No significant disc bulge or disc herniation. No spinal canal stenosis. Foraminal narrowing is present. Facet hypertrophy is present without stenosis.. L2-L3: There is a large right paracentral and right lateral disc herniation with moderate anterior th ecal sac compression. This is contributing to right foraminal severe stenosis. Correlate with radicul ar symptoms. Left foramen is patent. L1-L2: There is loss of disc height this level. Some endplate spurring is mild posterior sac contact. No spinal canal stenosis is present with mild bilateral foraminal narrowing is present. T12-L1: There is loss of disc height at this level. Modic type II degenerative changes along the ante rior endplates. Mild disc bulge is present. This appears to have some cord contact. Some spinal canal narrowing may be present. IMPRESSION: 1. Broad-based disc bulge at T12-L1 with loss of disc height. Moderate anterior thecal sac compressio n is present. This may have cord contact some canal narrowing. Correlate with symptoms. 2. Large right paracentral disc herniation L2-3 with extension into the foramen. Correlate with right radicular symptoms. 3. Moderate foraminal stenosis lower lumbar spine as discussed above.
--- NOTE | 2023-10-10 14:53 | P.PN ---
Subjective Progress Note Date: 10/10/23 Hospital course: Patient is a very pleasant 68-year-old female with a past medical history of degenerative disc disease, hypertension, dyslipidemia, GERD, and paroxysmal atrial fibrillation on warfarin. She presented to the emergency department on 10/08/2023 with a chief complaint of bilateral lower extremity weakness. Patient reported she was in her usual state of health and ambulatory until 10/07/2023 when she began experiencing increased lower back pain with pain radiating down her right leg. Patient reportedly took a Zanaflex and gabapentin with some re lief and upon awakening had difficulty moving her left leg with significant weakness to bilateral lower extremities upon standing. She denies experiencing any numbness, tingling, saddle anesthesia or experiencing any involuntary loss of bowel or bladder. She underwent evaluation in the emergency department. Upon arrival vital signs as follows blood pressure 148/79, heart rate 77, respiratory rate 20, temp 98.5 F and SpO2 of 96% on 2 L. EKG was completed showing normal sinus rhythm with occasional PAC. X-ray lumbar spine showing wedging of multiple vertebral body and moderate to severe multilevel disc degeneration. Pelvic x-ray was completed negative for acute osseous pathology showing mild degenerative changes of the hip. Patient was admitted under our services with consultation to orthopedic surgery. Physical exam: Patient seen and fully evaluated at bedside this morning. She was resting comfortably in bed. Patient reports continued overall weakness in bilateral lower extremities. She denies having any headache, lightheadedness, dizziness, chest pain, palpitations, shortness of breath, or experiencing any numbness/tingling in her extremities. Vital signs reviewed and stable. General: Nontoxic, no distress and appears stated age. Derm: Skin warm and dry, normal coloration for ethnicity. Head: Atraumatic, normocephalic and symmetric. Eyes: EOMs intact, no lid lag, and anicteric sclera Mouth: no lip lesions, mucus membranes moist Cardiovascular: regular rate and rhythm with normal S1S2, no murmur, positive posterior tibial pulses bilaterally, and cap refill < 2 seconds. Lungs: Respirations even, regular, and unlabored on room air. Lungs CTA bilaterally, no rhonchi, no rales, no wheezing, and no accessory muscle usage. Abdominal: soft, nontender to palpation, no guarding, no appreciable organomegaly Ext: ROM intact. No gross muscle atrophy, no edema, no contractures Neuro: Speech clear, face symmetrical and CN II-XII grossly intact with no noted focal neuro deficits Psych: Alert and oriented to person, place, time, and situation. Appropriate and pleasant affect. Assessment and Plan of Care: Acute on chronic lower extremity weakness resulting in inability to ambulate Acute on chronic lower back pain Multilevel degenerative disc disease Chronic debility secondary to above along with multiple underlying comorbidities -Ortho spine surgery following, ordered MRI lumbar spine -Pain control with oral Tylenol 650 mg p.o. every 6 hours as needed for mild pain, [place] 5-325 mg tablets every 6 hours as needed for moderate pain and Dilaudid 0.5 mg IVP every 3 hours as needed for severe pain -Senna scheduled -PT consulted, recommending SNF placement. Order placed for inpatient admission as patient requires 3 night hospitalization per insurance requirements Paroxysmal atrial fibrillation Supratherapeutic INR Asymptomatic bradycardia -Continue flecainide 50 mg every 12 hours and metoprolol succinate 25 mg daily. Continue anticoagulation with warfarin, pharmacy to dose for goal INR of 2-3, monitor INR daily -No active bleeding. INR 3.1 this morning. Lactic acidosis. Resolved. Hypertension. Continue daily medication regimen with lisinopril 30 mg daily and metoprolol 25 mg daily. Dyslipidemia. Continue daily medication regimen with atorvastatin 80 mg nightly. GERD. Continue Protonix 40 mg twice daily. Data and imaging reviewed: Morning labs reviewed. INR remains supratherapeutic at 3.1. Vital signs reviewed. Blood pressure 128/67, heart rate 43, respiratory rate 17, temp 97.5 F, and SpO2 of 97% on 3 L. CODE STATUS: Full code DVT prophylaxis: Coumadin Anticipated discharge date: [facility] facility, pending insurance authorization, patient will be eligible for discharge to senior care facility on 10/13/[address]: [facility] facility Patient was seen independently by Nurse Pracitioner. This document was prepared using [employer] dictation software. Please allow for errors in freight car inspector, while rare they do occur. I reviewed the documentation as provided by the SANYA above, who is the original author of this note. I agree with the documented assessment and plan, with the following changes: none Objective - Vital Signs Vital signs: Vital Signs Temp 97.7 F 10/10/23 06:58 Pulse 35 L 10/10/23 06:58 Resp 17 10/10/23 06:58 BP 122/66 10/10/23 06:58 Pulse Ox 94 L 10/10/23 06:58 FiO2 Intake & Output 10/09/23 10/10/23 10/10/23 18:59 06:59 18:59 Output Total 870 300 Balance -870 -300 Output: Urine 870 300 Other: Voiding Method External Catheter External Catheter External Catheter # Voids 3 - Labs CBC & Chem 7: 10/11/23 15:22 10/11/23 04:07 Labs: Abnormal Lab Results - Last 24 Hours (Table) 10/09/23 10/10/23 Range/Units 07:44 03:19 PT 30.4 H (10.0-12.5) sec INR 3.1 H (<1.2) Chloride 109 H (98-107) mmol/L Glucose 157 H (74-99) mg/dL
--- NOTE | 2023-10-10 16:08 | P.PN ---
Progress Note - Text Progress Note Date: 10/10/23 MRI of the Lumbar Spine has been reviewed and due to abnormal signal located along the posterior median and right paramedian spinal canal measuring 1.2 cm wide and 2.5 cm craniocaudal. This may be dural based or intradural and displaces cauda equina nerve roots anteriorly and towards the left. The lesion demonstrates heterogeneous bright T2 signal and diminished T1 signal. The exact etiology is unclear. A focal severe L2-L3 spinal canal stenosis results at this level in part due to this posterior abnormality as well as the disc herniation. Recommendation of transfer to higher level of care for a Neurosurgeon consultation.
[2023-10-10] MEDS: WARFARIN 3 MG TAB PO ONE (20:42)
[2023-10-10 21:51] LABS: T4, Free (Free Thyroxine) 1.25 ng/dL (0.78-2.19)
[2023-10-11 05:13] LABS: INR 2.7 (<1.2); Prothrombin Time 26.8 sec (10.0-12.5)
[2023-10-11 08:50] LABS: HCT 38.4 % (37.2-46.3); HGB 12.5 g/dL (12.0-15.0); MCH 29.1 pg (27.0-32.0); MCHC 32.6 g/dL (32.0-37.0); MCV 89.3 FL (80.0-97.0); Mean Platelet Volume 10.8 FL (9.5-12.2); NRBC Per 100 WBC 0 X 10*3/uL (0.00-0.01); Platelet Count 322 X 10*3/uL (140-440); RDW 13.7 % (11.5-14.5); WBC 12.98 X 10*3/uL (4.50-10.00)
[2023-10-11 08:58] LABS: Blood Urea Nitrogen 23.5 mg/dL (9.0-27.0); Calcium 8.5 mg/dL (8.7-10.3); Carbon Dioxide 22.3 mmol/L (21.6-31.8); Chloride 110 mmol/L (96-109); Glucose 140 mg/dL (70-110); Potassium 3.8 mmol/L (3.5-5.5); Sodium 144 mmol/L (135-145)
[2023-10-11] MEDS ORDERED: HEPARIN SODIUM 1,000 UN/ML (10ML VL) IV PRN (14:01)
--- NOTE | 2023-10-11 14:04 | P.CRDCN ---
History of Present Illness Consult date: 10/11/23 Reason for Consult (text): Asymptomatic bradycardia in the 40s, preop clearance History of present illness: History of present illness: This is a 68-year-old female patient of Dr. Ledezma with past medical history of paroxysmal atrial fibrillation on flecainide, hypertension, dyslipidemia, mild bilateral carotid atherosclerosis, morbid obesity. We have been asked to evaluate the patient for bradycardia asymptomatic in the 40s. Patient presented to the hospital due to back pain and has been evaluated by orthopedic s/p MRI of the lumbar spine that showed an abnormal signal along the posterior medial and paramedian spinal cord and was recommended the patient be transferred to a neurosurgeon. Patient is waiting for bed availability at [facility]. Patient denies having any palpitations, no lightheadedness or dizziness, no c hest pain. EKG sinus rhythm with sinus arrhythmia WBC 12.9, hemoglobin 12.5, INR was initially 3.5 now 2.7. Sodium 144, potassium 3.8, BUN 23 creatinine 1. Home cardiac medications: Atorvastatin 80 mg at bedtime, flecainide 50 mg every 12 hours, lisinopril 30 mg daily, Toprol XL 25 mg as directed, Nitrostat as needed, Coumadin 7.5 on Tuesday and Tuesday. Dobutamine stress echocardiogram performed 03/2021 revealed no ischemia. Echocardiogram performed 03/2020 revealed EF 55 to 60%. Mild tricuspid regurgitation. LA mildly dilated. Review Of Systems: At the time of my exam: CONSTITUTIONAL: Denies fever or chills. HEENT: Denies blurred vision, vision changes, or eye pain. Denies hemoptysis CARDIOVASCULAR: Denies chest pain. Denies orthopnea. Denies PND. Denies palpi tations RESPIRATORY: Denies shortness of breath. GASTROINTESTINAL: Denies abdominal pain. Denies nausea or vomiting. HEMATOLOGIC: Denies bleeding disorders. GENITOURINARY: Denies any blood in urine. SKIN: Denies pruitis. Denies rash. Physical examination: Gen: This is a 68-year-old morbidly obese female in no acute distress. VS: reviewed blood pressure 136/71, heart rate in the 40s, pulse ox 98% on 3 L. HEENT: Head is atraumatic, normocephalic. Pupils equal, round. Sclerae is anicteric. NECK: Supple. No JVD. LUNGS: Clear to auscultation. No wheezes or rhonchi. No intercostal retractions . HEART: Irregular rate and rhythm. No murmur. ABDOMEN: Soft No tenderness. EXTREMITIES: No pedal edema. No calf tenderness. NEUROLOGICAL: Patient is awake, alert and oriented x3. Assessment: Paroxysmal atrial fibrillation currently in sinus rhythm Asymptomatic bradycardia Hypertension Dyslipidemia Mild carotid atherosclerosis Morbid obesity with BMI of 63. Plan: Continue patient's home cardiac medications. Note that flecainide and metoprolol have been held. Obtain 2-D echocardiogram and Doppler study to assess cardiac structure and function Further recommendations to follow based upon clinical course Thank you kindly for this consultation. Nurse practitioner note has been reviewed, I agree with documented findings and plan of care. Patient was seen and examined. 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 Rt breast lumpectomy - negative for cancer per pt. migraines, irregular heartbeat, varicose veins, poor circulation- swelling lower legs and feet, cerebral palsy-uses cane, occipital neuralgia, optic neuritis, veneers front teeth, cardiac stress test, uses cpap, cerebral palsy. History of Any Multi-Drug Resistant Organisms: None Reported Past Surgical History: Cholecystectomy, Heart Catheterization, Hysterectomy, Tonsillectomy Additional Past Surgical History / Comment(s): [place] cataract, benign carotid tumor- removed,cervical discectomy with fusion, R breast lumpectomy neg CA, cox neuromas carlos feet, steroid injections into carlos shoulders,rt hip ,cervical spine last inject 05/14 Past Anesthesia/Blood Transfusion Reactions: Previous Problems w/ Anesthesia, Motion Sickness, Postoperative Nausea & Vomiting (PONV) Additional Past Anesthesia/Blood Transfusion Reaction / Comment(s): diff coming out of anesthesia Past Psychological History: Anxiety, Depression Additional Psychological History / Comment(s): lives alone, uses cane when up also has a rollator Smoking Status: Never smoker Past Alcohol Use History: None Reported Past Drug Use History: None Reported - Past Family History Mother Family Medical History: Hypertension, Osteoarthritis (OA) Additional Family Medical History / Comment(s): neuropathy, carpal tunnel Father Family Medical History: Hypertension Medications and Allergies Home Medications Medication Instructions Recorded Confirmed Type Pantoprazole Sodium [Protonix] 40 mg PO BID 01/03/15 10/08/23 History tiZANidine [Zanaflex] 4 mg PO BID 04/13/21 10/08/23 History Flecainide [Tambocor] 50 mg PO Q12HR 30 Days #60 tab 04/15/21 10/08/23 Rx Warfarin [Coumadin] 7.5 mg PO SUSA 10/28/21 10/10/23 History Atorvastatin [Lipitor] 80 mg PO HS 10/08/23 10/08/23 History Celecoxib [CeleBREX] 200 mg PO DIRECTED 10/08/23 10/08/23 History Cholecalciferol [Vitamin D3 (25 50 mcg PO DAILY 10/08/23 10/08/23 History Mcg = 1000 Iu)] Metoprolol Succinate (ER) [Toprol 25 mg PO DIRECTED 10/08/23 10/08/23 History XL] Nitroglycerin Sl Tabs [Nitrostat] 0.4 mg SUBLINGUAL Q5M PRN 10/08/23 10/08/23 History Oxybutynin Chloride [oxyBUTYnin 15 mg PO HS 10/08/23 10/08/23 History chloride ER] Warfarin Sodium 6 mg PO MOTUWETHFR 10/08/23 10/08/23 History lisinopriL [Zestril] 30 mg PO DAILY 10/08/23 10/08/23 History rOPINIRole HCL [Requip] 5 mg PO HS 10/08/23 10/08/23 History traMADol HCL 50 mg PO TID PRN 10/08/23 10/08/23 History Allergies Allergy/AdvReac Type Severity Reaction Status Date / Time iodine Allergy Rash/Hives, Verified 10/08/23 17:29 itching latex Allergy "redness" Verified 10/08/23 17:29 Physical Exam Vitals: Vital Signs Temp Pulse Resp BP Pulse Ox 10/11/23 07:15 97.7 F 44 L 17 136/71 98 10/11/23 01:35 98.1 F 48 L 17 171/78 95 10/10/23 19:30 97.9 F 46 L 17 161/72 95 10/10/23 15:33 98 10/10/23 13:47 97.5 F L 44 L 17 120/69 95 Intake and Output 10/10/23 10/11/23 10/11/23 22:59 06:59 14:59 Output Total 600 Balance -600 Output: Urine 600 Other: Voiding Method External Catheter External Catheter # Voids 2 Results 10/11/23 04:07 10/11/23 04:07 Coagulation 10/11/23 Range/Units 04:07 PT 26.8 H (10.0-12.5) sec CBC 10/11/23 Range/Units 04:07 WBC 12.98 H (4.50-10.00) X 10*3/uL RBC 4.30 (4.10-5.20) X 10*6/uL Hgb 12.5 (12.0-15.0) g/dL Hct 38.4 (37.2-46.3) % Plt Count 322 (140-440) X 10*3/uL Comprehensive Metabolic Panel 10/11/23 Range/Units 04:07 Sodium 144 (135-145) mmol/L Potassium 3.8 (3.5-5.5) mmol/L Chloride 110 H (96-109) mmol/L Carbon Dioxide 22.3 (21.6-31.8) mmol/L BUN 23.5 (9.0-27.0) mg/dL Creatinine 1.0 (0.6-1.5) mg/dL Glucose 140 H (70-110) mg/dL Calcium 8.5 L (8.7-10.3) mg/dL Current Medications Generic Name Dose Route Start Last Admin Trade Name Zacheryq PRN Reason Stop Dose Admin Acetaminophen 650 mg 10/08/23 16:44 Acetaminophen Tab 325 Mg Tab PO Q6HR PRN Fever and/ or Pain Hydrocodone Bitart/Acetaminophen 1 each 10/08/23 16:44 10/10/23 06:18 Hydrocodone/Apap 5-325mg 1 Each Tab PO 1 each Q6HR PRN Administration Moderate to Severe Pain (4-10) Atorvastatin Calcium 80 mg 10/08/23 21:30 10/10/23 21:12 Atorvastatin 80 Mg Tab PO 80 mg HS JED Administration Cephalexin 500 mg 10/09/23 13:00 10/11/23 09:02 Cephalexin 500 Mg Cap PO 500 mg QID JED Administration Protocol Dexamethasone Sodium Phosphate 4 mg 10/09/23 12:30 10/11/23 05:51 Dexamethasone Sod Phosphate 4 Mg/Ml 1 Ml Vial IVP 4 mg Q6HR JED Administration Gabapentin 300 mg 10/09/23 12:15 10/11/23 09:02 Gabapentin 300 Mg Cap PO 300 mg TID JED Administration Hydromorphone HCl 0.5 mg 10/08/23 15:36 10/08/23 18:45 Hydromorphone 0.5 Mg/0.5 Ml Syringe IVP 0.5 mg Q3HR PRN Administration Moderate Pain (Scale 4 to 6) Lisinopril 30 mg 10/09/23 09:00 10/11/23 09:02 Lisinopril 10 Mg Tab PO 30 mg DAILY JED Administration Miscellaneous Information 1 each 10/08/23 16:45 Warfarin Per Pharmacy MISCELLANE DIRECTED PRN Per Protocol Protocol Naloxone HCl 0.2 mg 10/08/23 15:36 Naloxone 0.4 Mg/Ml 1 Ml Vial IV Q2M PRN Opioid Reversal Ondansetron HCl 4 mg 10/08/23 15:36 Ondansetron 4 Mg/2 Ml Vial IVP Q8HR PRN Nausea And Vomiting Pantoprazole Sodium 40 mg 10/08/23 21:30 10/11/23 09:01 Pantoprazole 40 Mg Tablet PO 40 mg BID JED Administration Ropinirole HCl 5 mg 10/08/23 21:30 10/10/23 21:13 Ropinirole Hcl 1 Mg Tab PO 5 mg HS JED Administration Senna 8.6 mg 10/09/23 09:00 10/11/23 09:02 Sennosides 8.6 Mg Tab PO 8.6 mg DAILY JED Administration Tizanidine HCl 4 mg 10/08/23 21:30 10/11/23 09:09 Tizanidine 4 Mg Tab PO 4 mg BID JED Administration Warfarin Sodium 3 mg 10/11/23 18:00 Warfarin 3 Mg Tab PO 10/11/23 18:01 ONCE@1800 ONE Intake and Output 10/10/23 10/11/23 10/11/23 22:59 06:59 14:59 Output Total 600 Balance -600 Output: Urine 600 Other: Voiding Method External Catheter External Catheter # Voids 2 10/11/23 04:07 10/11/23 04:07
--- NOTE | 2023-10-11 14:05 | P.PN ---
Subjective Progress Note Date: 10/11/23 Hospital course: Patient is a very pleasant 68-year-old female with a past medical history of degenerative disc disease, hypertension, dyslipidemia, GERD, and paroxysmal atrial fibrillation on warfarin. She presented to the emergency department on 10/08/2023 with a chief complaint of bilateral lower extremity weakness. Patient reported she was in her usual state of health and ambulatory until 10/07/2023 when she began experiencing increased lower back pain with pain radiating down her right leg. Patient reportedly took a Zanaflex and gabapentin with some r elief and upon awakening had difficulty moving her left leg with significant weakness to bilateral lower extremities upon standing. She denies experiencing any numbness, tingling, saddle anesthesia or experiencing any involuntary loss of bowel or bladder. She underwent evaluation in the emergency department. Upon arrival vital signs as follows blood pressure 148/79, heart rate 77, respiratory rate 20, temp 98.5 F and SpO2 of 96% on 2 L. EKG was completed showing normal sinus rhythm with occasional PAC. X-ray lumbar spine showing wedging of multiple vertebral body and moderate to severe multilevel disc degeneration. Pelvic x-ray was completed negative for acute osseous pathology showing mild degenerative changes of the hip. Patient was admitted under our services with consultation to orthopedic surgery. [facility] surgery team evaluated and patient underwent MRI lumbar spine. Orthospine surgery team stated patient will need transferred to higher level of care for concerns of in tradural mass/lesion. Orthospine surgery team at bedside and explained in detail to pt need for transfer amd reviewed MRI images with patient. Patient requested [facility] for transfer. Called transfer center for both [facility] and [facility]. Per orthospine surgery team patient to be transferred as soon as possible to first facility that has available bed, as she requires evaluation and intervention by neurosurgery. Patient was accepted to [facility] by neurosurgeon, Dr. Donovan. Patient was also accepted to [facility] under Dr. Judge Neurosurgeon, however they do not have a bed available at this time. [facility] was able to offer patient a bed on 10/10/2023 and arra ngements were made for transfer. However, patient later declined and per RN stated that she could not go to [facility] as it was inconvenient to be transferred to [place] in the middle of the night and due to only having 1 support person she did not want them driving back and forth to [place] and kaia sarabia refused to transfer stating she will wait for a bed to become available at [facility]. This was personally discussed with patient and patient was educated on delay of care can lead to detrimental health defects including risking permanent immobility and paralysis of bilateral lower extremities. Patient alert and oriented to person, place, time, and situation and verbalized understanding of these risks and stated these are risks she is willing to take because she is not willing to be transferred to [place]. At this time we continue to await bed assignment at [facility]. Physical exam: Patient seen and fully evaluated at bedside this morning. Was notified by RN that patient adamantly refused transfer to [facility] for evaluation by neurosmakenna mcguire. Patient reports she continues to have weakness in her lower extremities and continues to deny having any numbness or tingling or involuntary loss of bowel or bladder.. She was thoroughly explained risks of delaying care and patient verbalized understanding and continues to adamantly decline transfer to [facility]. Patient was informed that it may take days before a bed is available at [facility]. Vital signs reviewed and stable. General: Nontoxic, no distress and appears stated age. Derm: Skin warm and dry, normal coloration for ethnicity. Head: Atraumatic, normocephalic and symmetric. Eyes: EOMs intact, no lid lag, and anicteric sclera Mouth: no lip lesions, mucus membranes moist Cardiovascular: regular rate and rhythm with normal S1S2, no murmur, positive posterior tibial pulses bilaterally, and cap refill < 2 seconds. Lungs: Respirations even, regular, and unlabored on room air. Lungs CTA bilaterally, no rhonchi, no rales, no wheezing, and no accessory muscle usage. Abdominal: soft, nontender to palpation, no guarding, no appreciable organomegaly Ext: ROM intact. No gross muscle atrophy, no edema, no contractures Neuro: Speech clear, face symmetrical and CN II-XII grossly intact with no noted focal neuro deficits Psych: Alert and oriented to person, place, time, and situation. Appropriate and pleasant affect. Assessment and Plan of Care: Concerns of intradural lumbar mass, with MRI reports of displacement of cauda equina nerve roots and severe L2-L3 spinal canal stenosis with T12-L1 thecal sac compression and possible cord contact Acute on chronic lower extremity weakness resulting in inability to ambulate Acute on chronic lower back pain Multilevel degenerative disc disease Chronic debility secondary to above along with multiple underlying comorbidities -Ortho spine surgery following, recommending transfer as soon as possible to higher level of care for evaluation and likely intervention by neurosurgeon. -Pain control with oral Tylenol 650 mg p.o. every 6 hours as needed for mild pain, Argyle 5-325 mg tablets every 6 hours as needed for moderate pain and Dil audid 0.5 mg IVP every 3 hours as needed for severe pain. -Order placed for neurochecks every 4 hours and bladder scan to monitor for retention. -Arrangements have been made for transfer to higher level of care, patient awaiting bed assignment at this time. Asymptomatic bradycardia Paroxysmal atrial fibrillation, currently maintaining sinus mechanism Supratherapeutic INR, resolved -Patient with asymptomatic bradycardia but did have a couple episodes of b radycardia with heart rate decreasing into the 30s. Metoprolol was discontinued and a repeat EKG was obtained showing sinus bradycardia with occasional PACs at a rate of 40 bpm. QT/QTc was 490/399 ms. Flecainide was also held at this time pending further recommendations from cardiology. -TSH 0.444 with free T4 of 1.25. -Cardiology consulted and ordered for echocardiogram to be completed. -Supratherapeutic INR resolved and INR in therapeutic range of 2.7. Will start patient on heparin infusion and she requires evaluation and likely intervention by neurosurgeon once a bed is available at facility with higher level of care. -Order placed for low intensity heparin infusion 12 units/kg/h with orders for repeat PTT every 6 hours to closely monitor for goal therapeutic PTT of 44-79 seconds Lactic acidosis. Resolved. Hypertension. Continue daily medication regimen with lisinopril 30 mg daily and metoprolol 25 mg daily. Dyslipidemia. Continue daily medication regimen with atorvastatin 80 mg nightly. GERD. Continue Protonix 40 mg twice daily. Data and imaging reviewed: -Lumbar spine MRI showing broad-based disc bulge at T12-L1 with loss of disc height, moderate anterior thecal sac compression is present with concerns of possible cord contact and some canal narrowing, large right paracentral disc herniation L2-L3 with extension into the forearm and, moderate foraminal stenosis of the lower lumbar spine and in addition to the disc pathology at L2- L3 there also appears to be abnormal signal located along the posterior median and right paramedian spinal canal measuring 1.2 cm wide and 2.5 cm craniocaudal possibly dural based or intradural and displaces cauda equina nerve roots anteriorly and towards the left and a focal severe L2-L3 spinal canal stenosis resulting at this level. -Morning labs reviewed. INR in therapeutic range of 2.7. CBC showing mild leukocytosis with WBC count of 12.0 otherwise normal findings. BMP unremarkable with exception of elevated chloride of 110 and glucose of 140. TSH normal findings at 0.444 with free T41.25. -Vital signs reviewed. Blood pressure 136/71, heart rate 44, respiratory rate 17, temp 97.7 F, and SpO2 of 93% on room air. CODE STATUS: Full code DVT prophylaxis: Coumadin Anticipated discharge date: As soon as bed is available at facility with higher level of care, patient requiring evaluation by neurosurgeon. Anticipated discharge place: Another acute care hospital, patient requiring evaluation and likely intervention by neurosurgery. Patient was seen independently by Nurse Pracitioner. This document was prepared using Hometapper dictation software. Please allow for errors in audiology technician, while rare they do occur. Sanjay Gómez NP rendered care for this patient independently, reviewed the findings and plan as documented in the note above. I did not physically speak with or examine the patient on this date. Objective - Vital Signs Vital signs: Vital Signs Temp 97.7 F 10/11/23 07:15 Pulse 44 L 10/11/23 07:15 Resp 17 10/11/23 07:15 BP 136/71 10/11/23 07:15 Pulse Ox 98 10/11/23 07:15 FiO2 Intake & Output 10/10/23 10/11/23 10/11/23 18:59 06:59 18:59 Output Total 600 Balance -600 Output: Urine 600 Other: Voiding Method External Catheter External Catheter External Catheter # Voids 2 - Labs CBC & Chem 7: 10/11/23 15:22 10/11/23 04:07 Labs: Abnormal Lab Results - Last 24 Hours (Table) 10/10/23 10/11/23 Range/Units 20:20 04:07 PT 26.8 H (10.0-12.5) sec INR 2.7 H (<1.2) TSH 0.444 L (0.465-4.680) mIU/L
[2023-10-11] MEDS: CEPHALEXIN 500 MG CAP PO SCH (15:59)
[2023-10-11 16:00] LABS: Basophils % (A) 0 %; Eosinophils # (A) 0.1 k/uL (0-0.7); Eosinophils % (A) 0 %; HCT 42.7 % (34.0-46.0); HGB 13.8 gm/dL (11.4-16.0); Lymphocytes # (A) 0.5 k/uL (1.0-4.8); Lymphocytes % (A) 5 %; MCH 29.7 pg (25.0-35.0); MCHC 32.5 g/dL (31.0-37.0); MCV 91.4 fL (80.0-100.0); Mean Platelet Volume 8.6; Monocytes # (A) 0.7 k/uL (0-1.0); Monocytes % (A) 6 %; Neutrophils # (A) 10.6 k/uL (1.3-7.7); Neutrophils % (A) 88 %; Platelet Count 334 k/uL (150-450); RBC 4.67 m/uL (3.80-5.40); RDW 14.1 % (11.5-15.5)
[2023-10-11] MEDS: HEPARIN SOD,PORK IN 0.45% NACL 25,000 UNIT in 0.45% NACL 1 250ML.BAG IV SCH (16:00)
--- NOTE | 2023-10-11 16:53 | CA ---
Transthoracic Echo Report Name: Sydni Anthony Age: 68 Gender: F : 1955 Exam Date: 10/11/2023 13:34 Exam Location: [place] [facility] Ht (in): 65 Wt (lb): 380 Ordering Physician: Lexis Anderson Attending/Referring Phys: Research Chemist Carin Joshi RDCS Procedure CPT: Indications: LVF Cardiac Hx: Technical Quality: Fair Contrast 1: Total Dose (mL): Contrast 2: Total Dose (mL): MEASUREMENTS (Male / Female) Normal Values 2D ECHO LV Diastolic Diameter PLAX 5.7 cm 4.2 - 5.9 / 3.9 - 5.3 cm LV Systolic Diameter PLAX 3.4 cm IVS Diastolic Thickness 1.3 cm 0.6 - 1.0 / 0.6 - 0.9 cm LVPW Diastolic Thickness 1.3 cm 0.6 - 1.0 / 0.6 - 0.9 cm LV Relative Wall Thickness 0.4 RV Internal Dim ED PLAX 3.0 cm LA Systolic Diameter LX 3.4 cm 3.0 - 4.0 / 2.7 - 3.8 cm LV Diastolic Volume MOD BP 89.4 cm??? 67 - 155 / 56 - 104 cm??? LV Systolic Volume MOD BP 32.9 cm??? 22 - 58 / 19 - 49 cm??? LV Ejection Fraction MOD BP 63.1 % >= 55 % LV Cardiac Index MOD BP 1059.4 cm???/min???m??? LV Diastolic Volume MOD 4C 107.6 cm??? LV Systolic Volume MOD 4C 46.6 cm??? LV Ejection Fraction MOD 4C 56.7 % LV Cardiac Index MOD 4C 1145.2 cm???/min???m??? LV Diastolic Length 4C 7.9 cm LV Systolic Length 4C 6.3 cm LV Diastolic Volume MOD 2C 72.4 cm??? LV Systolic Volume MOD 2C 23.0 cm??? LV Ejection Fraction MOD 2C 68.2 % LV Cardiac Index MOD 2C 927.9 cm???/min???m??? LV Diastolic Length 2C 7.6 cm LV Systolic Length 2C 6.0 cm LA Volume 69.0 cm??? 18 - 58 / 22 - 52 cm??? LA Volume Index 23.6 cm???/m??? 16 - 28 cm???/m??? M-MODE Aortic Root Diameter MM 3.3 cm MV E Point Septal Separation 0.6 cm AV Cusp Separation MM 2.2 cm DOPPLER AV Peak Velocity 158.6 cm/s AV Peak Gradient 10.1 mmHg MV Area PHT 2.8 cm??? Mitral E Point Velocity 92.8 cm/s Mitral A Point Velocity 88.5 cm/s Mitral E to A Ratio 1.0 MV Deceleration Time 275.5 ms FINDINGS Left Ventricle Left ventricular ejection fraction is estimated at 50-55 %. Mildly increased septal wall thickness. Mildly increased posterior wall thickness. Mildly increased left ventricular diastolic diameter. Right Ventricle Normal right ventricular size. Unable to estimate the right ventricular systolic pressure. Right Atrium Normal right atrial size. Left Atrium Moderately increased left atrial volume. Mildly increased left atrial area. Mitral Valve Structurally normal mitral valve. No mitral stenosis, regurgitation or prolapse. Aortic Valve Trileaflet aortic valve. No aortic valve stenosis or regurgitation. Tricuspid Valve Structurally normal tricuspid valve. No tricuspid stenosis, regurgitation or prolapse. Pulmonic Valve Pulmonic valve not well visualized. No pulmonic regurgitation. Pericardium No pericardial effusion. Aorta Normal size aortic root and proximal ascending aorta. CONCLUSIONS Normal LV systolic function Dilated left atrium Previewed by: Dr. New Vargas MD (Electronically Signed) Final Date: 11 October 2023 16:52
[2023-10-11] MEDS ORDERED: WARFARIN 3 MG TAB PO ONE (18:00)
[2023-10-11 18:49] LABS: INR 2.27 sec (0.93-1.11); Prothrombin Time 23.2 sec (9.9-11.9)
[2023-10-11 20:57] LABS: INR 2.1 (<1.2); Prothrombin Time 20.6 sec (10.0-12.5)
[2023-10-11 22:19] VITALS: BP 193/77; PULSE 59; TEMP 97.5
--- NOTE | 2023-10-12 07:46 | P.DS ---
Providers Date of admission: 10/10/23 12:19 Expected date of discharge: 10/11/23 Attending physician: Johnny Lyles MD Consults: 10/08/23 15:36 Consult Physician Urgent Consulting Provider: William Goldberg Consult Reason/Comments: back pain Do you want consulting provider notified?: Yes 10/10/23 18:36 Consult Physician Routine Consulting Provider: New Vargas Consult Reason/Comments: asymptomatic bradycardia, HR 40's Do you want consulting provider notified?: Yes Primary care physician: Long Palmer MD Hospital Course: Discharge Diagnosis: Concerns of intradural lumbar mass, with MRI reports of displacement of cauda equina nerve roots and severe L2-L3 spinal canal stenosis with T12-L1 thecal sac compression and possible cord contact Acute on chronic lower extremity weakness resulting in inability to ambulate Acute on chronic lower back pain Multilevel degenerative disc disease Chronic debility secondary to above along with multiple underlying comorbidities -Ortho spine surgery evaluated, recommending transfer as soon as possible to higher level of care for evaluation and likely intervention by neurosurgeon. -Pain control with oral Tylenol 650 mg p.o. every 6 hours as needed for mild pain, Belden 5-325 mg tablets every 6 hours as needed for moderate pain and Dilaudid 0.5 mg IVP every 3 hours as needed for severe pain. -Order placed for neurochecks every 4 hours and bladder scan to monitor for retention. -Arrangements have been made for transfer to higher level of care, patient awaiting bed assignment at this time. Asymptomatic bradycardia Paroxysmal atrial fibrillation, currently maintaining sinus mechanism Supratherapeutic INR, resolved -Patient with asymptomatic bradycardia but did have a couple episodes of bradycardia with heart rate decreasing into the 30s. Metoprolol was discontinued and a repeat EKG was obtained showing sinus bradycardia with occasional PACs at a rate of 40 bpm. QT/QTc was 490/399 ms. Flecainide was also held at this time pending further recommendations from cardiology. -Echocardiogram completed showing a preserved EF of 50 to 55% with reports of dilated left atrium. -TSH 0.444 with free T4 of 1.25. -Cardiology consulted and ordered for echocardiogram to be completed. -Supratherapeutic INR resolved and INR in therapeutic range of 2.7. Patient was started on heparin infusion as she requires evaluation and likely intervention by neurosurgeon once a bed is available at facility with higher level of care. -Order placed for low intensity heparin infusion 12 units/kg/h with orders for repeat PTT every 6 hours to closely monitor for goal therapeutic PTT of 44-79 seconds Lactic acidosis. Resolved. Hypertension. Continue daily medication regimen with lisinopril 30 mg daily and metoprolol 25 mg daily. Dyslipidemia. Continue daily medication regimen with atorvastatin 80 mg nightly. GERD. Continue Protonix 40 mg twice daily. Hospital course: Patient is a very pleasant 68-year-old female with a past medical history of degenerative disc disease, hypertension, dyslipidemia, GERD, and paroxysmal atrial fibrillation on warfarin. She presented to the emergency department on 10/08/2023 with a chief complaint of bilateral lower extremity weakness. Patient reported she was in her usual state of health and ambulatory until 10/07/2023 when she began experiencing increased lower back pain with pain radiating down her right leg. Patient reportedly took a Zanaflex and gabapentin with some relief and upon awakening had difficulty moving her left leg with significant weakness to bilateral lower extremities upon standing. She denies experiencing any numbness, tingling, saddle anesthesia or experiencing any involuntary loss of bowel or bladder. She underwent evaluation in the emergency department. Upon arrival vital signs as follows blood pressure 148/79, heart rate 77, respiratory rate 20, temp 98.5 F and SpO2 of 96% on 2 L. EKG was completed showing normal sinus rhythm with occasional PAC. X-ray lumbar spine showing wedging of multiple vertebral body and moderate to severe multilevel disc degeneration. Pelvic x-ray was completed negative for acute osseous pathology showing mild degenerative changes of the hip. Patient was admitted under our services with consultation to orthopedic surgery. [facility] surgery team evaluated and patient underwent MRI lumbar spine. Orthospine surgery team stated patient will need transferred to higher level of care for concerns of intradural mass/lesion. Orthospine surgery team at bedside and explained in detail to pt need for transfer amd reviewed MRI images with patient. Patient requested [facility] for transfer. Called transfer center for both [facility] and [facility]. Per orthospine surgery team patient to be transferred as soon as possible to first facility that has available bed, as she requires e valuation and intervention by neurosurgery. Patient was accepted to [facility] by neurosurgeon, Dr. Donovan. Patient was also accepted to [facility] under Dr. Judge Neurosurgeon, however they do not have a bed available at this time. [facility] was able to offer patient a bed on 10/10/2023 and arrangements were made for transfer. However, patient later declined and per RN stated that she could not go to [facility] as it was inconvenient to be transferred to [place] in the middle of the night and due to only having 1 support person she did not want them driving back and forth to [place] and patient refused to transfer stating she will wait for a bed to become available at [facility]. This was personally discussed with patient and patient was educated on delay of care can lead to detrimental health defects including risking permanent immobility and paralysis of bilateral lower extremities. Patient alert and oriented to person, place, time, and situation and verbalized understanding of these risks and stated these are risks she is willing to take because she is not willing to be transferred to [place]. Patient received a bed at [facility] on 10/11/2023 and was transferred to their facility at 9:56 PM This document was prepared using Jamgle dictation software. Please allow for errors in assistant associate professor while rare they do occur. I reviewed the documentation as provided by the SANYA above, who is the original author of this note. I agree with the documented assessment and plan, with the following changes: none Patient Condition at Discharge: Stable Plan - Discharge Summary New Discharge Prescriptions: No Action Pantoprazole Sodium [Protonix] 40 mg PO BID Flecainide [Tambocor] 50 mg PO Q12HR 30 Days #60 tab Warfarin [Coumadin] 7.5 mg PO SUSA traMADol HCL 50 mg PO TID PRN PRN Reason: Pain rOPINIRole HCL [Requip] 5 mg PO HS Oxybutynin Chloride [oxyBUTYnin chloride ER] 15 mg PO HS lisinopriL [Zestril] 30 mg PO DAILY Nitroglycerin Sl Tabs [Nitrostat] 0.4 mg SUBLINGUAL Q5M PRN PRN Reason: Chest Pain Metoprolol Succinate (ER) [Toprol XL] 25 mg PO DIRECTED Warfarin Sodium 6 mg PO MOTUWETHFR tiZANidine [Zanaflex] 4 mg PO BID Celecoxib [CeleBREX] 200 mg PO DIRECTED Atorvastatin [Lipitor] 80 mg PO HS Cholecalciferol [Vitamin D3 (25 Mcg = 1000 Iu)] 50 mcg PO DAILY Discharge Medication List Pantoprazole Sodium [Protonix] 40 mg PO BID 01/03/15 [History] tiZANidine [Zanaflex] 4 mg PO BID 04/13/21 [History] Flecainide [Tambocor] 50 mg PO Q12HR 30 Days #60 tab 04/15/21 [Rx] Warfarin [Coumadin] 7.5 mg PO SUSA 10/28/21 [History] Atorvastatin [Lipitor] 80 mg PO HS 10/08/23 [History] Celecoxib [CeleBREX] 200 mg PO DIRECTED 10/08/23 [History] Cholecalciferol [Vitamin D3 (25 Mcg = 1000 Iu)] 50 mcg PO DAILY 10/08/23 [History] Metoprolol Succinate (ER) [Toprol XL] 25 mg PO DIRECTED 10/08/23 [History] Nitroglycerin Sl Tabs [Nitrostat] 0.4 mg SUBLINGUAL Q5M PRN 10/08/23 [History] Oxybutynin Chloride [oxyBUTYnin chloride ER] 15 mg PO HS 10/08/23 [History] Warfarin Sodium 6 mg PO MOTUWETHFR 10/08/23 [History] lisinopriL [Zestril] 30 mg PO DAILY 10/08/23 [History] rOPINIRole HCL [Requip] 5 mg PO HS 10/08/23 [History] traMADol HCL 50 mg PO TID PRN 10/08/23 [History] Follow up Appointment(s)/Referral(s): Long Palmer MD [Primary Care Provider] - 1-2 days Patient Instructions/Handouts: Warfarin (By mouth), Vitamin K in Foods (DC) Discharge Disposition: TRANSFER TO SNF/ECF
== END 2023-10-11 22:00 | disposition short-term general hospital (02) | DRG 552 ==
LOC: EC 11:09 → 5NMEDONC 15:27 → 4SSUR 18:10 → OBSVTOIN 10-10 12:19 → 4SSUR 10-10 12:48
PROVIDERS: ADMIT Student in an Organized Health Care Education/Training Program; ATTEND Student in an Organized Health Care Education/Training Program
DX: M51.16 Intervertebral disc disorders with radiculopathy, lumbar region (principal); L03.115 Cellulitis of right lower limb; M48.56XA Collapsed vertebra, not elsewhere classified, lumbar region, initial encounter for fracture; Z68.44 Body mass index [BMI] 60.0-69.9, adult; E87.20 Acidosis, unspecified; E66.01 Morbid (severe) obesity due to excess calories; E78.5 Hyperlipidemia, unspecified; F32.A Depression, unspecified; F41.9 Anxiety disorder, unspecified; G89.29 Other chronic pain; I11.0 Hypertensive heart disease with heart failure; I48.0 Paroxysmal atrial fibrillation; I50.9 Heart failure, unspecified; I65.29 Occlusion and stenosis of unspecified carotid artery; K21.9 Gastro-esophageal reflux disease without esophagitis; M47.26 Other spondylosis with radiculopathy, lumbar region; M48.061 Spinal stenosis, lumbar region without neurogenic claudication; M79.7 Fibromyalgia; R79.1 Abnormal coagulation profile; Z96.653 Presence of artificial knee joint, bilateral; Z79.01 Long term (current) use of anticoagulants; Z79.899 Other long term (current) drug therapy; Z82.49 Family history of ischemic heart disease and other diseases of the circulatory system; Z88.8 Allergy status to other drugs, medicaments and biological substances; Z91.040 Latex allergy status
CPT/HCPCS: 36415; 72100; 72148; 72170; 80048; 80053; 81003; 83605; 83735; 84439; 84443; 85025; 85027; 85610; 85730; 93005; 93306; 94760; 96361; 96374; 96375; 99285